=== PATIENT | female | born 1940 | race Caucasian/White ===

== ENCOUNTER 2017-06-09 17:10 | Inpatient (IN) | payer OTHER, MEDICAID ==
[~2017-06-09] VITALS: Ht 152.4 cm; Wt 46.0 kg
[~2017-06-09 17:10] MED LIST: SYN1 PO; VIT1CAPS PO
[2017-06-09 17:13] VITALS: Ht 152.4 cm; Wt 46.0 kg
[2017-06-09] MEDS ORDERED: SOD CHLORIDE 0.9% 1,000 ML IV STA ×4 (20:57→23:50)
[2017-06-09] MEDS ORDERED: ONDANSETRON 4 MG INJ IV STA (20:57)
[2017-06-09] MEDS ORDERED: morphine 2 MG INJ IV STA (20:57)
[2017-06-09 21:58] LABS: ADD SCAN DIFF NO
[2017-06-09 22:00] LABS: BASOPHILS % 0.1 % (0.0-2.0); HEMATOCRIT 50.7 % (37.0-47.0); HEMOGLOBIN 16.4 g/dl (12.0-16.0); LYMPHOCYTES # 1.1 10^3/ul (0.8-2.9); LYMPHOCYTES % 7.1 % (15.0-51.0); MEAN CORPUSCULAR HEMOGLOBIN 29.3 pg (29.0-33.0); MEAN CORPUSCULAR HGB CONC 32.3 g/dl (32.0-37.0); MEAN CORPUSCULAR VOLUME 90.5 fl (82.0-101.0); MEAN PLATELET VOLUME 11.2 fl (7.4-10.4); MONOCYTE # 1.2 10^3/ul (0.3-0.9); MONOCYTES % 7.7 % (0.0-11.0); NEUTROPHIL # 13.3 10^3/ul (1.6-7.5); NEUTROPHILS % 84.1 % (39.0-77.0); PLATELET COUNT 338 10^3/UL (140-415); RED CELL DISTRIBUTION WIDTH 15.4 % (11.5-14.5); WHITE BLOOD COUNT 15.8 10^3/ul (4.8-10.8)
[2017-06-09] MEDS ORDERED: MULTI PO (22:03)
[2017-06-09 22:20] LABS: INR 1.09; PARTIAL THROMBOPLASTIN TIME 27.5 Sec (25.0-35.0); PROTIME 14.1 Sec (12.2-14.2); PT RATIO 1.1
[2017-06-09 22:21] LABS: ALBUMIN 4.2 g/dl (3.3-4.9); ALBUMIN/GLOBULIN RATIO 1.31; BILIRUBIN,INDIRECT 1.1 mg/dl (0-1.1); BILIRUBIN,TOTAL 1.1 mg/dl (0.2-1.3); CALCIUM 9.7 mg/dl (8.4-10.2); CREATININE 1.67 mg/dl (0.44-1.00); POTASSIUM 4.2 mmol/L (3.5-5.1); TOTAL PROTEIN 7.4 g/dl (6.1-8.1)
--- NOTE | 2017-06-09 23:21 | RADRPT ---
PROCEDURE: CT abdomen and pelvis without contrast. CLINICAL INDICATION: Abdomen and back pain TECHNIQUE: CT scan of the abdomen and pelvis without contrast was performed. Sagittal and coronal reformatted images were obtained from the axial source images. CTDI = 10.12 mGy; DLP = 416.66 mGy-c m COMPARISON: None available FINDINGS: Visualized lower thorax: The right lung base is clear. The entire visible left lower hemithorax sh ows a huge pleural effusion with compressive atelectasis of the left lung and deviation of the media stinal structures to the right, the attenuation of the fluid approximately 16 HU. No right pleural effusion is present. Liver, gallbladder, pancreas and spleen: The liver is normal and size, contour and attenuation. Th ere is no evidence for a liver mass or ductal dilatation. The gallbladder is unremarkable. No comm on bile duct abnormality is demonstrated. The pancreas is unremarkable. The spleen is normal in si ze. Adrenal glands and genitourinary system: The adrenal glands are normal bilaterally. The kidneys are normal and size, contour and attenuation with no evidence for masses, calculi or hydronephrosis. T he ureters are unremarkable. No urinary bladder abnormality is demonstrated. Multiple calcified ut erine leiomyomata are present. Gastrointestinal system: The stomach is normal in caliber with no abnormality of significance. The small bowel is normal in caliber with no ileus, obstruction or wall thickening. The appendix and s urrounding fat are within the limits of normal. Diffuse diverticular disease of the distal colon is present. There is no evidence for colitis or diverticulitis. Peritoneum, retroperitoneum, lymph nodes and vessels: The abdominal aorta is normal in caliber. The re is moderate aortic and iliac atherosclerotic calcification. The inferior vena cava is unremarkab le. There is no evidence for adenopathy or mass. There is no ascites. No pneumoperitoneum is prese nt. Osseous structures and musculoskeletal findings: There is no fracture, lytic or blastic lesion. En d plate Schmorl's nodes and thoracic spondylosis is present with degenerative disk disease at L5-S1. No muscular abnormality or soft tissue pathology is present. RPTAT:HJJR IMPRESSION: 1. Large left pleural effusion with compressive atelectasis of the visualized mediastinal structures and inferior displacement of the left hemidiaphragm. Consider consultation for thoracentesis. 2. No evidence of bowel obstruction or acute intra-abdominal pathology. 3. Calcified uterine leiomyomata.. 4. Aortic atherosclerosis is present. Brady Monroy, Physician Date Time Electronically viewed and signed by Brady Monroy, Physician on 06/09/2017 23:20 JR/
--- NOTE | 2017-06-09 23:59 | ERA ---
ER Documentation Chief Complaint Date/Time DATE: 06/09/17 TIME: 23:51 Chief Complaint Complains of severe back pain HPI This is a 76-year-old female that presents to the emergency department complaining of left flank pain that has been persistent for the past 2 weeks after the patient experienced a ground-level trip and fall. The patient had gone to her chiropractor and had radiographic imaging of her lumbar spine and pelvis which indicated there is no fractures. She states however that the left flank pain has now radiated to the left thoracic region. There is no alleviating or exacerbating factors. She has had no fever shaking or chills. She denies any gross hematuria no frequency urgency or dysuria. She denies a headache. She indicates she has a remote history of breast carcinoma that was treated with oral chemotherapy agents but cannot remember the name of her oncologist or when she took this medication. She denies any neck pain and no numbness of her upper or lower extremities. ROS All systems reviewed and are negative except as per history of present illness. Medications Home Meds Reported Medications Multivitamins* (Theragran*) 1 Tab Tab, 1 TAB PO DAILY, TAB 06/09/17 Levothyroxine Sodium* (Synthroid*) 100 Mcg Tablet, 100 MCG PO DAILY 01/09/14 Discontinued Reported Medications Vit A/Vit C/Vit E/Zinc/Copper (ICAPS AREDS SOFTGEL) 1 Each Capsule, 2 EACH PO DAILY 01/09/14 Allergies Allergies: Coded Allergies: Penicillins (Verified Allergy, Unknown, 06/09/17) Sulfa (Sulfonamide Antibiotics) (Verified Allergy, Unknown, 06/09/17) PMhx/Soc History of Surgery: Yes (LEFT BREAST REMOVAL, LEFT LYMPH NODES,THYROIDECTOMY) Anesthesia Reaction: No Hx Neurological Disorder: No Hx Respiratory Disorders: No Hx Cardiac Disorders: No Hx Psychiatric Problems: No Hx Miscellaneous Medical Probl: No Hx Alcohol Use: No Hx Substance Use: No Hx Tobacco Use: No Smoking Status: Never smoker Physical Exam Vitals Vital Signs Date Time Temp Pulse Resp B/P Pulse Ox O2 Delivery O2 Flow Rate FiO2 06/09/17 20:10 97.6 104 20 122/90 96 Room Air 06/09/17 17:13 97.6 117 20 114/65 94 Physical Exam Constitutional:Well-developed. Cachectic HEENT:Normocephalic. Atraumatic.Pupils were equal round reactive to light. Dry mucous membranes.No tonsillar exudates. Neck: No nuchal rigidity. No lymphadenopathy. No posterior cervical spine tenderness or step-offs. Respiratory: Not using accessory muscles of respiration.Lungs were clear to auscultation bilaterally. No rhonchi. No rales. No wheezing. Cardiovascular: Regular rate regular rhythm.No murmurs. No rubs were appreciated.S1, S2 normal. Distal pulses are palpable 2+ bilaterally. GI: Abdomen was soft. Nontender. Non Distended. No pulsatile abdominal masses or bruits. No rebound. No guarding. Bowel sounds were present and normal. Left flank tenderness and tenderness over the left parathoracic region. Muscle skeletal: Full range of motion of both the upper and lower extremities bilaterally.Normal muscle tone.No assymetrical calf tenderness or swelling. 1+ pitting edema the bilateral lower extremities. Lower extremities are equal length and symmetrical with no internal/external rotation peer Skin: No petechia, no purpura. No lesions on the palms or the soles of the feet. No maculopapular rash. Erythematous plaque over the left chest wall which patient states is due to a Danielle infection several years prior to arrival NEURO: Patient was alert, awake, orientated x3.No facial droop. Gait observed and normal with no ataxia.Speech had regular rate and rhythm. No focal neurological deficits. Result Diagram: 06/09/17213206/09/172132 Results 24 hrs Laboratory Tests Test 06/09/17 21:33 White Blood Count 15.810^3/ul Red Blood Count 5.6010^6/ul Hemoglobin 16.4g/dl Hematocrit 50.7% Mean Corpuscular Volume 90.5fl Mean Corpuscular Hemoglobin 29.3pg Mean Corpuscular Hemoglobin Concent 32.3g/dl Red Cell Distribution Width 15.4% Platelet Count 24502^3/UL Mean Platelet Volume 11.2fl Neutrophils % 84.1% Lymphocytes % 7.1% Monocytes % 7.7% Eosinophils % 0.0% Basophils % 0.1% Nucleated Red Blood Cells % 0.0/100WBC Neutrophils # 13.310^3/ul Lymphocytes # 1.110^3/ul Monocytes # 1.210^3/ul Eosinophils # 0.010^3/ul Basophils # 0.010^3/ul Nucleated Red Blood Cells # 0.010^3/ul Prothrombin Time 14.1Sec Prothrombin Time Ratio 1.1 INR International Normalized Ratio 1.09 Activated Partial Thromboplast Time 27.5Sec Sodium Level 132mmol/L Potassium Level 4.2mmol/L Chloride Level 100mmol/L Carbon Dioxide Level 22mmol/L Anion Gap 14 Blood Urea Nitrogen 65mg/dl Creatinine 1.67mg/dl Glucose Level 111mg/dl Calcium Level 9.7mg/dl Total Bilirubin 1.1mg/dl Direct Bilirubin 0.00mg/dl Indirect Bilirubin 1.1mg/dl Aspartate Amino Transf (AST/SGOT) 52IU/L Alanine Aminotransferase (ALT/SGPT) 75IU/L Alkaline Phosphatase 118IU/L Total Protein 7.4g/dl Albumin 4.2g/dl Globulin 3.20g/dl Albumin/Globulin Ratio 1.31 Current Medications Medications (Trade) Dose Ordered Sig/Aparna Route PRN Reason Start Time Stop Time Status Last Admin Dose Admin Sodium Chloride (NS) 1,000 ml @ 1,000 mls/hr Q1H STAT IV 06/09/17 20:57 06/09/17 21:56 DC 06/09/17 21:36 Morphine Sulfate (morphine) 2 mg ONCE STAT IV 06/09/17 20:57 06/09/17 20:59 DC 06/09/17 21:35 Ondansetron HCl 4 mg 4 mg ONCE STAT IV 06/09/17 20:57 06/09/17 20:59 DC 06/09/17 21:35 Sodium Chloride 1,000 ml @ 1,000 mls/hr Q1H STAT IV 06/09/17 23:29 06/10/17 00:28 Sodium Chloride (NS) 1,000 ml @ 1,000 mls/hr Q1H STAT IV 06/09/17 23:46 06/10/17 00:45 UNV Procedures/MDM The patient presented to the emergency department with flank pain after a ground -level trip and fall. My differential diagnosis included but was not limited to spinal origins of the pain such as fracture, osteomyelitis, epidural abscess, neoplasm, spondylolishtesis, discogenic, cauda equina syndrome or musculoligamentous. Nonspinal causes such as AAA, upper UTI, renal colic, aortic dissection, abdominal neoplasm were also considered as an etiology into their pain. I obtained radiographic imaging a CT scan of the patient's abdomen without contrast due to the patient having acute renal failure that was likely prerenal secondary to dehydration and treated with IV fluids. The CT scan indicated that the patient had the followin. Large left pleural effusion with compressive atelectasis of the visualized mediastinal structures and inferior displacement of the left hemidiaphragm. Consider consultation for thoracentesis. 2. No evidence of bowel obstruction or acute intra-abdominal pathology. 3. Calcified uterine leiomyomata.. 4. Aortic atherosclerosis is present. The patient's primary care physician I have spoken with and stated that she is currently on vacation until June 30 and therefore requested that the patient be admitted to the panel physician which was Dr. Estes who kindly stated he would admit the patient to the medical surgical floor in serious condition for further evaluation into the patient's pleural effusion which could be a result of a malignant neoplasm and there did not appear to be any rib fractures or pneumothorax that was seen on the chest radiograph reviewed by myself the radiologist. Blood cultures and urine cultures were obtained and the patient was started on prophylactic antibiotics as I could not rule out an underlying pulmonary infectious process. Patient was afebrile but had leukocytosis Departure Diagnosis: Primary Impression: Injury of back Qualified Code: S39.92XA - Injury of back, initial encounter Additional Impressions: Pleural effusion Prerenal azotemia Condition: Serious CRYSTAL IZAGUIRRE Jun 09, 2017 23:59
[2017-06-10] VITALS (10 sets, daily range): BP systolic 70–152; BP diastolic 51–74; PULSE 86–105; RESP 18–26; TEMP 97.8
[2017-06-10] MEDS ORDERED: NACL 0.9% 3 ML SYG IV SCH
[2017-06-10] MEDS ORDERED: ACETAMINOPHEN 325 MG TAB PO PRN
--- NOTE | 2017-06-10 00:18 | RADRPT ---
PROCEDURE: XR Chest. CLINICAL INDICATION: Left side chest pain. TECHNIQUE: Single frontal view of the chest COMPARISON: 01/18/2014. FINDINGS: Complete opacification of the left hemithorax is new over interval cardiac and mediastinal shift to the right. Findings suggest a lung mass and effusion. Recommend CT examination of the chest for fu rther evaluation. The osseous structures and soft tissues are unremarkable. IMPRESSION: 1. New complete opacification left hemithorax with left to right midline shift of mediastinum and h eart. 2. Findings suggest lung mass and effusion. 3. Recommend CT examination the chest for further evaluation. RPTAT: [facility] Physician Vicky Date Time Electronically viewed and signed by Physician Vicky on 06/10/2017 00:18 RS/
[2017-06-10] MEDS: morphine 2 MG INJ IV PRN ×3 (01:16→13:36)
--- NOTE | 2017-06-10 03:00 | HP ---
Date/Time of Note Date/Time of Note DATE: 06/10/17 TIME: 02:55 Assessment/Plan VTE Prophylaxis VTE Prophylaxis Intervention: SCD's Assessment/Plan Chief Complaint/Hosp Course This is a 76-year-old female being admitted to the telemetry floor for: #1 Large left pleural effusion/mass: Patient has been experiencing left back pain for approximately [address] of the abdomen and pelvis did show pleural effusions of the left side and a chest x-ray showed almost complete whiteout of the left lung secondary to pleural effusion and/or mass. CT of the chest was recommended and I discussed this with the patient and she would prefer to have this in the morning so she can rest overnight. As the patient is currently stable, I will order a CT chest in the a.m. Will get a pulmonary consult. Likely will need IR guided thoracentesis/biopsy depending on the CT chest findings. She does have a past history of breast cancer which raises a concern for this being possible malignant effusion/possible underlying mass. #2 Leukocytosis: Patient at the current time does not have any fevers no cough. No signs of infection however there could be concern of possible pneumonia with the appearance of her lungs on the chest x-ray. This also could be reactive. At the current time we will continue to monitor the patient and I will hold off on any antibiotics at this time. If there are any fevers or any signs of infection or any further findings on the CT scan of the chest we will start antibiotics. #3 acute kidney injury: Patient does appear to be dehydrated at this time. Will provide IV fluid hydration. Continue to monitor kidney function. #4 history of breast cancer: Patient is status post right radical mastectomy. In light of #1 we will consider hematology consult depending on the findings of the CT of the chest and/or thoracentesis/biopsy if indeed that is what ends up being ordered. #5 back pain: She did have a fall 2 weeks ago at the current time there are no signs of any acute fractures on XR or CT of the abdomen and pelvis. Will get evaluation CT of the chest. Her pain may be multifactorial secondary to her pleural effusion and/or mass as opposed to from her fall. #6 DVT and GI prophylaxis: SCDs, protonix Further treatment strategy will be implemented as per the clinical course Problems: HPI/ROS Admit Date/Time Admit Date/Time Hx of Present Illness CC: left flank pain for 2 weeks This is a 76-year-old female that presents to the emergency department complaining of left flank pain that has been persistent for the past 2 weeks after the patient experienced a ground-level trip and fall. The patient had gone to her chiropractor and had radiographic imaging of her lumbar spine and pelvis which indicated there is no fractures. She states however that the left flank pain has now radiated to the left thoracic region. There is no alleviating or exacerbating factors. She has had no fever shaking or chills. She denies any gross hematuria no frequency urgency or dysuria. She denies a headache. She indicates she has a remote history of breast carcinoma that was treated with oral chemotherapy agents but cannot remember the name of her oncologist or when she took this medication. She denies any neck pain and no numbness of her upper or lower extremities. allergies: Penicillin, sulfa Medications: See NEREIDA RAMIREZ Const: As per HPI Eyes : No pain discharge or redness or change in visual acuity ENT: No pain, sore throat, congestion, congestion, dysphagia or discharge Respiratory: As per HPI Cardiovascular: No chest pain, palpitation, PND, or edema GI : no change in appetite, abdominal pain, nausea, vomiting, diarrhea, constipation, or change in the color his stool Genitourinary: No dysuria, hematuria, flank pain , discharge or CVA tenderness Musculoskeletal: As per HPI Skin: No rash, bruising or hives Neuro: No headache, dizziness, syncope, seizure, focal weakness Endocrine: No polyuria, polydipsia, temperature intolerance Psych: No hallucination, depression, anxiety or suicidal ideation PMH/Family/Social Past Medical History Breast cancer, hypothyroidism Past Surgical History Left breast mastectomy, thyroidectomy Family History Significant Family History: cancer Social History Alcohol Use: none Smoking Status: Never smoker Drug Use: none Exam/Review of Systems Vital Signs Vitals Vital Signs Date Time Temp Pulse Resp B/P Pulse Ox O2 Delivery O2 Flow Rate FiO2 06/10/17 01:01 97.6 95 20 101/86 94 Room Air Exam Exam General: Patient is a frail appearing female in mild distress from pain HEENT: Atraumatic, normocephalic. The pupils are equal, round and reactive. Extraocular motor are intact Neck: Supple with full range of motion. No rigidity or meningismus Chest: Nontender Lungs: Decreased breath sounds on the left side of the lung guo Heart: Normal S1-S2, Regular rhythm and rate. No overt murmur Abdomen: Soft , nontender, nondistended , bowel sounds are present. No guarding no rebound tenderness , No masses or organomegaly. No costovertebral temporal angle mass Extremities: Normal to inspection, no edema no cyanosis Neurologic: Normal mental status, speech normal, cranial nerves II through XII are intact, motor and sensory are intact, no focal weakness Additional Comments PROCEDURE: XR Chest. CLINICAL INDICATION: Left side chest pain. TECHNIQUE: Single frontal view of the chest COMPARISON: 01/18/2014. FINDINGS: Complete opacification of the left hemithorax is new over interval cardiac and mediastinal shift to the right. Findings suggest a lung mass and effusion. Recommend CT examination of the chest for further evaluation. The osseous structures and soft tissues are unremarkable. IMPRESSION: 1. New complete opacification left hemithorax with left to right midline shift of mediastinum and heart. 2. Findings suggest lung mass and effusion. 3. Recommend CT examination the chest for further evaluation. RPTAT: [facility] Physician Vicky Date Time Electronically viewed and signed by Physician Vicky on 06/10/2017 00:18 PROCEDURE: CT abdomen and pelvis without contrast. CLINICAL INDICATION: Abdomen and back pain TECHNIQUE: CT scan of the abdomen and pelvis without contrast was performed. Sagittal and coronal reformatted images were obtained from the axial source images. CTDI = 10.12 mGy; DLP = 416.66 mGy-cm COMPARISON: None available FINDINGS: Visualized lower thorax: The right lung base is clear. The entire visible left lower hemithorax shows a huge pleural effusion with compressive atelectasis of the left lung and deviation of the mediastinal structures to the right, the attenuation of the fluid approximately 16 HU. No right pleural effusion is present. Liver, gallbladder, pancreas and spleen: The liver is normal and size, contour and attenuation. There is no evidence for a liver mass or ductal dilatation. The gallbladder is unremarkable. No common bile duct abnormality is demonstrated. The pancreas is unremarkable. The spleen is normal in size. Adrenal glands and genitourinary system: The adrenal glands are normal bilaterally. The kidneys are normal and size, contour and attenuation with no evidence for masses, calculi or hydronephrosis. The ureters are unremarkable. No urinary bladder abnormality is demonstrated. Multiple calcified uterine leiomyomata are present. Gastrointestinal system: The stomach is normal in caliber with no abnormality of significance. The small bowel is normal in caliber with no ileus, obstruction or wall thickening. The appendix and surrounding fat are within the limits of normal. Diffuse diverticular disease of the distal colon is present. There is no evidence for colitis or diverticulitis. Peritoneum, retroperitoneum, lymph nodes and vessels: The abdominal aorta is normal in caliber. There is moderate aortic and iliac atherosclerotic calcification. The inferior vena cava is unremarkable. There is no evidence for adenopathy or mass. There is no ascites. No pneumoperitoneum is present. Osseous structures and musculoskeletal findings: There is no fracture, lytic or blastic lesion. End plate Schmorl's nodes and thoracic spondylosis is present with degenerative disk disease at L5-S1. No muscular abnormality or soft tissue pathology is present. RPTAT:HJJR IMPRESSION: 1. Large left pleural effusion with compressive atelectasis of the visualized mediastinal structures and inferior displacement of the left hemidiaphragm. Consider consultation for thoracentesis. 2. No evidence of bowel obstruction or acute intra-abdominal pathology. 3. Calcified uterine leiomyomata.. 4. Aortic atherosclerosis is present. Physician Yuriy Date Time Electronically viewed and signed by Physician Yuriy on 06/09/2017 23:20 Labs Result Diagram: 06/09/17213206/09/172132 Medications Medications Current Medications Ondansetron HCl (Zofran Inj) 4 mg Q6H PRN IV NAUSEA AND/OR VOMITING; Start at 00:00 Acetaminophen (Tylenol Tab) 650 mg Q6H PRN PO PAIN LEVEL 1-3 OR FEVER; Start at 00:00 Morphine Sulfate (morphine) 1 mg Q4H PRN IV PAIN LEVEL 7-10 Last administered on 06/10/17t 01:16; Admin Dose 1 MG; Start 06/10/17 at 00:00 Pantoprazole (Protonix Iv) 40 mg DAILY@06 IV ; Start 06/10/17 at 06:00 GAGANDEEP TOVAR Jun 10, 2017 03:00
[2017-06-10 03:38] LABS: CK-MB 4.45 ng/ml (0.0-2.4); TROPONIN-I 0.039 ng/ml (0.00-0.12)
[2017-06-10] MEDS: LEVOTHYROXINE 100 MCG TAB PO SCH (05:28)
[2017-06-10] MEDS: PANTOPRAZOLE 40 MG INJ IV SCH (05:32)
[2017-06-10 06:00] LABS: ADD SCAN DIFF NO
[2017-06-10 06:51] LABS: ALBUMIN 3.7 g/dl (3.3-4.9); ALBUMIN/GLOBULIN RATIO 1.19; BILIRUBIN,INDIRECT 0.8 mg/dl (0-1.1); BILIRUBIN,TOTAL 0.8 mg/dl (0.2-1.3); CALCIUM 8.9 mg/dl (8.4-10.2); CREATININE 1.4 mg/dl (0.44-1.00); MAGNESIUM 2.5 mg/dl (1.7-2.5); POTASSIUM 4.3 mmol/L (3.5-5.1); TOTAL PROTEIN 6.8 g/dl (6.1-8.1)
[2017-06-10 07:26] LABS: THYROID STIMULATING HORMONE 2.08 MIU/L (0.465-4.680)
[2017-06-10 08:57] LABS: BASOPHILS % 0.1 % (0.0-2.0); HEMATOCRIT 50.2 % (37.0-47.0); HEMOGLOBIN 15.8 g/dl (12.0-16.0); LYMPHOCYTES % 6.8 % (15.0-51.0); MEAN CORPUSCULAR HEMOGLOBIN 29.2 pg (29.0-33.0); MEAN CORPUSCULAR HGB CONC 31.5 g/dl (32.0-37.0); MEAN CORPUSCULAR VOLUME 92.6 fl (82.0-101.0); MEAN PLATELET VOLUME 11.4 fl (7.4-10.4); MONOCYTE # 1.3 10^3/ul (0.3-0.9); MONOCYTES % 8.6 % (0.0-11.0); NEUTROPHIL # 12.5 10^3/ul (1.6-7.5); NEUTROPHILS % 83.5 % (39.0-77.0); PLATELET COUNT 286 10^3/UL (140-415); RED BLOOD COUNT 5.42 10^6/ul (4.20-5.40); RED CELL DISTRIBUTION WIDTH 15.8 % (11.5-14.5); WHITE BLOOD COUNT 14.9 10^3/ul (4.8-10.8)
--- NOTE | 2017-06-10 10:13 | RADRPT ---
PROCEDURE: CT Chest without contrast. CLINICAL INDICATION: Left pleural effusion, mass TECHNIQUE: CT of the chest was performed on a multi-detector scanner without IV contrast. Coronal and sagittal images were reformatted from the axial data set. One or more of the following dose re duction techniques were used: automated exposure control, adjustment of the mA and/or kV according t o patient size, use of iterative reconstruction technique. CTDI = 6.89 mGy. DLP = 279.42 mGy-cm. COMPARISON: CT, 01/09/2014 FINDINGS: Large left pleural effusion is identified, filling and expanding of the left hemithorax, with comple te collapse of the left lung. There is significant shift of mediastinal structures to the right, arellano ggestive of tension hydrothorax. Small right pleural effusion is identified. Areas of chronic scar ring and bronchiectasis are seen in the right lung. The central tracheobronchial tree is clear. No gross evidence of pulmonary nodule or mass is identified. The heart size is normal without pericardial effusion. Coronary arterial and aortic atherosclerotic calcifications are present. There is no thoracic aortic aneurysm. No mediastinal, hilar, axillary or supraclavicular lymphadenopathy is identified. Visualized portions of the upper abdomen demonstrate no acute abnormality. The surrounding osseous structures are remarkable for scoliosis and degenerative enthesopathy of the spine. No osteolytic o r osteoblastic lesion is detected. IMPRESSION: 1. 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 Consider thoracentesis for further evaluation. 2. Coronary arterial and aortic atherosclerotic calcifications are present. 3. Small right pleural effusion is seen as well. 4. No gross evidence of mass or lymphadenopathy is identified. Above findings were communicated by telephone to JEET Turcios on 06/10/2017 10:08:41 AM. RPTAT: PP .Hermes Roberts MD, Date Time Electronically viewed and signed by .Hermes Roberts MD, MD on 06/10/2017 10:13 .R/
[2017-06-10] MEDS: MULTIVITAMINS THERAPEUTIC TAB PO SCH ×2 (11:28→11:34)
--- NOTE | 2017-06-10 15:13 | CONS ---
Date/Time of Note Date/Time of Note DATE: 06/10/17 TIME: 15:09 Assessment/Plan Assessment/Plan Chief Complaint/Hosp Course Assessment 1. Acute hypoxemic respiratory failure likely secondary to pleural effusion 2. Pleural effusion likely malignant given history of breast cancer 3. Weight loss and cachexia concerning for progressive metastatic disease Plan 1. Thoracentesis Pleural fluid studies including cytology Gram stain culture LDH and protein 2. May require chest tube or Pleurx catheter 3. Consider hematology oncology evaluation 4. Will require social work input patient is unlikely to be able to live by myself at present 5. DVT and GI prophylaxis Problems: Consultation Date/Type/Reason Admit Date/Time Date of Consultation: Jun 10, 2017 Type of Consultation: Pulmonary Reason for Consultation Shortness of breath Hx of Present Illness 76-year-old lady with a history of left breast cancer status post mastectomy. Here for evaluation of shortness of breath which she states has been progressive over the past few weeks. Associated with orthopnea and PND. On admission she was found to have significant extensive large left pleural effusion with mediastinal shift. She denies any fever chills chest pain or palpitations. She has had worsening appetite over the past few months with significant weight loss which she is unable to quantify. She is currently a non -smoker denies any significant alcohol intake. She lives by herself Past Medical History Breast cancer with left mastectomy radiation Past Surgical History Left mastectomy 1997 Social History Alcohol Use: none Smoking Status: Never smoker Drug Use: none Exam/Review of Systems Vital Signs Vitals Vital Signs Date Time Temp Pulse Resp B/P Pulse Ox O2 Delivery O2 Flow Rate FiO2 06/10/17 13:33 99 22 109/74 97 Nasal Cannula 2.0 06/10/17 07:30 97.8 Exam GENERAL: Thin cachectic elderly lady comfortable at rest talking full complete sentences VITAL SIGNS: per chart NECK: Supple. No JVD or lymphadenopathy. CARDIAC EXAM: S1, S2. No added sounds or murmurs. CHEST: diminished air entry left lung ABDOMEN: Soft, nontender. No guarding or rebound. EXTREMITIES: No cyanosis, clubbing or edema. NEUROLOGIC: Generalized weakness. No focal deficits. Results Chest x-ray Left lung opacification with mediastinal shift CT chest extensive left pleural effusion Result Diagram: 06/10/17 0530 06/10/17 0530 Results 24 hrs Laboratory Tests Test 06/09/17 21:33 06/10/17 02:50 06/10/17 05:30 White Blood Count 15.8 H 14.9 H Red Blood Count 5.60 H 5.42 H Hemoglobin 16.4 H 15.8 Hematocrit 50.7 H 50.2 H Mean Corpuscular Volume 90.5 92.6 Mean Corpuscular Hemoglobin 29.3 29.2 Mean Corpuscular Hemoglobin Concent 32.3 31.5 L Red Cell Distribution Width 15.4 H 15.8 H Platelet Count 338 286 Mean Platelet Volume 11.2 H 11.4 H Neutrophils % 84.1 H 83.5 H Lymphocytes % 7.1 L 6.8 L Monocytes % 7.7 8.6 Eosinophils % 0.0 0.0 Basophils % 0.1 0.1 Nucleated Red Blood Cells % 0.0 0.0 Neutrophils # 13.3 H 12.5 H Lymphocytes # 1.1 1.0 Monocytes # 1.2 H 1.3 H Eosinophils # 0.0 0.0 Basophils # 0.0 0.0 Nucleated Red Blood Cells # 0.0 0.0 Prothrombin Time 14.1 Prothrombin Time Ratio 1.1 INR International Normalized Ratio 1.09 Activated Partial Thromboplast Time 27.5 Sodium Level 132 L 131 L Potassium Level 4.2 4.3 Chloride Level 100 106 Carbon Dioxide Level 22 16 L Anion Gap 14 13 Blood Urea Nitrogen 65 H 60 H Creatinine 1.67 H 1.40 H Glucose Level 111 118 Calcium Level 9.7 8.9 Total Bilirubin 1.1 0.8 Direct Bilirubin 0.00 0.00 Indirect Bilirubin 1.1 0.8 Aspartate Amino Transf (AST/SGOT) 52 H 55 H Alanine Aminotransferase (ALT/SGPT) 75 H 75 H Alkaline Phosphatase 118 120 Total Protein 7.4 6.8 Albumin 4.2 3.7 Globulin 3.20 3.10 Albumin/Globulin Ratio 1.31 1.19 Creatine Kinase 97 Creatine Kinase Index 4.6 Creatinine Kinase MB (Mass) 4.45 H Troponin I 0.039 Hemoglobin A1c 5.3 Magnesium Level 2.5 Thyroid Stimulating Hormone (TSH) 2.080 Medications Medications Current Medications Ondansetron HCl (Zofran Inj) 4 mg Q6H PRN IV NAUSEA AND/OR VOMITING; Start at 00:00 Acetaminophen (Tylenol Tab) 650 mg Q6H PRN PO PAIN LEVEL 1-3 OR FEVER; Start at 00:00 Morphine Sulfate (morphine) 1 mg Q4H PRN IV PAIN LEVEL 7-10 Last administered on 06/10/17 13:36; Admin Dose 1 MG; Start 06/10/17 at 00:00 Pantoprazole (Protonix Iv) 40 mg DAILY@06 IV Last administered on 06/10/17 05: 32; Admin Dose 40 MG; Start 06/10/17 at 06:00 Levothyroxine Sodium (Synthroid) 100 mcg DAILY@06 PO Last administered on 05:28; Admin Dose 100 MCG; Start 06/10/17 at 06:00 Multivitamins Therapeutic (Theragran) 1 tab DAILY PO ; Start 06/10/17 at 09:00 LILLY MOODY MD, [facility] Jun 10, 2017 15:13
[2017-06-10] MEDS ORDERED: LIDOCAINE 1% (MPF) 5 ML VIAL ONE (15:36)
--- NOTE | 2017-06-10 15:49 | RADRPT ---
PROCEDURE: US guided left thoracentesis. CLINICAL INDICATION: Shortness of breath. Left pleural effusion. TECHNIQUE: Prior to the procedure, informed consent was obtained. The risks, benefits, and alternatives were e xplained to the patient or the patient's family, including but not limited to bleeding, infection, p ain, visceral or vascular damage, shock, pneumothorax, chest tube placement, air embolism, and . The patient or the patient's family understood the risks and the alternatives and wished to proce ed with the study. Informed written consent was obtained. A procedural pause was performed. The patient's name, date of , and procedure to be performed were verified. Ultrasound of the left hemithorax was performed in the axial and sagittal planes. A left pleural eff usion is noted. Utilizing ultrasound guidance, optimal location for entry to the pleural cavity was ascertained. The overlying skin was prepped and draped in the usual sterile fashion. Approximately 10 ml of 1% Xylocaine was injected locally for pain control. Using ultrasound guidance, a 5-Thai Yueh catheter was introduced into the left pleural space without difficulty. Fluid was aspirated. COMPARISON: None. FINDINGS: Initial ultrasound demonstrates fluid in the left pleural space. Approximately 2.0 liters of serous fluid was aspirated and sent to the laboratory. IMPRESSION: 1. Satisfactory ultrasound-guided left thoracentesis. RPTAT: QQ .Christiano Jimenes MD, Date Time Electronically viewed and signed by .Christiano Jimenes MD, on 06/10/2017 15:49 .R/
--- NOTE | 2017-06-10 15:56 | RADRPT ---
PROCEDURE: XR Chest. CLINICAL INDICATION: Shortness of breath. Post left thoracentesis. TECHNIQUE: Single frontal view. COMPARISON: 06/09/2017. FINDINGS: Previously noted left pleural effusion is now smaller and there is some improved aeration of the lef t upper lobe. The remainder of the left mid and lower lung zones are completely collapsed. Shift of the mediastinum to the right is no longer present. The right lung is clear and there is no right p leural effusion. The heart size is normal. There is no pneumothorax. IMPRESSION: 1. No pneumothorax following left thoracentesis. 2. There remains a large left pleural effusion and atelectasis throughout the left mid and lower sin ng zones. RPTAT: QQ .Christiano Jimenes MD, MD Date Time Electronically viewed and signed by .Christiano Jimenes MD, on 06/10/2017 15:55 .R/
[2017-06-10 17:46] LABS: FLUID LYMPHOCYTES 2 %; FLUID MONOCYTES 1 %
[2017-06-10 17:47] LABS: FLD TYPE THORACENTHESIS
[2017-06-10 17:48] LABS: FLD CLARITY HAZY; FLD COLOR YELLOW; FLD WBC 512 /cmm; FLUID NEUTROPHILS 0 %; FLUID RBC EST 1+
[2017-06-10 18:45] LABS: FLUID TOTAL PROTEIN 4.8 g/dl
[2017-06-10 18:46] LABS: FLUID GLUCOSE < 20 mg/dl
[2017-06-10 18:47] LABS: FLUID TYPE THORACENTESIS FLUID
[2017-06-10] MEDS ORDERED: SOD CHLORIDE 0.9% 500 ML IV ONE (20:00)
[2017-06-10] MEDS ORDERED: VANCOMYCIN IV PER PHARMACY XX SCH (23:00)
[2017-06-11] VITALS (18 sets, daily range): BP systolic 77–113; BP diastolic 43–90; PULSE 93–108; RESP 17–27
[2017-06-11] MEDS ORDERED: VANCOMYCIN 1 GM in NS 250 ML IVPB SCH (00:30)
[2017-06-11] MEDS ORDERED: SOD CHLORIDE 0.9% 500 ML IV ONE (04:30)
[2017-06-11] MEDS: PANTOPRAZOLE 40 MG INJ IV SCH (05:07)
[2017-06-11] MEDS: LEVOTHYROXINE 100 MCG TAB PO SCH (05:08)
[2017-06-11 08:17] LABS: ADD SCAN DIFF NO
[2017-06-11 08:22] LABS: ABNORMAL IP MESSAGE 1; HEMATOCRIT 52.2 % (37.0-47.0); HEMOGLOBIN 16.5 g/dl (12.0-16.0); MEAN CORPUSCULAR HEMOGLOBIN 29.4 pg (29.0-33.0); MEAN CORPUSCULAR HGB CONC 31.6 g/dl (32.0-37.0); MEAN PLATELET VOLUME 10.9 fl (7.4-10.4); PLATELET COUNT 236 10^3/UL (140-415); RED BLOOD COUNT 5.61 10^6/ul (4.20-5.40); RED CELL DISTRIBUTION WIDTH 15.8 % (11.5-14.5); WHITE BLOOD COUNT 22.8 10^3/ul (4.8-10.8)
[2017-06-11] MEDS: MULTIVITAMINS THERAPEUTIC TAB PO SCH (08:28)
[2017-06-11 08:43] LABS: ALBUMIN 3.2 g/dl (3.3-4.9); ALBUMIN/GLOBULIN RATIO 1.1; BILIRUBIN,INDIRECT 0.8 mg/dl (0-1.1); BILIRUBIN,TOTAL 0.8 mg/dl (0.2-1.3); CALCIUM 8.7 mg/dl (8.4-10.2); CREATININE 1.61 mg/dl (0.44-1.00); POTASSIUM 4.4 mmol/L (3.5-5.1); TOTAL PROTEIN 6.1 g/dl (6.1-8.1)
[2017-06-11 09:57] LABS: CHOL/HDL RATIO 5.2 RATIO; MAGNESIUM 2.6 mg/dl (1.7-2.5); PHOSPHORUS 4.7 mg/dl (2.5-4.9)
[2017-06-11 11:13] LABS: ANISOCYTOSIS 1+; BURR CELLS OCCASIONAL; LYMPHOCYTES # 0.9 10^3/ul (0.8-2.9); MONOCYTE # 1.4 10^3/ul (0.3-0.9); NEUTROPHIL # 20.3 10^3/ul (1.6-7.5)
[2017-06-11] MEDS ORDERED: SOD CHLORIDE 0.9% 250 ML IV ONE ×2 (12:00→17:30)
--- NOTE | 2017-06-11 12:17 | PN ---
Date/Time of Note Date/Time of Note DATE: 06/11/17 TIME: 12:15 Assessment/Plan VTE Prophylaxis VTE Prophylaxis Intervention: SCD's Lines/Catheters IV Catheter Type (from [facility], [place]): Saline Lock Urinary Cath still in place: No Assessment/Plan Chief Complaint/Hosp Course 1. Acute hypoxic respiratory failure. Most probably secondary to pleural effusion. Continue inhaled bronchodilators. Continue supplemental oxygen. Status post left-sided thoracentesis on 06/10/2017. 2. Left-sided pleural effusion. 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 Status post thoracentesis on 06/10/2017 with the drainage of 2 L of serous fluid. Fluid studies pending. 3. Sepsis. Most probably secondary to left sided pneumonia with the one positive blood culture. The patient has been started on antibiotics. Will escalate antibiotic therapy. Involve infectious diseases on the case. 4. Acute kidney injury. Nonoliguric. Unknown baseline creatinine. Will avoid nephrotoxic medications. 5. History of breast cancer. Status post left radical mastectomy. 6. Protein calorie malnutrition. Mild. Encourage dietary supplements. 7. Hypothyroidism. Continue Synthroid. 8. Fluids, electrolytes, and nutrition. Regular diet as tolerated. 9. DVT prophylaxis. Bilateral sequential compression devices. 10. Gastrointestinal prophylaxis. Proton pump inhibitors. 11. Plan. Continue supplemental oxygen. Continue inhaled bronchodilators. Await further recommendations from consultants. Case discussed with . Problems: Subjective 24 Hr Interval Summary Free Text/Dictation Denies any dyspnea. Exam/Review of Systems Vital Signs Vitals Vital Signs Date Time Temp Pulse Resp B/P Pulse Ox O2 Delivery O2 Flow Rate FiO2 06/11/17 11:54 97.9 105 17 79/50 92 06/11/17 08:30 Nasal Cannula 2.0 Intake and Output 06/10/17 06/10/17 06/11/17 15:00 23:00 07:00 Intake Total 500 ml 1230 ml Output Total 300 ml Balance 500 ml 930 ml Exam General: Thin, malnourished, frail looking 68 year-old male lying in bed in no apparent distress. HEENT: Normocephalic, atraumatic. Eyes: Anicteric sclerae, conjunctivae clear. ENT: Nasal septum midline, oral mucosa moist. Neck supple, no JVD noticed. Respiratory: Bilaterally diminished breath sounds. Use of accessory muscles of respiration. Cardiovascular: S1, S2 heard. No murmurs or gallops. Abdomen: Soft, nontender, and nondistended. Bowel sounds positive in all 4 quadrants. Genitourinary: Deferred. Extremities: No cyanosis, no clubbing. Bilateral lower extremity 2+ pitting edema. Pedal pulses diminished Neurologic: Cranial nerves II through XII grossly intact. The patient is awake an alert. Oriented 3. Psychology: Hostile affect. Results Result Diagram: 06/11/17 0757 06/11/17 0757 Results 24 hrs Laboratory Tests Test 06/10/17 15:00 06/11/17 07:57 06/11/17 08:00 Body Fluid Type THORACENTESIS FLUID Body Fluid Volume 1100.0 Body Fluid Color YELLOW Body Fluid Appearance HAZY Body Fluid WBC 512 Body Fluid RBC 1+ Body Fluid Neutrophils % 0 Body Fluid Lymphocytes (%) 2 Body Fluid Monocytes % 1 Body Fluid Other Cells (%) 97 Body Fluid Glucose < 20 Body Fluid Total Protein 4.8 Body Fluid Lactate Dehydrogenase White Blood Count 22.8 #H Red Blood Count 5.61 H Hemoglobin 16.5 H Hematocrit 52.2 H Mean Corpuscular Volume 93.0 Mean Corpuscular Hemoglobin 29.4 Mean Corpuscular Hemoglobin Concent 31.6 L Red Cell Distribution Width 15.8 H Platelet Count 236 Mean Platelet Volume 10.9 H Neutrophils % 89.0 H Band Neutrophils % 1.0 Lymphocytes % 4.0 L Monocytes % 6.0 Neutrophils # 20.3 H Lymphocytes # 0.9 Monocytes # 1.4 H Anisocytosis 1+ Sodium Level 140 Potassium Level 4.4 Chloride Level 106 Carbon Dioxide Level 18 L Anion Gap 20 #H Blood Urea Nitrogen 68 H Creatinine 1.61 H Glucose Level 101 Calcium Level 8.7 Total Bilirubin 0.8 Direct Bilirubin 0.00 Indirect Bilirubin 0.8 Aspartate Amino Transf (AST/SGOT) 52 H Alanine Aminotransferase (ALT/SGPT) 62 Alkaline Phosphatase 100 Total Protein 6.1 Albumin 3.2 L Globulin 2.90 Albumin/Globulin Ratio 1.10 Phosphorus Level 4.7 Magnesium Level 2.6 H Triglycerides Level 149 Cholesterol Level 184 LDL Cholesterol, Calculated 119 HDL Cholesterol 35 Cholesterol/HDL Ratio 5.2 Medications Medications Current Medications Ondansetron HCl (Zofran Inj) 4 mg Q6H PRN IV NAUSEA AND/OR VOMITING; Start at 00:00 Acetaminophen (Tylenol Tab) 650 mg Q6H PRN PO PAIN LEVEL 1-3 OR FEVER; Start at 00:00 Morphine Sulfate (morphine) 1 mg Q4H PRN IV PAIN LEVEL 7-10 Last administered on 06/10/17 13:36; Admin Dose 1 MG; Start 06/10/17 at 00:00 Pantoprazole (Protonix Iv) 40 mg DAILY@06 IV Last administered on 06/11/17 05: 07; Admin Dose 40 MG; Start 06/10/17 at 06:00 Levothyroxine Sodium (Synthroid) 100 mcg DAILY@06 PO Last administered on 05:08; Admin Dose 100 MCG; Start 06/10/17 at 06:00 Multivitamins Therapeutic 1 tab 1 tab DAILY PO Last administered on 06/11/17 08:28; Admin Dose 1 TAB; Start 06/10/17 at 09:00 Vancomycin HCl/ Sodium Chloride (Vancocin/NS) 150 ml @ 75 mls/hr Q36H IVPB ; Start 06/12/17 at 13:00 Dimethicone 1 applic 1 applic Q2H PRN TOP dry lips.; Start 06/11/17 at 09:00 Sodium Chloride (NS) 250 ml @ 250 mls/hr Q1H ONCE IV ; Start 06/11/17 at 12:00 ; Stop 06/11/17 at 12:59 TRAVIS SORIANO NP Jun 11, 2017 12:17
--- NOTE | 2017-06-11 12:37 | CONS ---
Date/Time of Note Date/Time of Note DATE: 06/11/17 TIME: 12:35 Consult Date/Type/Reason Admit Date/Time Jun 10, 2017 at 00:01 Initial Consult Date 06/10/17 Type of Consultation: Pulmonary Subjective Awake and alert this morning somewhat agitated and combative. Objective Vital Signs Date Time Temp Pulse Resp B/P Pulse Ox O2 Delivery O2 Flow Rate FiO2 06/11/17 11:54 97.9 105 17 79/50 92 06/11/17 08:30 Nasal Cannula 2.0 Intake and Output 06/10/17 06/10/17 06/11/17 15:00 23:00 07:00 Intake Total 500 ml 1230 ml Output Total 300 ml Balance 500 ml 930 ml Exam GENERAL: Thin elderly cachectic lady awake alert comfortable mild confusion. VITAL SIGNS: per chart NECK: Supple. No JVD or lymphadenopathy. CARDIAC EXAM: S1, S2. No added sounds or murmurs. CHEST: Diminished air entry left base ABDOMEN: Soft, nontender. No guarding or rebound. EXTREMITIES: No cyanosis, clubbing or edema. NEUROLOGIC: Generalized weakness. No focal deficits. Results/Medications Result Diagram: 06/11/17 0757 06/11/17 0757 Results 24 hrs Laboratory Tests Test 06/10/17 15:00 06/11/17 07:57 06/11/17 08:00 Body Fluid Type THORACENTESIS FLUID Body Fluid Volume 1100.0 Body Fluid Color YELLOW Body Fluid Appearance HAZY Body Fluid WBC 512 Body Fluid RBC 1+ Body Fluid Neutrophils % 0 Body Fluid Lymphocytes (%) 2 Body Fluid Monocytes % 1 Body Fluid Other Cells (%) 97 Body Fluid Glucose < 20 Body Fluid Total Protein 4.8 Body Fluid Lactate Dehydrogenase White Blood Count 22.8 #H Red Blood Count 5.61 H Hemoglobin 16.5 H Hematocrit 52.2 H Mean Corpuscular Volume 93.0 Mean Corpuscular Hemoglobin 29.4 Mean Corpuscular Hemoglobin Concent 31.6 L Red Cell Distribution Width 15.8 H Platelet Count 236 Mean Platelet Volume 10.9 H Neutrophils % 89.0 H Band Neutrophils % 1.0 Lymphocytes % 4.0 L Monocytes % 6.0 Neutrophils # 20.3 H Lymphocytes # 0.9 Monocytes # 1.4 H Anisocytosis 1+ Sodium Level 140 Potassium Level 4.4 Chloride Level 106 Carbon Dioxide Level 18 L Anion Gap 20 #H Blood Urea Nitrogen 68 H Creatinine 1.61 H Glucose Level 101 Calcium Level 8.7 Total Bilirubin 0.8 Direct Bilirubin 0.00 Indirect Bilirubin 0.8 Aspartate Amino Transf (AST/SGOT) 52 H Alanine Aminotransferase (ALT/SGPT) 62 Alkaline Phosphatase 100 Total Protein 6.1 Albumin 3.2 L Globulin 2.90 Albumin/Globulin Ratio 1.10 Phosphorus Level 4.7 Magnesium Level 2.6 H Triglycerides Level 149 Cholesterol Level 184 LDL Cholesterol, Calculated 119 HDL Cholesterol 35 Cholesterol/HDL Ratio 5.2 Medications Current Medications Ondansetron HCl (Zofran Inj) 4 mg Q6H PRN IV NAUSEA AND/OR VOMITING; Start at 00:00 Acetaminophen (Tylenol Tab) 650 mg Q6H PRN PO PAIN LEVEL 1-3 OR FEVER; Start at 00:00 Morphine Sulfate (morphine) 1 mg Q4H PRN IV PAIN LEVEL 7-10 Last administered on 06/10/17 13:36; Admin Dose 1 MG; Start 06/10/17 at 00:00 Pantoprazole (Protonix Iv) 40 mg DAILY@06 IV Last administered on 06/11/17 05: 07; Admin Dose 40 MG; Start 06/10/17 at 06:00 Levothyroxine Sodium (Synthroid) 100 mcg DAILY@06 PO Last administered on 05:08; Admin Dose 100 MCG; Start 06/10/17 at 06:00 Multivitamins Therapeutic 1 tab 1 tab DAILY PO Last administered on 06/11/17 08:28; Admin Dose 1 TAB; Start 06/10/17 at 09:00 Vancomycin HCl/ Sodium Chloride (Vancocin/NS) 150 ml @ 75 mls/hr Q36H IVPB ; Start 06/12/17 at 13:00 Dimethicone 1 applic 1 applic Q2H PRN TOP dry lips.; Start 06/11/17 at 09:00 Sodium Chloride 250 ml @ 250 mls/hr Q1H ONCE IV Last administered on 12:03; Admin Dose 250 MLS/HR; Start 06/11/17 at 12:00; Stop 06/11/17 at 12: 59 Cefepime HCl (Maxipime 1gm/50 ml (Pmx)) 50 ml @ 100 mls/hr Q24H IVPB ; Start at 14:00 Assessment/Plan Chief Complaint/Hosp Course Assessment 1. Acute hypoxemic respiratory failure likely secondary to pleural effusion 2. Pleural effusion likely malignant given history of breast cancer, status post thoracentesis 2 L still with significant fluid in the pleural space. 3. Weight loss and cachexia concerning for progressive metastatic disease 4. Hypotension possibly underlying sepsis and/or adrenal insufficiency. Plan 1. Elevated pleural fluid protein concerning for malignancy. 2. May require chest tube or Pleurx catheter 3. Consider hematology oncology evaluation 4. Agree with transfer to intensive care unit for further monitoring. 5. DVT and GI prophylaxis Problems: LILLY MOODY MD, [facility] Jun 11, 2017 12:37
[2017-06-11] MEDS: CEFEPIME 1GM/50 ML (PMX) 50 ML IVPB SCH (13:58)
--- NOTE | 2017-06-11 14:45 | CONS ---
Date/Time of Note Date/Time of Note DATE: 06/11/17 TIME: 14:44 Consultation Date/Type/Reason Admit Date/Time Jun 10, 2017 at 00:01 Type of Consultation: ID Social History Alcohol Use: none Smoking Status: Never smoker Drug Use: none Exam/Review of Systems Vital Signs Vitals Vital Signs Date Time Temp Pulse Resp B/P Pulse Ox O2 Delivery O2 Flow Rate FiO2 06/11/17 14:07 100 96/65 06/11/17 11:54 97.9 17 92 06/11/17 08:30 Nasal Cannula 2.0 Intake and Output 06/10/17 06/10/17 06/11/17 15:00 23:00 07:00 Intake Total 500 ml 1230 ml Output Total 300 ml Balance 500 ml 930 ml Results Result Diagram: 06/11/17 0757 06/11/17 0757 Results 24 hrs Laboratory Tests Test 06/10/17 15:00 06/11/17 07:57 06/11/17 08:00 Body Fluid Type THORACENTESIS FLUID Body Fluid Volume 1100.0 Body Fluid Color YELLOW Body Fluid Appearance HAZY Body Fluid WBC 512 Body Fluid RBC 1+ Body Fluid Neutrophils % 0 Body Fluid Lymphocytes (%) 2 Body Fluid Monocytes % 1 Body Fluid Other Cells (%) 97 Body Fluid Glucose < 20 Body Fluid Total Protein 4.8 Body Fluid Lactate Dehydrogenase White Blood Count 22.8 #H Red Blood Count 5.61 H Hemoglobin 16.5 H Hematocrit 52.2 H Mean Corpuscular Volume 93.0 Mean Corpuscular Hemoglobin 29.4 Mean Corpuscular Hemoglobin Concent 31.6 L Red Cell Distribution Width 15.8 H Platelet Count 236 Mean Platelet Volume 10.9 H Neutrophils % 89.0 H Band Neutrophils % 1.0 Lymphocytes % 4.0 L Monocytes % 6.0 Neutrophils # 20.3 H Lymphocytes # 0.9 Monocytes # 1.4 H Anisocytosis 1+ Sodium Level 140 Potassium Level 4.4 Chloride Level 106 Carbon Dioxide Level 18 L Anion Gap 20 #H Blood Urea Nitrogen 68 H Creatinine 1.61 H Glucose Level 101 Calcium Level 8.7 Total Bilirubin 0.8 Direct Bilirubin 0.00 Indirect Bilirubin 0.8 Aspartate Amino Transf (AST/SGOT) 52 H Alanine Aminotransferase (ALT/SGPT) 62 Alkaline Phosphatase 100 Total Protein 6.1 Albumin 3.2 L Globulin 2.90 Albumin/Globulin Ratio 1.10 Phosphorus Level 4.7 Magnesium Level 2.6 H Triglycerides Level 149 Cholesterol Level 184 LDL Cholesterol, Calculated 119 HDL Cholesterol 35 Cholesterol/HDL Ratio 5.2 Medications Medications Current Medications Ondansetron HCl (Zofran Inj) 4 mg Q6H PRN IV NAUSEA AND/OR VOMITING; Start at 00:00 Acetaminophen (Tylenol Tab) 650 mg Q6H PRN PO PAIN LEVEL 1-3 OR FEVER; Start at 00:00 Morphine Sulfate (morphine) 1 mg Q4H PRN IV PAIN LEVEL 7-10 Last administered on 06/10/17 13:36; Admin Dose 1 MG; Start 06/10/17 at 00:00 Pantoprazole (Protonix Iv) 40 mg DAILY@06 IV Last administered on 06/11/17 05: 07; Admin Dose 40 MG; Start 06/10/17 at 06:00 Levothyroxine Sodium (Synthroid) 100 mcg DAILY@06 PO Last administered on 05:08; Admin Dose 100 MCG; Start 06/10/17 at 06:00 Multivitamins Therapeutic 1 tab 1 tab DAILY PO Last administered on 06/11/17 08:28; Admin Dose 1 TAB; Start 06/10/17 at 09:00 Vancomycin HCl/ Sodium Chloride (Vancocin/NS) 150 ml @ 75 mls/hr Q36H IVPB ; Start 06/12/17 at 13:00 Dimethicone 1 applic 1 applic Q2H PRN TOP dry lips.; Start 06/11/17 at 09:00 Cefepime HCl (Maxipime 1gm/50 ml (Pmx)) 50 ml @ 100 mls/hr Q24H IVPB Last administered on 06/11/17 13:58; Admin Dose 100 MLS/HR; Start 06/11/17 at 14:00 BRANDEE SHARMA MD Jun 11, 2017 14:45
[2017-06-11] MEDS: DIMETHICONE STICK TOP PRN (17:43)
[2017-06-11] MEDS ORDERED: ALBUTEROL 0.083% (NEB) 2.5 MG/3 ML AMP HHN PRN (18:00)
[2017-06-11] MEDS ORDERED: NORepinephrine 8MG/250 ML (PMX 250 ML IV SCH (18:00)
[2017-06-11] MEDS: ALBUTEROL 0.083% (NEB) 2.5 MG/3 ML AMP HHN SCH (19:11)
[2017-06-11 19:43] LABS: ADD UMIC NO; UR ASCORBIC ACID NEGATIVE (NEGATIVE); UR BILIRUBIN (Dip) NEGATIVE (NEGATIVE); UR BLOOD (Dip) NEGATIVE (NEGATIVE); UR CLARITY SLIGHTLY CLOUDY (CLEAR); UR COLOR YELLOW (YELLOW); UR GLUCOSE (Dip) NEGATIVE (NEGATIVE); UR KETONES (Dip) NEGATIVE (NEGATIVE); UR LEUKOCYTE ESTERASE (Dip) NEGATIVE Leu/ul (NEGATIVE); UR MUCUS FEW /HPF (NONE SEEN); UR NITRITE (Dip) NEGATIVE (NEGATIVE); UR RBC 0 /HPF (0-5); UR SPECIFIC GRAVITY (Dip) 1.019 (1.003-1.030); UR TOTAL PROTEIN (Dip) NEGATIVE (NEGATIVE); UR UROBILINOGEN (Dip) NEGATIVE (NEGATIVE)
--- NOTE | 2017-06-11 20:42 | RADRPT ---
PROCEDURE: XR Chest. CLINICAL INDICATION: Shortness of breath. TECHNIQUE: Single frontal view. COMPARISON: 06/10/2017. FINDINGS: There is mild right basilar atelectasis or pneumonia. There is extensive left mid and lower lung zo ne atelectasis or pneumonia and a large left pleural effusion, worse than seen previously. There is thoracic scoliosis convex right. The heart size is normal. There is no pneumothorax. IMPRESSION: 1. Worse appearance of the lungs and larger left pleural effusion. RPTAT: QQ .Christiano Jimenes MD, MD Date Time Electronically viewed and signed by .Christiano Jimenes MD, MD on 06/11/2017 20:41 .R/
[2017-06-12] VITALS (32 sets, daily range): BP systolic 81–123; BP diastolic 40–103; PULSE 96–117; RESP 11–34
[2017-06-12] MEDS: PANTOPRAZOLE 40 MG INJ IV SCH (05:30)
[2017-06-12 05:57] LABS: ADD SCAN DIFF NO
[2017-06-12 06:03] LABS: BASOPHILS % 0.1 % (0.0-2.0); HEMATOCRIT 49.7 % (37.0-47.0); HEMOGLOBIN 16.1 g/dl (12.0-16.0); LYMPHOCYTES # 0.7 10^3/ul (0.8-2.9); LYMPHOCYTES % 3.6 % (15.0-51.0); MEAN CORPUSCULAR HEMOGLOBIN 29.2 pg (29.0-33.0); MEAN CORPUSCULAR HGB CONC 32.4 g/dl (32.0-37.0); MEAN PLATELET VOLUME 10.9 fl (7.4-10.4); MONOCYTE # 1.1 10^3/ul (0.3-0.9); MONOCYTES % 5.7 % (0.0-11.0); NEUTROPHIL # 16.7 10^3/ul (1.6-7.5); NEUTROPHILS % 89.8 % (39.0-77.0); PLATELET COUNT 186 10^3/UL (140-415); RED BLOOD COUNT 5.52 10^6/ul (4.20-5.40); RED CELL DISTRIBUTION WIDTH 15.9 % (11.5-14.5); WHITE BLOOD COUNT 18.7 10^3/ul (4.8-10.8)
[2017-06-12] MEDS: LEVOTHYROXINE 100 MCG TAB PO SCH (06:05)
[2017-06-12 06:18] LABS: ALBUMIN 3.5 g/dl (3.3-4.9); ALBUMIN/GLOBULIN RATIO 1.2; BILIRUBIN,INDIRECT 0.8 mg/dl (0-1.1); BILIRUBIN,TOTAL 0.8 mg/dl (0.2-1.3); CREATININE 1.75 mg/dl (0.44-1.00); POTASSIUM 4.7 mmol/L (3.5-5.1); TOTAL PROTEIN 6.4 g/dl (6.1-8.1)
[2017-06-12 06:19] LABS: MAGNESIUM 2.5 mg/dl (1.7-2.5); PHOSPHORUS 4.1 mg/dl (2.5-4.9)
[2017-06-12] MEDS: ALBUTEROL 0.083% (NEB) 2.5 MG/3 ML AMP HHN SCH ×3 (07:46→20:00)
--- NOTE | 2017-06-12 08:39 | PN ---
Date/Time of Note Date/Time of Note DATE: 06/12/17 TIME: 08:33 Assessment/Plan VTE Prophylaxis VTE Prophylaxis Intervention: SCD's Lines/Catheters IV Catheter Type (from [facility]): Peripheral IV Urinary Cath still in place: No Assessment/Plan Chief Complaint/Hosp Course 1. Acute hypoxic respiratory failure. Most probably secondary to pleural effusion. Continue inhaled bronchodilators. Continue supplemental oxygen. Status post left-sided thoracentesis on 06/10/2017. 2. Left-sided pleural effusion. 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 Status post thoracentesis on 06/10/2017 with the drainage of 2 L of serous fluid. Fluid pathology pending. 3. Sepsis. Most probably secondary to left sided pneumonia with one positive blood culture. The patient has been started on antibiotics. Infectious diseases on the case. 4. Hypotension. Etiology unclear. Probably from underlying sepsis. S/P IV boluses. The patient was moved to ICU on 06/11/2017 for possible IV pressors. 5. Acute kidney injury. Nonoliguric. Unknown baseline creatinine. Will avoid nephrotoxic medications. Will involve nephrology on the case. 6. History of breast cancer. Status post left radical mastectomy. 7. Protein calorie malnutrition. Mild. Encourage dietary supplements. 8. Hypothyroidism. Continue Synthroid. 9. Fluids, electrolytes, and nutrition. Regular diet as tolerated. 10. DVT prophylaxis. Bilateral sequential compression devices. 11. Gastrointestinal prophylaxis. Proton pump inhibitors. 12. Plan. Continue supplemental oxygen. Continue inhaled bronchodilators. Await further recommendations from consultants. Case discussed with . Critical care time: 35 minutes. Problems: Subjective 24 Hr Interval Summary Free Text/Dictation Complains of back pain. Refusing breathing treatments. Exam/Review of Systems Vital Signs Vitals Vital Signs Date Time Temp Pulse Resp B/P Pulse Ox O2 Delivery O2 Flow Rate FiO2 06/12/17 06:00 24 119/92 94 Nasal Cannula 06/12/17 05:00 109 06/12/17 04:00 97.7 06/12/17 01:29 5.0 06/11/17 20:23 30 Intake and Output 06/11/17 06/11/17 06/12/17 15:00 23:00 07:00 Intake Total 500 ml 150 ml Output Total 0 ml 120 ml Balance 500 ml 30 ml Exam General: Thin, malnourished, frail looking 68 year-old male lying in bed in no apparent distress. HEENT: Normocephalic, atraumatic. Eyes: Anicteric sclerae, conjunctivae clear. ENT: Nasal septum midline, oral mucosa moist. Neck supple, no JVD noticed. Respiratory: Bilaterally diminished breath sounds. Use of accessory muscles of respiration. Cardiovascular: S1, S2 heard. No murmurs or gallops. Abdomen: Soft, nontender, and nondistended. Bowel sounds positive in all 4 quadrants. Genitourinary: Deferred. Extremities: No cyanosis, no clubbing. Bilateral lower extremity 2+ pitting edema. Pedal pulses diminished Neurologic: Cranial nerves II through XII grossly intact. The patient is awake an alert. Oriented 3. Psychology: Hostile affect. Results Result Diagram: 06/12/17 0500 06/12/17 0508 Results 24 hrs Laboratory Tests Test 06/11/17 17:30 06/12/17 05:00 06/12/17 05:08 Urine Color YELLOW Urine Clarity SLIGHTLY CLOUDY A Urine pH 5.0 Urine Specific [place] 1.019 Urine Ketones NEGATIVE Urine Nitrite NEGATIVE Urine Bilirubin NEGATIVE Urine Urobilinogen NEGATIVE Urine Leukocyte Esterase NEGATIVE Urine Microscopic RBC 0 Urine Microscopic WBC 7 H Urine Hyaline Casts FEW A Urine Mucus FEW A Urine Hemoglobin NEGATIVE Urine Glucose NEGATIVE Urine Total Protein NEGATIVE White Blood Count 18.7 H Red Blood Count 5.52 H Hemoglobin 16.1 H Hematocrit 49.7 H Mean Corpuscular Volume 90.0 Mean Corpuscular Hemoglobin 29.2 Mean Corpuscular Hemoglobin Concent 32.4 Red Cell Distribution Width 15.9 H Platelet Count 186 # Mean Platelet Volume 10.9 H Neutrophils % 89.8 H Lymphocytes % 3.6 L Monocytes % 5.7 Eosinophils % 0.0 Basophils % 0.1 Nucleated Red Blood Cells % 0.0 Neutrophils # 16.7 H Lymphocytes # 0.7 L Monocytes # 1.1 H Eosinophils # 0.0 Basophils # 0.0 Nucleated Red Blood Cells # 0.0 Sodium Level 143 Potassium Level 4.7 Chloride Level 106 Carbon Dioxide Level 20 L Anion Gap 22 H Blood Urea Nitrogen 67 H Creatinine 1.75 H Glucose Level 97 Calcium Level 9.0 Phosphorus Level 4.1 Magnesium Level 2.5 Total Bilirubin 0.8 Direct Bilirubin 0.00 Indirect Bilirubin 0.8 Aspartate Amino Transf (AST/SGOT) 49 H Alanine Aminotransferase (ALT/SGPT) 68 Alkaline Phosphatase 109 Total Protein 6.4 Albumin 3.5 Globulin 2.90 Albumin/Globulin Ratio 1.20 Medications Medications Current Medications Ondansetron HCl (Zofran Inj) 4 mg Q6H PRN IV NAUSEA AND/OR VOMITING; Start at 00:00 Acetaminophen (Tylenol Tab) 650 mg Q6H PRN PO PAIN LEVEL 1-3 OR FEVER; Start at 00:00 Morphine Sulfate (morphine) 1 mg Q4H PRN IV PAIN LEVEL 7-10 Last administered on 06/10/17 13:36; Admin Dose 1 MG; Start 06/10/17 at 00:00 Pantoprazole (Protonix Iv) 40 mg DAILY@06 IV Last administered on 06/12/17 05: 30; Admin Dose 40 MG; Start 06/10/17 at 06:00 Levothyroxine Sodium (Synthroid) 100 mcg DAILY@06 PO Last administered on 06:05; Admin Dose 100 MCG; Start 06/10/17 at 06:00 Multivitamins Therapeutic 1 tab 1 tab DAILY PO Last administered on 06/11/17 08:28; Admin Dose 1 TAB; Start 06/10/17 at 09:00 Vancomycin HCl/ Sodium Chloride (Vancocin/NS) 150 ml @ 75 mls/hr Q36H IVPB ; Start 06/12/17 at 13:00 Dimethicone 1 applic 1 applic Q2H PRN TOP dry lips. Last administered on 17:43; Admin Dose 1 APPLIC; Start 06/11/17 at 09:00 Cefepime HCl 50 ml @ 100 mls/hr Q24H IVPB Last administered on 06/11/17 13:58 ; Admin Dose 100 MLS/HR; Start 06/11/17 at 14:00 Norepinephrine/ Dextrose (Levophed/D5W) 500 ml @ 1.87 mls/hr TITRATE IV ; Start 06/11/17 at 20:00 TRAVIS SORIANO NP Jun 12, 2017 08:39
[2017-06-12] MEDS: morphine 2 MG INJ IV PRN ×2 (08:48→21:21)
[2017-06-12] MEDS: MULTIVITAMINS THERAPEUTIC TAB PO SCH (08:50)
--- NOTE | 2017-06-12 10:58 | CONS ---
Date/Time of Note Date/Time of Note DATE: 06/12/17 TIME: 10:53 Consult Date/Type/Reason Admit Date/Time Jun 10, 2017 at 00:01 Initial Consult Date 06/10/17 Type of Consultation: Pulmonary ICU Subjective Patient transferred to intensive care yesterday for low blood pressure. She remains awake alert and oriented this morning. Currently not requiring vasopressor support. She has significant agitation and anxiety when we make any attempts to discuss her medical condition. She is reluctant to discuss plan of care. Objective Vital Signs Date Time Temp Pulse Resp B/P Pulse Ox O2 Delivery O2 Flow Rate FiO2 06/12/17 10:00 110 22 86/69 96 Nasal Cannula 06/12/17 08:00 5.0 06/12/17 08:00 98.5 06/11/17 20:23 30 Intake and Output 06/11/17 06/11/17 06/12/17 15:00 23:00 07:00 Intake Total 500 ml 150 ml Output Total 0 ml 120 ml Balance 500 ml 30 ml Exam GENERAL: Thin elderly cachectic lady awake alert comfortable mild confusion. VITAL SIGNS: per chart NECK: Supple. No JVD or lymphadenopathy. CARDIAC EXAM: S1, S2. No added sounds or murmurs. CHEST: Diminished air entry left base ABDOMEN: Soft, nontender. No guarding or rebound. EXTREMITIES: No cyanosis, clubbing or edema. NEUROLOGIC: Generalized weakness. No focal deficits. Results/Medications Result Diagram: 06/12/17 0500 06/12/17 0508 Results 24 hrs Laboratory Tests Test 06/11/17 17:30 06/12/17 05:00 06/12/17 05:08 Urine Color YELLOW Urine Clarity SLIGHTLY CLOUDY A Urine pH 5.0 Urine Specific [place] 1.019 Urine Ketones NEGATIVE Urine Nitrite NEGATIVE Urine Bilirubin NEGATIVE Urine Urobilinogen NEGATIVE Urine Leukocyte Esterase NEGATIVE Urine Microscopic RBC 0 Urine Microscopic WBC 7 H Urine Hyaline Casts FEW A Urine Mucus FEW A Urine Hemoglobin NEGATIVE Urine Glucose NEGATIVE Urine Total Protein NEGATIVE White Blood Count 18.7 H Red Blood Count 5.52 H Hemoglobin 16.1 H Hematocrit 49.7 H Mean Corpuscular Volume 90.0 Mean Corpuscular Hemoglobin 29.2 Mean Corpuscular Hemoglobin Concent 32.4 Red Cell Distribution Width 15.9 H Platelet Count 186 # Mean Platelet Volume 10.9 H Neutrophils % 89.8 H Lymphocytes % 3.6 L Monocytes % 5.7 Eosinophils % 0.0 Basophils % 0.1 Nucleated Red Blood Cells % 0.0 Neutrophils # 16.7 H Lymphocytes # 0.7 L Monocytes # 1.1 H Eosinophils # 0.0 Basophils # 0.0 Nucleated Red Blood Cells # 0.0 Sodium Level 143 Potassium Level 4.7 Chloride Level 106 Carbon Dioxide Level 20 L Anion Gap 22 H Blood Urea Nitrogen 67 H Creatinine 1.75 H Glucose Level 97 Calcium Level 9.0 Phosphorus Level 4.1 Magnesium Level 2.5 Total Bilirubin 0.8 Direct Bilirubin 0.00 Indirect Bilirubin 0.8 Aspartate Amino Transf (AST/SGOT) 49 H Alanine Aminotransferase (ALT/SGPT) 68 Alkaline Phosphatase 109 Total Protein 6.4 Albumin 3.5 Globulin 2.90 Albumin/Globulin Ratio 1.20 Medications Current Medications Ondansetron HCl (Zofran Inj) 4 mg Q6H PRN IV NAUSEA AND/OR VOMITING; Start at 00:00 Acetaminophen (Tylenol Tab) 650 mg Q6H PRN PO PAIN LEVEL 1-3 OR FEVER; Start at 00:00 Morphine Sulfate (morphine) 1 mg Q4H PRN IV PAIN LEVEL 7-10 Last administered on 06/12/17 08:48; Admin Dose 1 MG; Start 06/10/17 at 00:00 Pantoprazole (Protonix Iv) 40 mg DAILY@06 IV Last administered on 06/12/17 05: 30; Admin Dose 40 MG; Start 06/10/17 at 06:00 Levothyroxine Sodium (Synthroid) 100 mcg DAILY@06 PO Last administered on 06:05; Admin Dose 100 MCG; Start 06/10/17 at 06:00 Multivitamins Therapeutic 1 tab 1 tab DAILY PO Last administered on 06/12/17 08:50; Admin Dose 1 TAB; Start 06/10/17 at 09:00 Vancomycin HCl/ Sodium Chloride (Vancocin/NS) 150 ml @ 75 mls/hr Q36H IVPB ; Start 06/12/17 at 13:00 Dimethicone 1 applic 1 applic Q2H PRN TOP dry lips. Last administered on 17:43; Admin Dose 1 APPLIC; Start 06/11/17 at 09:00 Cefepime HCl 50 ml @ 100 mls/hr Q24H IVPB Last administered on 06/11/17t 13:58 ; Admin Dose 100 MLS/HR; Start 06/11/17 at 14:00 Norepinephrine/ Dextrose (Levophed/D5W) 500 ml @ 1.87 mls/hr TITRATE IV ; Start 06/11/17 at 20:00 Assessment/Plan Chief Complaint/Hosp Course Assessment 1. Acute hypoxemic respiratory failure likely secondary to pleural effusion 2. Pleural effusion likely malignant given history of breast cancer, status post thoracentesis 2 L still with significant fluid in the pleural space. 3. Weight loss and cachexia concerning for progressive metastatic disease 4. Hypotension possibly underlying sepsis and/or adrenal insufficiency. Plan 1. Elevated pleural fluid protein concerning for malignancy. 2. May require chest tube or Pleurx catheter will attempt repeat thoracentesis. 3. Consider hematology oncology evaluation, hospice eval, psychiatry eval to address competency. 4. Transfer to telemetry when stable. 5. DVT and GI prophylaxis cc40 mins Problems: LILLY MOODY MD, [facility] Jun 12, 2017 10:57
--- NOTE | 2017-06-12 12:10 | CONS ---
Date/Time of Note Date/Time of Note DATE: 06/12/17 TIME: 12:00 Assessment/Plan Assessment/Plan Chief Complaint/Hosp Course 1. Acute kidney injury. possibly some baseline ckd. acute component may be vasomotor vs atn from sepsis. hasn't corrected yet. start by checking urine studies. ct abdomen done already and unrevealing. will try to obtain old records. avoid nephrotoxins. all meds dosed ok. treat underlying. 2. Left-sided pleural effusion. 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 Status post thoracentesis on 06/10/2017 with the drainage of 2 L of serous fluid. Fluid pathology pending. 3. Sepsis. Most probably secondary to left sided pneumonia with one positive blood culture. The patient has been started on antibiotics. Infectious diseases on the case. 4. Hypotension. Etiology unclear. Probably from underlying sepsis. S/P IV boluses. The patient was moved to ICU on 06/11/2017 for possible IV pressors. 5. Acute hypoxic respiratory failure. Most probably secondary to pleural effusion. Continue inhaled bronchodilators. Continue supplemental oxygen. Status post left-sided thoracentesis on 06/10/2017. 6. History of breast cancer. Status post left radical mastectomy. 7. Protein calorie malnutrition. Mild. Encourage dietary supplements. 8. Hypothyroidism. Continue Synthroid. 9. Fluids, electrolytes, and nutrition. Regular diet as tolerated. 10. DVT prophylaxis. Bilateral sequential compression devices. 11. Gastrointestinal prophylaxis. Proton pump inhibitors. 12. Plan. Continue supplemental oxygen. Continue inhaled bronchodilators. Await further recommendations from consultants. Problems: Consultation Date/Type/Reason Admit Date/Time Jun 10, 2017 at 00:01 Type of Consultation: nephrology Hx of Present Illness 76-year-old lady with a history of left breast cancer status post mastectomy. Here for evaluation of shortness of breath which she states has been progressive over the past few weeks. Associated with orthopnea and PND. On admission she was found to have significant extensive large left pleural effusion with mediastinal shift. She denies any gross hematuria no frequency urgency or dysuria. She denies a headache. She indicates she has a remote history of breast carcinoma that was treated with oral chemotherapy agents but cannot remember the name of her oncologist or when she took this medication. She denies any fever chills chest pain or palpitations. She has had worsening appetite over the past few months with significant weight loss which she is unable to quantify. She is currently a non-smoker denies any significant alcohol intake. Admitted with Cr. of 1.7. denies history of kidney disease, frequent uti, or kidney stones. Previous labs from 2013 were normal. denies problems with urination. Initial Consultation Hx Past Medical History Breast cancer with left mastectomy radiation Past Surgical History Left mastectomy 1997 Social History Alcohol Use: none Smoking Status: Never smoker Drug Use: none Exam GENERAL: Thin cachectic elderly lady comfortable at rest talking full complete sentencest NECK: Supple. No JVD or lymphadenopathy. CARDIAC EXAM: S1, S2. No added sounds or murmurs. CHEST: diminished air entry left lung ABDOMEN: Soft, nontender. No guarding or rebound. EXTREMITIES: No cyanosis, clubbing or edema. NEUROLOGIC: Generalized weakness. No focal deficits. Eyes : No pain discharge or redness or change in visual acuity ENT: No pain, sore throat, congestion, congestion, dysphagia or discharge Respiratory: As per HPI Cardiovascular: No chest pain, palpitation, PND, or edema GI : no change in appetite, abdominal pain, nausea, vomiting, diarrhea, constipation, or change in the color his stool Genitourinary: No dysuria, hematuria, flank pain , discharge or CVA tenderness Musculoskeletal: As per HPI Skin: No rash, bruising or hives Neuro: No headache, dizziness, syncope, seizure, focal weakness Endocrine: No polyuria, polydipsia, temperature intolerance Psych: No hallucination, depression, anxiety or suicidal ideation Social History Alcohol Use: none Smoking Status: Never smoker Drug Use: none Exam/Review of Systems Vital Signs Vitals Vital Signs Date Time Temp Pulse Resp B/P Pulse Ox O2 Delivery O2 Flow Rate FiO2 06/12/17 10:00 110 22 86/69 96 Nasal Cannula 06/12/17 08:00 5.0 06/12/17 08:00 98.5 06/11/17 20:23 30 Intake and Output 06/11/17 06/11/17 06/12/17 15:00 23:00 07:00 Intake Total 500 ml 150 ml Output Total 0 ml 120 ml Balance 500 ml 30 ml Results Result Diagram: 06/12/17 0500 06/12/17 0508 Results 24 hrs Laboratory Tests Test 06/11/17 17:30 06/12/17 05:00 06/12/17 05:08 Urine Color YELLOW Urine Clarity SLIGHTLY CLOUDY A Urine pH 5.0 Urine Specific [place] 1.019 Urine Ketones NEGATIVE Urine Nitrite NEGATIVE Urine Bilirubin NEGATIVE Urine Urobilinogen NEGATIVE Urine Leukocyte Esterase NEGATIVE Urine Microscopic RBC 0 Urine Microscopic WBC 7 H Urine Hyaline Casts FEW A Urine Mucus FEW A Urine Hemoglobin NEGATIVE Urine Glucose NEGATIVE Urine Total Protein NEGATIVE White Blood Count 18.7 H Red Blood Count 5.52 H Hemoglobin 16.1 H Hematocrit 49.7 H Mean Corpuscular Volume 90.0 Mean Corpuscular Hemoglobin 29.2 Mean Corpuscular Hemoglobin Concent 32.4 Red Cell Distribution Width 15.9 H Platelet Count 186 # Mean Platelet Volume 10.9 H Neutrophils % 89.8 H Lymphocytes % 3.6 L Monocytes % 5.7 Eosinophils % 0.0 Basophils % 0.1 Nucleated Red Blood Cells % 0.0 Neutrophils # 16.7 H Lymphocytes # 0.7 L Monocytes # 1.1 H Eosinophils # 0.0 Basophils # 0.0 Nucleated Red Blood Cells # 0.0 Sodium Level 143 Potassium Level 4.7 Chloride Level 106 Carbon Dioxide Level 20 L Anion Gap 22 H Blood Urea Nitrogen 67 H Creatinine 1.75 H Glucose Level 97 Calcium Level 9.0 Phosphorus Level 4.1 Magnesium Level 2.5 Total Bilirubin 0.8 Direct Bilirubin 0.00 Indirect Bilirubin 0.8 Aspartate Amino Transf (AST/SGOT) 49 H Alanine Aminotransferase (ALT/SGPT) 68 Alkaline Phosphatase 109 Total Protein 6.4 Albumin 3.5 Globulin 2.90 Albumin/Globulin Ratio 1.20 Medications Medications Current Medications Ondansetron HCl (Zofran Inj) 4 mg Q6H PRN IV NAUSEA AND/OR VOMITING; Start at 00:00 Acetaminophen (Tylenol Tab) 650 mg Q6H PRN PO PAIN LEVEL 1-3 OR FEVER; Start at 00:00 Morphine Sulfate (morphine) 1 mg Q4H PRN IV PAIN LEVEL 7-10 Last administered on 06/12/17 08:48; Admin Dose 1 MG; Start 06/10/17 at 00:00 Pantoprazole (Protonix Iv) 40 mg DAILY@06 IV Last administered on 06/12/17 05: 30; Admin Dose 40 MG; Start 06/10/17 at 06:00 Levothyroxine Sodium (Synthroid) 100 mcg DAILY@06 PO Last administered on 06:05; Admin Dose 100 MCG; Start 06/10/17 at 06:00 Multivitamins Therapeutic 1 tab 1 tab DAILY PO Last administered on 06/12/17 08:50; Admin Dose 1 TAB; Start 06/10/17 at 09:00 Vancomycin HCl/ Sodium Chloride (Vancocin/NS) 150 ml @ 75 mls/hr Q36H IVPB ; Start 06/12/17 at 13:00 Dimethicone 1 applic 1 applic Q2H PRN TOP dry lips. Last administered on 17:43; Admin Dose 1 APPLIC; Start 06/11/17 at 09:00 Cefepime HCl 50 ml @ 100 mls/hr Q24H IVPB Last administered on 06/11/17 13:58 ; Admin Dose 100 MLS/HR; Start 06/11/17 at 14:00 Norepinephrine/ Dextrose (Levophed/D5W) 500 ml @ 1.87 mls/hr TITRATE IV ; Start 06/11/17 at 20:00 TOMMY SÁNCHEZ MD Jun 12, 2017 12:10
[2017-06-12] MEDS: CEFEPIME 1GM/50 ML (PMX) 50 ML IVPB SCH (13:20)
--- NOTE | 2017-06-12 16:22 | CONS ---
Date/Time of Note Date/Time of Note DATE: 06/12/17 TIME: 15:50 Assessment/Plan Assessment/Plan Chief Complaint/Hosp Course ID PROGRESS NOTE TOTAL ABX DAY #2 => Vanco IV + Cefepime * Frail confused 76 yo F w/intermittent anxiety/agitation => Patient transferred to the ICU yesterday for hypotension * s/p THORA 06/10 * 06/11/17 CXR IMPRESSION: RLL ATX vs PNA - Worse appearance of the lungs and larger left pleural effusion. * MICRO: (+)Blood Cx 2/2 bottles from ED BLOOD CULTURE Preliminary BCULT GRAM BOTTLE 1 seen on gram stain of the broth BCULT GRAM BOTTLE 2 Gram positive cocci in pairs and clusters . seen on gram stain of the broth Organism 1 STAPHYLOCOCCUS AUREUS Organism 2 GRAM POSITIVE COCCI IN CHAIN S AUREUS M.I.C. RX --------- --- CEFAZOLIN S CIPROFLOXACIN <=0.5 S CLINDAMYCIN <=0.25 S DOXYCYCLINE S ERYTHROMYCIN 0.5 S LEVOFLOXACIN <=0.12 S OXACILLIN 0.5 S PENICILLIN-G >=0.5 R RIFAMPIN <=0.5 S VANCOMYCIN <=0.5 S TRIMETHOPRIM/SULFAMETHOXAZOLE <=10 S Exam GENERAL: Thin elderly cachectic lady awake alert comfortable mild confusion. VITAL SIGNS: per chart NECK: Supple. No JVD or lymphadenopathy. CARDIAC EXAM: S1, S2. No added sounds or murmurs. CHEST: Diminished air entry left base ABDOMEN: Soft, nontender. No guarding or rebound. EXTREMITIES: No cyanosis, clubbing or edema. NEUROLOGIC: Generalized weakness. No focal deficits. ID ASSESSMENT 76 yo F admit with: 1. Acute hypoxic respiratory failure and large left pleural effusion * Status post left-sided thoracentesis on 06/10/2017. 2. Left-sided pleural effusion. 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 Status post thoracentesis on 06/10/2017 with the drainage of 2 L of serous fluid. Fluid pathology pending. 3. Sepsis w/SHOCK =>(+)encephalopathy, hypotension, leukocytosis, elevated S.Creatinine, tachycardia, acute tachypnea on admission => Suspect superimposed PNA * Blood Cx on admission (+) 2/2 bottles * Organism 1 STAPHYLOCOCCUS AUREUS * Organism 2 GRAM POSITIVE COCCI IN CHAIN 4. PNA per CXR 06/11/17 IMPRESSION: RLL ATX vs PNA - Worse appearance of the lungs and larger left pleural effusion. 5. Acute kidney injury. Nonoliguric. Unknown baseline creatinine. 6. History of breast cancer. Status post left radical mastectomy. 7. Protein calorie malnutrition 8. Hypothyroidism - on Synthroid. 9. Encephalopathy = patient is confused w/anxiety/agitative features intermittently - likely toxic metabolic on possible underlying organic brain syndrome ? MRSA Nares->Pending INVASIVES: PIV ABX ALLERGIES: PCN, SULFA CURRENT ABX: Vanco IV #3+ Cefepime #3 + Levaquin 250 IV #1 ID RECOMMENDATIONS 1. Repeat BCx, if positive consider 2D ECHO 2. Continue current ABX + low dose Levaquin IV while septic => renal dose and avoid nephrotoxic medications 3. Follow pathology report from [facility] = pending . Problems: Consultation Date/Type/Reason Admit Date/Time Jun 10, 2017 at 00:01 Initial Consult Date 06/10/17 Type of Consultation: ID Exam/Review of Systems Vital Signs Vitals Vital Signs Date Time Temp Pulse Resp B/P Pulse Ox O2 Delivery O2 Flow Rate FiO2 06/12/17 12:00 98.1 97 20 117/54 94 Nasal Cannula 06/12/17 08:00 5.0 06/11/17 20:23 30 Intake and Output 06/11/17 06/11/17 06/12/17 15:00 23:00 07:00 Intake Total 500 ml 150 ml Output Total 0 ml 120 ml Balance 500 ml 30 ml Results Result Diagram: 06/12/17 0500 06/12/17 0508 Results 24 hrs Laboratory Tests Test 06/11/17 17:30 06/12/17 05:00 06/12/17 05:08 Urine Color YELLOW Urine Clarity SLIGHTLY CLOUDY A Urine pH 5.0 Urine Specific [place] 1.019 Urine Ketones NEGATIVE Urine Nitrite NEGATIVE Urine Bilirubin NEGATIVE Urine Urobilinogen NEGATIVE Urine Leukocyte Esterase NEGATIVE Urine Microscopic RBC 0 Urine Microscopic WBC 7 H Urine Hyaline Casts FEW A Urine Mucus FEW A Urine Hemoglobin NEGATIVE Urine Glucose NEGATIVE Urine Total Protein NEGATIVE White Blood Count 18.7 H Red Blood Count 5.52 H Hemoglobin 16.1 H Hematocrit 49.7 H Mean Corpuscular Volume 90.0 Mean Corpuscular Hemoglobin 29.2 Mean Corpuscular Hemoglobin Concent 32.4 Red Cell Distribution Width 15.9 H Platelet Count 186 # Mean Platelet Volume 10.9 H Neutrophils % 89.8 H Lymphocytes % 3.6 L Monocytes % 5.7 Eosinophils % 0.0 Basophils % 0.1 Nucleated Red Blood Cells % 0.0 Neutrophils # 16.7 H Lymphocytes # 0.7 L Monocytes # 1.1 H Eosinophils # 0.0 Basophils # 0.0 Nucleated Red Blood Cells # 0.0 Sodium Level 143 Potassium Level 4.7 Chloride Level 106 Carbon Dioxide Level 20 L Anion Gap 22 H Blood Urea Nitrogen 67 H Creatinine 1.75 H Glucose Level 97 Calcium Level 9.0 Phosphorus Level 4.1 Magnesium Level 2.5 Total Bilirubin 0.8 Direct Bilirubin 0.00 Indirect Bilirubin 0.8 Aspartate Amino Transf (AST/SGOT) 49 H Alanine Aminotransferase (ALT/SGPT) 68 Alkaline Phosphatase 109 Total Protein 6.4 Albumin 3.5 Globulin 2.90 Albumin/Globulin Ratio 1.20 Medications Medications Current Medications Ondansetron HCl (Zofran Inj) 4 mg Q6H PRN IV NAUSEA AND/OR VOMITING; Start at 00:00 Acetaminophen (Tylenol Tab) 650 mg Q6H PRN PO PAIN LEVEL 1-3 OR FEVER; Start at 00:00 Morphine Sulfate (morphine) 1 mg Q4H PRN IV PAIN LEVEL 7-10 Last administered on 06/12/17 08:48; Admin Dose 1 MG; Start 06/10/17 at 00:00 Pantoprazole (Protonix Iv) 40 mg DAILY@06 IV Last administered on 06/12/17 05: 30; Admin Dose 40 MG; Start 06/10/17 at 06:00 Levothyroxine Sodium (Synthroid) 100 mcg DAILY@06 PO Last administered on 06:05; Admin Dose 100 MCG; Start 06/10/17 at 06:00 Multivitamins Therapeutic 1 tab 1 tab DAILY PO Last administered on 06/12/17 08:50; Admin Dose 1 TAB; Start 06/10/17 at 09:00 Vancomycin HCl/ Sodium Chloride (Vancocin/NS) 150 ml @ 75 mls/hr Q36H IVPB ; Start 06/12/17 at 13:00 Dimethicone 1 applic 1 applic Q2H PRN TOP dry lips. Last administered on 17:43; Admin Dose 1 APPLIC; Start 06/11/17 at 09:00 Cefepime HCl 50 ml @ 100 mls/hr Q24H IVPB Last administered on 06/12/17 13:20 ; Admin Dose 100 MLS/HR; Start 06/11/17 at 14:00 Norepinephrine/ Dextrose (Levophed/D5W) 500 ml @ 1.87 mls/hr TITRATE IV ; Start 06/11/17 at 20:00 ANTHONY GALVEZ NP Jun 12, 2017 16:00
[2017-06-12] MEDS: VANCOMYCIN 750 MG in SOD CHLORIDE 0.9% 150 ML IVPB SCH (16:34)
[2017-06-12] MEDS: LEVOFLOXACIN 250MG/D5W (PMX) 50 ML IVPB SCH (17:00)
[2017-06-13] VITALS (20 sets, daily range): BP systolic 80–125; BP diastolic 57–106; PULSE 95–115; RESP 13–27
[2017-06-13] MEDS: morphine 2 MG INJ IV PRN (04:34)
[2017-06-13] MEDS: PANTOPRAZOLE 40 MG INJ IV SCH (05:56)
[2017-06-13] MEDS: LEVOTHYROXINE 100 MCG TAB PO SCH (05:56)
--- NOTE | 2017-06-13 08:13 | PN ---
Date/Time of Note Date/Time of Note DATE: 06/13/17 TIME: 08:10 Assessment/Plan VTE Prophylaxis VTE Prophylaxis Intervention: other Lines/Catheters IV C[facility]ter Type (from [facility]): Peripheral IV Urinary Cath still in place: No Assessment/Plan Chief Complaint/Hosp Course 1. Nonoliguric acute kidney injury with unknown baseline creatinine, possible CKD -Etiology is likely hemodynamics, Kylee less than 1% consistent with prerenal etiology -Patient status post IV fluids -Renal function has been fluctuating. -Urinalysis no active sediment -Continue current treatment plan supportive care renally dose meds avoid nephrotoxins, consider IV fluids 2. Anemia -Monitor H&H levels 3. Mineral bone disorder monitor calcium phosphorus levels - 4. . Left-sided pleural effusion. 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 Status post thoracentesis on 06/10/2017 with the drainage of 2 L of serous fluid. Fluid pathology pending. 5. Sepsis. Most probably secondary to left sided pneumonia with one positive blood culture. The patient has been started on antibiotics. Infectious diseases on the case. 5. Acute hypoxic respiratory failure. Most probably secondary to pleural effusion. Continue inhaled bronchodilators. Continue supplemental oxygen. Status post left-sided thoracentesis on 06/10/2017. 6. History of breast cancer. Status post left radical mastectomy. 7. Protein calorie malnutrition. Mild. Encourage dietary supplements. 8. Hypothyroidism. Continue Synthroid. Problems: Subjective 24 Hr Interval Summary Free Text/Dictation Patient seen and examined No acute events overnight patient's pending thoracentesis Exam/Review of Systems Vital Signs Vitals Vital Signs Date Time Temp Pulse Resp B/P Pulse Ox O2 Delivery O2 Flow Rate FiO2 06/13/17 06:00 115 18 95 Nasal Cannula 5.0 06/13/17 04:00 97.7 06/11/17 20:23 30 Intake and Output 06/12/17 06/12/17 06/13/17 15:00 23:00 07:00 Intake Total 600 ml 540 ml 20 ml Output Total 100 ml 500 ml 100 ml Balance 500 ml 40 ml -80 ml Exam GENERAL: Thin cachectic elderly lady comfortable at rest talking full complete sentencest NECK: Supple. No JVD or lymphadenopathy. CARDIAC EXAM: S1, S2. No added sounds or murmurs. CHEST: diminished air entry left lung ABDOMEN: Soft, nontender. No guarding or rebound. EXTREMITIES: No cyanosis, clubbing or edema. NEUROLOGIC: Generalized weakness. No focal deficits. Eyes : No pain discharge or redness or change in visual acuity ENT: No pain, sore throat, congestion, congestion, dysphagia or discharge Respiratory: As per HPI Cardiovascular: No chest pain, palpitation, PND, or edema GI : no change in appetite, abdominal pain, nausea, vomiting, diarrhea, constipation, or change in the color his stool Genitourinary: No dysuria, hematuria, flank pain , discharge or CVA tenderness Musculoskeletal: As per HPI Skin: No rash, bruising or hives Neuro: No headache, dizziness, syncope, seizure, focal weakness Endocrine: No polyuria, polydipsia, temperature intolerance Psych: No hallucination, depression, anxiety or suicidal ideation Results Result Diagram: 06/12/17 0500 06/12/17 0508 Results 24 hrs Laboratory Tests Test 06/12/17 20:00 Urine Eosinophils % 0.0 Urine Random Creatinine 116.17 Urine Random Sodium < 13 L Urine Total Protein 16.0 H Medications Medications Current Medications Ondansetron HCl (Zofran Inj) 4 mg Q6H PRN IV NAUSEA AND/OR VOMITING; Start at 00:00 Acetaminophen (Tylenol Tab) 650 mg Q6H PRN PO PAIN LEVEL 1-3 OR FEVER; Start at 00:00 Morphine Sulfate (morphine) 1 mg Q4H PRN IV PAIN LEVEL 7-10 Last administered on 06/13/17 04:34; Admin Dose 1 MG; Start 06/10/17 at 00:00 Pantoprazole (Protonix Iv) 40 mg DAILY@06 IV Last administered on 06/13/17 05: 56; Admin Dose 40 MG; Start 06/10/17 at 06:00 Levothyroxine Sodium (Synthroid) 100 mcg DAILY@06 PO Last administered on 05:56; Admin Dose 100 MCG; Start 06/10/17 at 06:00 Multivitamins Therapeutic 1 tab 1 tab DAILY PO Last administered on 06/12/17 08:50; Admin Dose 1 TAB; Start 06/10/17 at 09:00 Vancomycin HCl/ Sodium Chloride (Vancocin/NS) 150 ml @ 75 mls/hr Q36H IVPB Last administered on 06/12/17 16:34; Admin Dose 75 MLS/HR; Start 06/12/17 at 13 :00 Dimethicone 1 applic 1 applic Q2H PRN TOP dry lips. Last administered on 17:43; Admin Dose 1 APPLIC; Start 06/11/17 at 09:00 Cefepime HCl 50 ml @ 100 mls/hr Q24H IVPB Last administered on 06/12/17 13:20 ; Admin Dose 100 MLS/HR; Start 06/11/17 at 14:00 Norepinephrine 16 mg/Dextrose 500 ml @ 1.87 mls/hr TITRATE IV ; Start 06/11/17 at 20:00 Levofloxacin/ Dextrose (Levaquin 250 Mg/ D5W 50 ml (Pmx)) 50 ml @ 50 mls/hr Q48H IVPB Last administered on 06/12/17 17:00; Admin Dose 50 MLS/HR; Start at 17:00 MARCELLO COLLINS DO Jun 13, 2017 08:13
[2017-06-13] MEDS: ALBUTEROL 0.083% (NEB) 2.5 MG/3 ML AMP HHN SCH ×3 (09:14→20:13)
--- NOTE | 2017-06-13 09:47 | CONS ---
Date/Time of Note Date/Time of Note DATE: 06/13/17 TIME: 09:38 Assessment/Plan Assessment/Plan Additional Assessment/Plan I have had an extensive conversation with Mrs. Soler today who has made very clear she does not want to live on life support, including having cardiopulmonary resuscitation and artificial ventilation she is absolutely against that level of treatment. She has expressed to us that she has an advanced directive that is to be brought to the hospital. She has designated a friend as her agent, and states to us that her son is not cognitively able to make decisions on her behalf. From a palliative care standpoint issues that have been addressed are she is the only person who makes decisions on her own behalf at this time we have reviewed her background medical issue she is clear understanding of her underlying medical prop we have discussed her quality of life which be improvement without artificial aggressive care spheres concerns have been addressed she is a very strong individual with a strong and aggressive personality there are no cultural issues to be addressed, once again she is cognitively intact goals of care have been addressed and she wants to change her CODE STATUS to DO NOT RESUSCITATE at this time is no indication to discuss her long-term prognosis. There are no pain or symptom management issues at this time but we have assured her that we will address those in the event that she has a sudden change in her overall physical condition once again code has been changed to DO NOT RESUSCITATE in the event that she has a favorable outcome during his hospitalization we will addressed a POLST form. Consultation Date/Type/Reason Admit Date/Time Jun 10, 2017 at 00:01 Date of Consultation: Jun 13, 2017 Reason for Consultation 76-year-old female very pleasant who is in the intensive care unit [facility] was admitted here on 714 2 on 06/10/2017 who presents complaining of flank left flank discomfort this is a palliative care consultation not not a pain management consultation for this lady who is currently ill but stable in the ICU she can make all decisions on her own behalf , she is cognitively intact she has an extensive workup while here however was transferred to the intensive care unit with increasing shortness of breath was found to have large left pleural effusion which apparently in the past has been recurrent etiology still being worked up some suggestion of a lung mass on work she has been aggressively treated with IV antibiotic coverage has been seen by nephrology, ID, pulmonary medicine thoracentesis has been repeated and cytology is pending. 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, nl mental status, nl speech, nl strength Results Result Diagram: 06/12/17 0500 06/12/17 0508 Results 24 hrs Laboratory Tests Test 06/12/17 20:00 Urine Eosinophils % 0.0 Urine Random Creatinine 116.17 Urine Random Sodium < 13 L Urine Total Protein 16.0 H Medications Medications Current Medications Ondansetron HCl (Zofran Inj) 4 mg Q6H PRN IV NAUSEA AND/OR VOMITING; Start at 00:00 Acetaminophen (Tylenol Tab) 650 mg Q6H PRN PO PAIN LEVEL 1-3 OR FEVER; Start at 00:00 Morphine Sulfate (morphine) 1 mg Q4H PRN IV PAIN LEVEL 7-10 Last administered on 06/13/17 04:34; Admin Dose 1 MG; Start 06/10/17 at 00:00 Pantoprazole (Protonix Iv) 40 mg DAILY@06 IV Last administered on 06/13/17 05: 56; Admin Dose 40 MG; Start 06/10/17 at 06:00 Levothyroxine Sodium (Synthroid) 100 mcg DAILY@06 PO Last administered on 05:56; Admin Dose 100 MCG; Start 06/10/17 at 06:00 Multivitamins Therapeutic 1 tab 1 tab DAILY PO Last administered on 06/12/17 08:50; Admin Dose 1 TAB; Start 06/10/17 at 09:00 Vancomycin HCl/ Sodium Chloride (Vancocin/NS) 150 ml @ 75 mls/hr Q36H IVPB Last administered on 06/12/17 16:34; Admin Dose 75 MLS/HR; Start 06/12/17 at 13 :00 Dimethicone 1 applic 1 applic Q2H PRN TOP dry lips. Last administered on 17:43; Admin Dose 1 APPLIC; Start 06/11/17 at 09:00 Cefepime HCl 50 ml @ 100 mls/hr Q24H IVPB Last administered on 06/12/17 13:20 ; Admin Dose 100 MLS/HR; Start 06/11/17 at 14:00 Norepinephrine 16 mg/Dextrose 500 ml @ 1.87 mls/hr TITRATE IV ; Start 06/11/17 at 20:00 Levofloxacin/ Dextrose (Levaquin 250 Mg/ D5W 50 ml (Pmx)) 50 ml @ 50 mls/hr Q48H IVPB Last administered on 06/12/17 17:00; Admin Dose 50 MLS/HR; Start at 17:00 NATHALY HIGHTOWER Jun 13, 2017 09:47
[2017-06-13] MEDS ORDERED: LIDOCAINE 1% (MPF) 5 ML VIAL ONE (10:40)
[2017-06-13] MEDS: MULTIVITAMINS THERAPEUTIC TAB PO SCH (11:33)
--- NOTE | 2017-06-13 12:07 | CONS ---
Date/Time of Note Date/Time of Note DATE: 06/13/17 TIME: 12:06 Assessment/Plan Assessment/Plan Chief Complaint/Hosp Course No acute changes overnight. Patient is alert, looks comfortable. Denies pain. Temperature 97.7 pulse 97 respirations 14 blood pressure 89/64 saturation 95 on 5 L. Microbiology: Blood cultures on admission grew staph aureus and alpha hemolytic strep species Antibiotics: Vancomycin and Levaquin Allergies: Penicillins, sulfa Physical examination: This is a cachectic chronically ill-appearing elderly woman who is awake in no distress. Head atraumatic normocephalic nonicteric mucosa dry. Neck is supple. Chest rise symmetrical, breath sounds diminished basis. Heart S1-S2 abdomen soft bowel tones but equal bilateral edema skin multiple ecchymotic areas, patient has a left chest birthmark Assessment: 1. Sepsis with shock, patient is off Levophed drip 2. Acute polymicrobial bacteremia 3. Acute hypoxemic respiratory failure 4. Large left pleural effusion likely malignant, status post thoracentesis on June 10, 2017 5. History of breast cancer status post left mastectomy 6. Cachexia 7. DNR status Plan: Stable off pressors, on appropriate antibiotics, followed by multiple consultants, will repeat blood cultures, continue antibiotics. Discussed with patient and RN Problems: Consultation Date/Type/Reason Admit Date/Time Jun 10, 2017 at 00:01 Initial Consult Date 06/13/17 Type of Consultation: ID Exam/Review of Systems Vital Signs Vitals Vital Signs Date Time Temp Pulse Resp B/P Pulse Ox O2 Delivery O2 Flow Rate FiO2 06/13/17 11:00 109 24 110/80 95 Nasal Cannula 5.0 06/13/17 08:00 97.7 06/11/17 20:23 30 Intake and Output 06/12/17 06/12/17 06/13/17 15:00 23:00 07:00 Intake Total 600 ml 540 ml 20 ml Output Total 100 ml 500 ml 100 ml Balance 500 ml 40 ml -80 ml Results Result Diagram: 06/12/17 0500 06/12/17 0508 Results 24 hrs Laboratory Tests Test 06/12/17 20:00 Urine Eosinophils % 0.0 Urine Random Creatinine 116.17 Urine Random Sodium < 13 L Urine Total Protein 16.0 H Medications Medications Current Medications Ondansetron HCl (Zofran Inj) 4 mg Q6H PRN IV NAUSEA AND/OR VOMITING; Start at 00:00 Acetaminophen (Tylenol Tab) 650 mg Q6H PRN PO PAIN LEVEL 1-3 OR FEVER; Start at 00:00 Morphine Sulfate (morphine) 1 mg Q4H PRN IV PAIN LEVEL 7-10 Last administered on 06/13/17 04:34; Admin Dose 1 MG; Start 06/10/17 at 00:00 Pantoprazole (Protonix Iv) 40 mg DAILY@06 IV Last administered on 06/13/17 05: 56; Admin Dose 40 MG; Start 06/10/17 at 06:00 Levothyroxine Sodium (Synthroid) 100 mcg DAILY@06 PO Last administered on 05:56; Admin Dose 100 MCG; Start 06/10/17 at 06:00 Multivitamins Therapeutic 1 tab 1 tab DAILY PO Last administered on 06/13/17 11:33; Admin Dose 1 TAB; Start 06/10/17 at 09:00 Vancomycin HCl/ Sodium Chloride (Vancocin/NS) 150 ml @ 75 mls/hr Q36H IVPB Last administered on 06/12/17 16:34; Admin Dose 75 MLS/HR; Start 06/12/17 at 13 :00 Dimethicone 1 applic 1 applic Q2H PRN TOP dry lips. Last administered on 17:43; Admin Dose 1 APPLIC; Start 06/11/17 at 09:00 Cefepime HCl 50 ml @ 100 mls/hr Q24H IVPB Last administered on 06/12/17 13:20 ; Admin Dose 100 MLS/HR; Start 06/11/17 at 14:00 Norepinephrine 16 mg/Dextrose 500 ml @ 1.87 mls/hr TITRATE IV ; Start 06/11/17 at 20:00 Levofloxacin/ Dextrose (Levaquin 250 Mg/ D5W 50 ml (Pmx)) 50 ml @ 50 mls/hr Q48H IVPB Last administered on 06/12/17 17:00; Admin Dose 50 MLS/HR; Start at 17:00 SWAPNA CRYSTAL NP Jun 13, 2017 12:07
[2017-06-13 12:37] LABS: FLD CLARITY HAZY
[2017-06-13 12:38] LABS: FLD COLOR YELLOW; FLD WBC 319 /cmm; FLUID RBC EST 1+
[2017-06-13 12:43] LABS: ADD SCAN DIFF NO
[2017-06-13 12:46] LABS: ABNORMAL IP MESSAGE 1; BASOPHILS % 0.1 % (0.0-2.0); HEMATOCRIT 49.2 % (37.0-47.0); HEMOGLOBIN 16.5 g/dl (12.0-16.0); LYMPHOCYTES # 0.4 10^3/ul (0.8-2.9); LYMPHOCYTES % 2.7 % (15.0-51.0); MEAN CORPUSCULAR HEMOGLOBIN 30.3 pg (29.0-33.0); MEAN CORPUSCULAR HGB CONC 33.5 g/dl (32.0-37.0); MEAN CORPUSCULAR VOLUME 90.3 fl (82.0-101.0); MEAN PLATELET VOLUME 10.7 fl (7.4-10.4); MONOCYTE # 0.9 10^3/ul (0.3-0.9); MONOCYTES % 6.3 % (0.0-11.0); NEUTROPHIL # 13.5 10^3/ul (1.6-7.5); NEUTROPHILS % 90.1 % (39.0-77.0); RED BLOOD COUNT 5.45 10^6/ul (4.20-5.40); RED CELL DISTRIBUTION WIDTH 16.1 % (11.5-14.5)
--- NOTE | 2017-06-13 12:59 | CONS ---
Date/Time of Note Date/Time of Note DATE: 06/13/17 TIME: 12:58 Consult Date/Type/Reason Admit Date/Time Jun 10, 2017 at 00:01 Initial Consult Date 06/10/17 Type of Consultation: Pulmonary ICU Subjective Remains agitated. Shortness of breath on minimal exertion. Objective Vital Signs Date Time Temp Pulse Resp B/P Pulse Ox O2 Delivery O2 Flow Rate FiO2 06/13/17 11:00 109 24 110/80 95 Nasal Cannula 5.0 06/13/17 08:00 97.7 06/11/17 20:23 30 Intake and Output 06/12/17 06/12/17 06/13/17 15:00 23:00 07:00 Intake Total 600 ml 540 ml 20 ml Output Total 100 ml 500 ml 100 ml Balance 500 ml 40 ml -80 ml Exam GENERAL: Thin elderly cachectic lady awake alert comfortable mild confusion. VITAL SIGNS: per chart NECK: Supple. No JVD or lymphadenopathy. CARDIAC EXAM: S1, S2. No added sounds or murmurs. CHEST: Diminished air entry left base ABDOMEN: Soft, nontender. No guarding or rebound. EXTREMITIES: No cyanosis, clubbing or edema. NEUROLOGIC: Generalized weakness. No focal deficits. Results/Medications Result Diagram: 06/13/17 1200 06/12/17 0508 Results 24 hrs Laboratory Tests Test 06/12/17 20:00 06/13/17 10:00 06/13/17 12:00 Urine Eosinophils % 0.0 Urine Random Creatinine 116.17 Urine Random Sodium < 13 L Urine Total Protein 16.0 H Body Fluid Type THORACENTHESIS Body Fluid Volume 800.0 Body Fluid Color YELLOW Body Fluid Appearance HAZY Body Fluid WBC 319 Body Fluid RBC 1+ Body Fluid Neutrophils % Pending Body Fluid Lymphocytes (%) Pending White Blood Count 15.0 H Red Blood Count 5.45 H Hemoglobin 16.5 H Hematocrit 49.2 H Mean Corpuscular Volume 90.3 Mean Corpuscular Hemoglobin 30.3 Mean Corpuscular Hemoglobin Concent 33.5 Red Cell Distribution Width 16.1 H Platelet Count Pending Mean Platelet Volume 10.7 H Neutrophils % 90.1 H Lymphocytes % 2.7 L Monocytes % 6.3 Eosinophils % 0.0 Basophils % 0.1 Nucleated Red Blood Cells % 0.0 Neutrophils # 13.5 H Lymphocytes # 0.4 L Monocytes # 0.9 Eosinophils # 0.0 Basophils # 0.0 Nucleated Red Blood Cells # 0.0 Medications Current Medications Ondansetron HCl (Zofran Inj) 4 mg Q6H PRN IV NAUSEA AND/OR VOMITING; Start at 00:00 Acetaminophen (Tylenol Tab) 650 mg Q6H PRN PO PAIN LEVEL 1-3 OR FEVER; Start at 00:00 Morphine Sulfate (morphine) 1 mg Q4H PRN IV PAIN LEVEL 7-10 Last administered on 06/13/17 04:34; Admin Dose 1 MG; Start 06/10/17 at 00:00 Pantoprazole (Protonix Iv) 40 mg DAILY@06 IV Last administered on 06/13/17 05: 56; Admin Dose 40 MG; Start 06/10/17 at 06:00 Levothyroxine Sodium (Synthroid) 100 mcg DAILY@06 PO Last administered on 05:56; Admin Dose 100 MCG; Start 06/10/17 at 06:00 Multivitamins Therapeutic 1 tab 1 tab DAILY PO Last administered on 06/13/17 11:33; Admin Dose 1 TAB; Start 06/10/17 at 09:00 Vancomycin HCl/ Sodium Chloride (Vancocin/NS) 150 ml @ 75 mls/hr Q36H IVPB Last administered on 06/12/17 16:34; Admin Dose 75 MLS/HR; Start 06/12/17 at 13 :00 Dimethicone 1 applic 1 applic Q2H PRN TOP dry lips. Last administered on 17:43; Admin Dose 1 APPLIC; Start 06/11/17 at 09:00 Cefepime HCl 50 ml @ 100 mls/hr Q24H IVPB Last administered on 06/12/17 13:20 ; Admin Dose 100 MLS/HR; Start 06/11/17 at 14:00 Norepinephrine 16 mg/Dextrose 500 ml @ 1.87 mls/hr TITRATE IV ; Start 06/11/17 at 20:00 Levofloxacin/ Dextrose (Levaquin 250 Mg/ D5W 50 ml (Pmx)) 50 ml @ 50 mls/hr Q48H IVPB Last administered on 06/12/17 17:00; Admin Dose 50 MLS/HR; Start at 17:00 Assessment/Plan Chief Complaint/Hosp Course Assessment 1. Acute hypoxemic respiratory failure likely secondary to pleural effusion repeat thoracentesis this morning 2. Pleural effusion likely malignant given history of breast cancer, pending cytology results 3. Weight loss and cachexia concerning for progressive metastatic disease 4. Hypotension possibly underlying sepsis and/or adrenal insufficiency. Plan 1. Elevated pleural fluid protein concerning for malignancy. 2. May require chest tube or Pleurx catheter will attempt repeat thoracentesis. Will hold off from Pleurx catheter if patient being admitted to hospice. 3. Consider hematology oncology evaluation, hospice eval, 4. Transfer to telemetry this afternoon blood pressure stable 5. DVT and GI prophylaxis Patient and her son to discuss options with hospice this afternoon. cc40 mins Problems: LILLY MOODY MD, [facility] Jun 13, 2017 12:59
[2017-06-13 13:04] LABS: MAGNESIUM 2.5 mg/dl (1.7-2.5); PHOSPHORUS 3.2 mg/dl (2.5-4.9)
[2017-06-13 13:05] LABS: ALBUMIN 2.9 g/dl (3.3-4.9); ALBUMIN/GLOBULIN RATIO 0.87; BILIRUBIN,INDIRECT 1.2 mg/dl (0-1.1); BILIRUBIN,TOTAL 1.2 mg/dl (0.2-1.3); CALCIUM 9.3 mg/dl (8.4-10.2); CREATININE 1.31 mg/dl (0.44-1.00); POTASSIUM 4.3 mmol/L (3.5-5.1); TOTAL PROTEIN 6.2 g/dl (6.1-8.1)
[2017-06-13 13:36] LABS: PLATELET COUNT 137 10^3/UL (140-415); PLATELET ESTIMATE PLT APPEAR DECREASED
[2017-06-13 14:03] LABS: FLUID NEUTROPHILS 7 %
--- NOTE | 2017-06-13 14:05 | PN ---
Date/Time of Note Date/Time of Note DATE: 06/13/17 TIME: 14:02 Assessment/Plan VTE Prophylaxis VTE Prophylaxis Intervention: SCD's Lines/Catheters IV [facility] [place]ine Lock Urinary Cath still in place: No Assessment/Plan Chief Complaint/Hosp Course Assessment and plan 1. Acute hypoxic respiratory failure secondary to pleural effusion. Patient status post left-sided thoracentesis on June 10, 2017 as well as June 13, 2017. Pit Inspector following. Continue the recommendations. May need Pleurx catheter. Will follow 2. Left-sided pleural effusion recurrent. Patient again status post thoracentesis today. We will follow-up on fluid pathology. #2 decide for goals of care for hospice versus possible need for Pleurx catheter 3. Sepsis secondary to suspected left-sided pneumonia. Continue antibiotics. 4. Hypotension suspect secondary to #3. Status post IV fluids. Stable at present. Will monitor for now. 5. AK I. Monitor renal panel. Medications to be renally dosed. 6. History of breast cancer. Patient status post left-sided radical mastectomy. Patient for outpatient follow 7. Protein calorie malnutrition. Continue dietary supplements 8. Hypothyroidism. Continue on Synthroid DVT prophylaxis: SCDs Disposition and plan: Patient DNR. Follow-up with family for goals of care ( hospice versus possible need for Pleurx catheter) Discussed plan of care with Dr. Rayo. Critical CARE time: 30 minutes Problems: Subjective 24 Hr Interval Summary Free Text/Dictation Sitting in bed. Comfortable at present. Exam/Review of Systems Vital Signs Vitals Vital Signs Date Time Temp Pulse Resp B/P Pulse Ox O2 Delivery O2 Flow Rate FiO2 06/13/17 12:00 95 06/13/17 12:00 97.5 15 102/76 96 Nasal Cannula 4.0 06/11/17 20:23 30 Intake and Output 06/12/17 06/12/17 06/13/17 15:00 23:00 07:00 Intake Total 600 ml 540 ml 20 ml Output Total 100 ml 500 ml 100 ml Balance 500 ml 40 ml -80 ml Exam Constitutional: alert, frail, oriented Head: normocephalic Neck: supple Respiratory: other Cardiovascular: other (Regular rate) Musculoskeletal: nl extremities to inspection, No nl gait and stance Results Result Diagram: 06/13/17 1200 06/13/17 1200 Results 24 hrs Laboratory Tests Test 06/12/17 20:00 06/13/17 10:00 06/13/17 12:00 Urine Eosinophils % 0.0 Urine Random Creatinine 116.17 Urine Random Sodium < 13 L Urine Total Protein 16.0 H Body Fluid Type THORACENTHESIS Body Fluid Volume 800.0 Body Fluid Color YELLOW Body Fluid Appearance HAZY Body Fluid WBC 319 Body Fluid RBC 1+ Body Fluid Neutrophils % Pending Body Fluid Lymphocytes (%) Pending White Blood Count 15.0 H Red Blood Count 5.45 H Hemoglobin 16.5 H Hematocrit 49.2 H Mean Corpuscular Volume 90.3 Mean Corpuscular Hemoglobin 30.3 Mean Corpuscular Hemoglobin Concent 33.5 Red Cell Distribution Width 16.1 H Platelet Count 137 #L Mean Platelet Volume 10.7 H Neutrophils % 90.1 H Lymphocytes % 2.7 L Monocytes % 6.3 Eosinophils % 0.0 Basophils % 0.1 Nucleated Red Blood Cells % 0.0 Neutrophils # 13.5 H Lymphocytes # 0.4 L Monocytes # 0.9 Eosinophils # 0.0 Basophils # 0.0 Nucleated Red Blood Cells # 0.0 Differential Comment AUTO w/SCAN Platelet Estimate PLT APPEAR DECREASED Sodium Level 142 Potassium Level 4.3 Chloride Level 108 Carbon Dioxide Level 19 L Anion Gap 19 H Blood Urea Nitrogen 60 H Creatinine 1.31 H Glucose Level 97 Calcium Level 9.3 Phosphorus Level 3.2 Magnesium Level 2.5 Total Bilirubin 1.2 Direct Bilirubin 0.00 Indirect Bilirubin 1.2 H Aspartate Amino Transf (AST/SGOT) 39 Alanine Aminotransferase (ALT/SGPT) 59 Alkaline Phosphatase 97 Total Protein 6.2 Albumin 2.9 L Globulin 3.30 H Albumin/Globulin Ratio 0.87 Medications Medications Current Medications Ondansetron HCl (Zofran Inj) 4 mg Q6H PRN IV NAUSEA AND/OR VOMITING; Start at 00:00 Acetaminophen (Tylenol Tab) 650 mg Q6H PRN PO PAIN LEVEL 1-3 OR FEVER; Start at 00:00 Morphine Sulfate (morphine) 1 mg Q4H PRN IV PAIN LEVEL 7-10 Last administered on 06/13/17 04:34; Admin Dose 1 MG; Start 06/10/17 at 00:00 Pantoprazole (Protonix Iv) 40 mg DAILY@06 IV Last administered on 06/13/17 05: 56; Admin Dose 40 MG; Start 06/10/17 at 06:00 Levothyroxine Sodium (Synthroid) 100 mcg DAILY@06 PO Last administered on 05:56; Admin Dose 100 MCG; Start 06/10/17 at 06:00 Multivitamins Therapeutic 1 tab 1 tab DAILY PO Last administered on 06/13/17 11:33; Admin Dose 1 TAB; Start 06/10/17 at 09:00 Vancomycin HCl/ Sodium Chloride (Vancocin/NS) 150 ml @ 75 mls/hr Q36H IVPB Last administered on 06/12/17 16:34; Admin Dose 75 MLS/HR; Start 06/12/17 at 13 :00 Dimethicone 1 applic 1 applic Q2H PRN TOP dry lips. Last administered on 17:43; Admin Dose 1 APPLIC; Start 06/11/17 at 09:00 Cefepime HCl 50 ml @ 100 mls/hr Q24H IVPB Last administered on 06/12/17 13:20 ; Admin Dose 100 MLS/HR; Start 06/11/17 at 14:00 Norepinephrine 16 mg/Dextrose 500 ml @ 1.87 mls/hr TITRATE IV ; Start 06/11/17 at 20:00 Levofloxacin/ Dextrose (Levaquin 250 Mg/ D5W 50 ml (Pmx)) 50 ml @ 50 mls/hr Q48H IVPB Last administered on 06/12/17 17:00; Admin Dose 50 MLS/HR; Start at 17:00 DARBY BALTAZAR Jun 13, 2017 14:05
[2017-06-13 14:58] LABS: FLUID GLUCOSE 20 mg/dl
[2017-06-13 14:59] LABS: FLUID TYPE THORACENTESIS FLUID
[2017-06-13] MEDS: CEFEPIME 1GM/50 ML (PMX) 50 ML IVPB SCH (15:29)
--- NOTE | 2017-06-13 15:38 | RADRPT ---
PROCEDURE: US guided left thoracentesis. CLINICAL INDICATION: Shortness of breath. Left pleural effusion. TECHNIQUE: Prior to the procedure, informed consent was obtained. The risks, benefits, and alternatives were e xplained to the patient or the patient's family, including but not limited to bleeding, infection, p ain, visceral or vascular damage, shock, pneumothorax, chest tube placement, air embolism, and . The patient or the patient's family understood the risks and the alternatives and wished to proce ed with the study. Informed written consent was obtained. A procedural pause was performed. The patient's name, date of , and procedure to be performed were verified. Ultrasound of the left hemithorax was performed in the axial and sagittal planes. A left pleural eff usion is noted. Utilizing ultrasound guidance, optimal location for entry to the pleural cavity was ascertained. The overlying skin was prepped and draped in the usual sterile fashion. Approximately 10 ml of 1% Xylocaine was injected locally for pain control. Using ultrasound guidance, a 5-Tajik Yueh catheter was introduced into the left pleural space without difficulty. Fluid was aspirated. COMPARISON: 06/10/2017. FINDINGS: Initial ultrasound demonstrates fluid in the left pleural space. Approximately 0.800 liters of sero us fluid was aspirated and sent to the laboratory. IMPRESSION: 1. Satisfactory ultrasound-guided left thoracentesis. RPTAT: QQ .Christiano Jimenes MD, Date Time Electronically viewed and signed by .Christiano Jimenes MD, on 06/13/2017 15:38 .R/
--- NOTE | 2017-06-13 15:40 | RADRPT ---
PROCEDURE: XR Chest. CLINICAL INDICATION: Shortness of breath. TECHNIQUE: Single frontal view. COMPARISON: 06/11/2017. FINDINGS: There is mild right basilar atelectasis or pneumonia, unchanged. There is extensive left mid and low er lung zone atelectasis or pneumonia and a large left pleural effusion, improved. There is thoracic scoliosis convex right. The heart size is normal. There is no pneumothorax. IMPRESSION: 1. No pneumothorax following left thoracentesis. 2. Improved appearance of the left lung and smaller left pleural effusion. RPTAT: QQ .Christiano Jimenes MD, MD Date Time Electronically viewed and signed by .Christiano Jimenes MD, MD on 06/13/2017 15:39 .R/
[2017-06-14] VITALS (14 sets, daily range): BP systolic 88–122; BP diastolic 55–79; PULSE 97–112; RESP 16–22
[2017-06-14] MEDS: VANCOMYCIN 750 MG in SOD CHLORIDE 0.9% 150 ML IVPB SCH (03:19)
[2017-06-14] MEDS: PANTOPRAZOLE 40 MG INJ IV SCH (06:51)
[2017-06-14] MEDS: LEVOTHYROXINE 100 MCG TAB PO SCH (06:51)
[2017-06-14 07:59] LABS: ADD SCAN DIFF NO
[2017-06-14] MEDS: ALBUTEROL 0.083% (NEB) 2.5 MG/3 ML AMP HHN SCH ×4 (08:00→20:00)
[2017-06-14 08:08] LABS: BASOPHILS % 0.1 % (0.0-2.0); EOSINOPHILS % 0.1 % (0.0-7.0); HEMATOCRIT 48.2 % (37.0-47.0); HEMOGLOBIN 15.5 g/dl (12.0-16.0); LYMPHOCYTES # 0.8 10^3/ul (0.8-2.9); LYMPHOCYTES % 4.8 % (15.0-51.0); MEAN CORPUSCULAR HEMOGLOBIN 29.2 pg (29.0-33.0); MEAN CORPUSCULAR HGB CONC 32.2 g/dl (32.0-37.0); MEAN CORPUSCULAR VOLUME 90.8 fl (82.0-101.0); MEAN PLATELET VOLUME 11.2 fl (7.4-10.4); MONOCYTE # 1.5 10^3/ul (0.3-0.9); MONOCYTES % 9.2 % (0.0-11.0); NEUTROPHIL # 13.4 10^3/ul (1.6-7.5); PLATELET COUNT 120 10^3/UL (140-415); RED BLOOD COUNT 5.31 10^6/ul (4.20-5.40); WHITE BLOOD COUNT 15.8 10^3/ul (4.8-10.8)
[2017-06-14 08:28] LABS: ALBUMIN 2.6 g/dl (3.3-4.9); ALBUMIN/GLOBULIN RATIO 0.78; CREATININE 1.17 mg/dl (0.44-1.00); POTASSIUM 4.6 mmol/L (3.5-5.1); TOTAL PROTEIN 5.9 g/dl (6.1-8.1)
[2017-06-14] MEDS: MULTIVITAMINS THERAPEUTIC TAB PO SCH (09:02)
--- NOTE | 2017-06-14 14:17 | PN ---
Date/Time of Note Date/Time of Note DATE: 06/14/17 TIME: 14:14 Assessment/Plan VTE Prophylaxis VTE Prophylaxis Intervention: SCD's Lines/Catheters IV [facility]ter [facility]from [facility]): [facility] Lock Urinary Cath still in place: No Assessment/Plan Chief Complaint/Hosp Course Assessment and plan 1. Acute hypoxic respiratory failure secondary to pleural effusion. Patient status post left-sided thoracentesis on June 10, 2017 as well as June 13, 2017. Operating Room Surgical Technologist following. Continue the recommendations. Defer Pleurx catheter per shipboard intelligence analyst 2. Left-sided pleural effusion recurrent. Patient again status post thoracentesis today. We will follow-up on fluid pathology. #2 decide for goals of care for hospice versus possible need for Pleurx catheter 3. Sepsis secondary to suspected left-sided pneumonia. Continue antibiotics. 4. Hypotension suspect secondary to #3. Status post IV fluids. Stable at present. Will monitor for now. 5. AK I. Monitor renal panel. Medications to be renally dosed. 6. History of breast cancer. Patient status post left-sided radical mastectomy. Patient for outpatient follow 7. Protein calorie malnutrition. Continue dietary supplements 8. Hypothyroidism. Continue on Synthroid DVT prophylaxis: SCDs Disposition and plan: Patient DNR. Check follow-up chest radiograph for possible fluid reaccumulation on lungs. Possible need for Pleurx catheter should be accumulation occur. Follow-up with family for final goals of care and possibility of hospice. Discussed plan of care with Dr. Rayo. Problems: Subjective 24 Hr Interval Summary Free Text/Dictation No respiratory distress seen. Sitting on bed. Comfortable at present Exam/Review of Systems Vital Signs Vitals Vital Signs Date Time Temp Pulse Resp B/P Pulse Ox O2 Delivery O2 Flow Rate FiO2 06/14/17 13:02 4.0 06/14/17 12:27 100 06/14/17 11:23 97.9 22 107/55 94 06/14/17 09:21 Nasal Cannula 06/11/17 20:23 30 Intake and Output 06/13/17 06/13/17 06/14/17 15:00 23:00 07:00 Intake Total 670 ml Output Total 300 ml Balance 370 ml Exam Constitutional: alert, frail, oriented Psych: No anxiety Head: normocephalic Respiratory: diminished breath sounds (On left lung field) Cardiovascular: other Gastrointestinal: non-tender (Regular rate), soft Extremities: edema (Bilateral lower extremities) Neurological: nl mental status, nl speech Results Result Diagram: 06/14/17 0704 06/14/17 0704 Results 24 hrs Laboratory Tests Test 06/14/17 07:04 White Blood Count 15.8 H Red Blood Count 5.31 Hemoglobin 15.5 Hematocrit 48.2 H Mean Corpuscular Volume 90.8 Mean Corpuscular Hemoglobin 29.2 Mean Corpuscular Hemoglobin Concent 32.2 Red Cell Distribution Width 17.0 H Platelet Count 120 L Mean Platelet Volume 11.2 H Neutrophils % 85.0 H Lymphocytes % 4.8 L Monocytes % 9.2 Eosinophils % 0.1 Basophils % 0.1 Nucleated Red Blood Cells % 0.0 Neutrophils # 13.4 H Lymphocytes # 0.8 Monocytes # 1.5 H Eosinophils # 0.0 Basophils # 0.0 Nucleated Red Blood Cells # 0.0 Sodium Level 145 H Potassium Level 4.6 Chloride Level 115 H Carbon Dioxide Level 17 L Anion Gap 18 H Blood Urea Nitrogen 53 H Creatinine 1.17 H Glucose Level 85 Calcium Level 9.0 Total Bilirubin 1.0 Direct Bilirubin 0.00 Indirect Bilirubin 1.0 Aspartate Amino Transf (AST/SGOT) 61 H Alanine Aminotransferase (ALT/SGPT) 57 Alkaline Phosphatase 102 Total Protein 5.9 L Albumin 2.6 L Globulin 3.30 H Albumin/Globulin Ratio 0.78 Medications Medications Current Medications Ondansetron HCl (Zofran Inj) 4 mg Q6H PRN IV NAUSEA AND/OR VOMITING; Start at 00:00 Acetaminophen (Tylenol Tab) 650 mg Q6H PRN PO PAIN LEVEL 1-3 OR FEVER; Start at 00:00 Morphine Sulfate (morphine) 1 mg Q4H PRN IV PAIN LEVEL 7-10 Last administered on 06/13/17 04:34; Admin Dose 1 MG; Start 06/10/17 at 00:00 Pantoprazole (Protonix Iv) 40 mg DAILY@06 IV Last administered on 06/14/17 06: 51; Admin Dose 40 MG; Start 06/10/17 at 06:00 Levothyroxine Sodium (Synthroid) 100 mcg DAILY@06 PO Last administered on 06:51; Admin Dose 100 MCG; Start 06/10/17 at 06:00 Multivitamins Therapeutic 1 tab 1 tab DAILY PO Last administered on 06/14/17 09:02; Admin Dose 1 TAB; Start 06/10/17 at 09:00 Vancomycin HCl/ Sodium Chloride (Vancocin/NS) 150 ml @ 75 mls/hr Q36H IVPB Last administered on 06/14/17 03:19; Admin Dose 75 MLS/HR; Start 06/12/17 at 13 :00 Dimethicone 1 applic 1 applic Q2H PRN TOP dry lips. Last administered on 17:43; Admin Dose 1 APPLIC; Start 06/11/17 at 09:00 Cefepime HCl 50 ml @ 100 mls/hr Q24H IVPB Last administered on 06/13/17 15:29 ; Admin Dose 100 MLS/HR; Start 06/11/17 at 14:00 Levofloxacin/ Dextrose (Levaquin 250 Mg/ D5W 50 ml (Pmx)) 50 ml @ 50 mls/hr Q48H IVPB Last administered on 06/12/17 17:00; Admin Dose 50 MLS/HR; Start at 17:00 DARBY BALTAZAR Jun 14, 2017 14:16
[2017-06-14] MEDS: CEFEPIME 1GM/50 ML (PMX) 50 ML IVPB SCH (14:41)
--- NOTE | 2017-06-14 15:35 | CONS ---
Date/Time of Note Date/Time of Note DATE: 06/14/17 TIME: 15:33 Consult Date/Type/Reason Admit Date/Time Jun 10, 2017 at 00:01 Initial Consult Date 06/10/17 Type of Consultation: Pulmonary ICU Subjective Patient relatively comfortable this afternoon. Markedly cachectic lethargy but awake and arousable. Objective Vital Signs Date Time Temp Pulse Resp B/P Pulse Ox O2 Delivery O2 Flow Rate FiO2 06/14/17 15:30 98.0 104 22 111/79 94 06/14/17 13:02 4.0 06/14/17 09:21 Nasal Cannula 06/11/17 20:23 30 Intake and Output 06/13/17 06/13/17 06/14/17 15:00 23:00 07:00 Intake Total 670 ml Output Total 300 ml Balance 370 ml Exam GENERAL: Thin elderly cachectic lady awake alert comfortable mild confusion. VITAL SIGNS: per chart NECK: Supple. No JVD or lymphadenopathy. CARDIAC EXAM: S1, S2. No added sounds or murmurs. CHEST: Diminished air entry left base ABDOMEN: Soft, nontender. No guarding or rebound. EXTREMITIES: No cyanosis, clubbing or edema. NEUROLOGIC: Generalized weakness. No focal deficits. Results/Medications Result Diagram: 06/14/17 0704 06/14/17 0704 Results 24 hrs Laboratory Tests Test 06/14/17 07:04 White Blood Count 15.8 H Red Blood Count 5.31 Hemoglobin 15.5 Hematocrit 48.2 H Mean Corpuscular Volume 90.8 Mean Corpuscular Hemoglobin 29.2 Mean Corpuscular Hemoglobin Concent 32.2 Red Cell Distribution Width 17.0 H Platelet Count 120 L Mean Platelet Volume 11.2 H Neutrophils % 85.0 H Lymphocytes % 4.8 L Monocytes % 9.2 Eosinophils % 0.1 Basophils % 0.1 Nucleated Red Blood Cells % 0.0 Neutrophils # 13.4 H Lymphocytes # 0.8 Monocytes # 1.5 H Eosinophils # 0.0 Basophils # 0.0 Nucleated Red Blood Cells # 0.0 Sodium Level 145 H Potassium Level 4.6 Chloride Level 115 H Carbon Dioxide Level 17 L Anion Gap 18 H Blood Urea Nitrogen 53 H Creatinine 1.17 H Glucose Level 85 Calcium Level 9.0 Total Bilirubin 1.0 Direct Bilirubin 0.00 Indirect Bilirubin 1.0 Aspartate Amino Transf (AST/SGOT) 61 H Alanine Aminotransferase (ALT/SGPT) 57 Alkaline Phosphatase 102 Total Protein 5.9 L Albumin 2.6 L Globulin 3.30 H Albumin/Globulin Ratio 0.78 Medications Current Medications Ondansetron HCl (Zofran Inj) 4 mg Q6H PRN IV NAUSEA AND/OR VOMITING; Start at 00:00 Acetaminophen (Tylenol Tab) 650 mg Q6H PRN PO PAIN LEVEL 1-3 OR FEVER; Start at 00:00 Morphine Sulfate (morphine) 1 mg Q4H PRN IV PAIN LEVEL 7-10 Last administered on 06/13/17 04:34; Admin Dose 1 MG; Start 06/10/17 at 00:00 Pantoprazole (Protonix Iv) 40 mg DAILY@06 IV Last administered on 06/14/17 06: 51; Admin Dose 40 MG; Start 06/10/17 at 06:00 Levothyroxine Sodium (Synthroid) 100 mcg DAILY@06 PO Last administered on 06:51; Admin Dose 100 MCG; Start 06/10/17 at 06:00 Multivitamins Therapeutic (Theragran) 1 tab DAILY PO Last administered on 09:02; Admin Dose 1 TAB; Start 06/10/17 at 09:00 Dimethicone 1 applic 1 applic Q2H PRN TOP dry lips. Last administered on 17:43; Admin Dose 1 APPLIC; Start 06/11/17 at 09:00 Cefepime HCl 50 ml @ 100 mls/hr Q24H IVPB Last administered on 06/14/17 14:41 ; Admin Dose 100 MLS/HR; Start 06/11/17 at 14:00 Levofloxacin/ Dextrose 50 ml @ 50 mls/hr Q48H IVPB Last administered on 17:00; Admin Dose 50 MLS/HR; Start 06/12/17 at 17:00 Vancomycin HCl/ Sodium Chloride (Vancocin/NS) 150 ml @ 75 mls/hr Q36H IVPB ; Start 06/15/17 at 15:00 Miscellaneous Information (*Rx Drug Level Order Reminder*) 1 ONCE ONCE XX ; Start 06/15/17 at 14:00; Stop 06/15/17 at 14:01 Assessment/Plan Chief Complaint/Hosp Course Assessment 1. Acute hypoxemic respiratory failure likely secondary to pleural effusion repeat thoracentesis 2. Pleural effusion likely malignant given history of breast cancer, pending cytology results 3. Weight loss and cachexia concerning for progressive metastatic disease 4. Hypotension possibly underlying sepsis and/or adrenal insufficiency. Plan 1. Elevated pleural fluid protein concerning for malignancy. 2. May require chest tube or Pleurx catheter will attempt repeat thoracentesis. Will hold off from Pleurx catheter if patient being admitted to hospice. Patient currently reluctant to proceed with Pleurx cath 3. Consider hematology oncology evaluation, hospice eval, 4. Transfer to telemetry this afternoon blood pressure stable 5. DVT and GI prophylaxis Consider transfer to halfway under hospice. Prognosis very poor. Problems: LILLY MOODY MD, [facility] [place] 14, [place] 15:34
[2017-06-14 17:41] LABS: FLD TYPE THORACENTHESIS
[2017-06-14] MEDS: LEVOFLOXACIN 250MG/D5W (PMX) 50 ML IVPB SCH (17:50)
--- NOTE | 2017-06-14 17:50 | CONS ---
Date/Time of Note Date/Time of Note DATE: 06/14/17 TIME: 17:48 Assessment/Plan Assessment/Plan Chief Complaint/Hosp Course No acute changes overnight. Patient is alert, looks comfortable. No fevers Microbiology: Blood cultures on admission grew staph aureus and alpha hemolytic strep species Antibiotics: Vancomycin and Levaquin Allergies: Penicillins, sulfa Physical examination: This is a cachectic chronically ill-appearing elderly woman who is awake in no distress. Head atraumatic normocephalic nonicteric mucosa dry. Neck is supple. Chest rise symmetrical, breath sounds diminished basis. Heart S1-S2 abdomen soft bowel tones but equal bilateral edema skin multiple ecchymotic areas, patient has a left chest birthmark Assessment: 1. S status post sepsis with shock 2. Acute polymicrobial bacteremia 3. Acute hypoxemic respiratory failure 4. Large left pleural effusion likely malignant, status post thoracentesis on June 10, 2017 5. History of breast cancer status post left mastectomy 6. Cachexia 7. DNR status Plan: Remains stable, continue antibiotics, follow repeat blood cultures Discussed with Problems: Consultation Date/Type/Reason Admit Date/Time Jun 10, 2017 at 00:01 Initial Consult Date 06/13/17 Type of Consultation: ID Exam/Review of Systems Vital Signs Vitals Vital Signs Date Time Temp Pulse Resp B/P Pulse Ox O2 Delivery O2 Flow Rate FiO2 06/14/17 16:43 111 06/14/17 15:30 98.0 22 111/79 94 06/14/17 13:02 4.0 06/14/17 09:21 Nasal Cannula 06/11/17 20:23 30 Intake and Output 06/13/17 06/13/17 06/14/17 15:00 23:00 07:00 Intake Total 670 ml Output Total 300 ml Balance 370 ml Results Result Diagram: 06/14/17 0704 06/14/17 0704 Results 24 hrs Laboratory Tests Test 06/14/17 07:04 White Blood Count 15.8 H Red Blood Count 5.31 Hemoglobin 15.5 Hematocrit 48.2 H Mean Corpuscular Volume 90.8 Mean Corpuscular Hemoglobin 29.2 Mean Corpuscular Hemoglobin Concent 32.2 Red Cell Distribution Width 17.0 H Platelet Count 120 L Mean Platelet Volume 11.2 H Neutrophils % 85.0 H Lymphocytes % 4.8 L Monocytes % 9.2 Eosinophils % 0.1 Basophils % 0.1 Nucleated Red Blood Cells % 0.0 Neutrophils # 13.4 H Lymphocytes # 0.8 Monocytes # 1.5 H Eosinophils # 0.0 Basophils # 0.0 Nucleated Red Blood Cells # 0.0 Sodium Level 145 H Potassium Level 4.6 Chloride Level 115 H Carbon Dioxide Level 17 L Anion Gap 18 H Blood Urea Nitrogen 53 H Creatinine 1.17 H Glucose Level 85 Calcium Level 9.0 Total Bilirubin 1.0 Direct Bilirubin 0.00 Indirect Bilirubin 1.0 Aspartate Amino Transf (AST/SGOT) 61 H Alanine Aminotransferase (ALT/SGPT) 57 Alkaline Phosphatase 102 Total Protein 5.9 L Albumin 2.6 L Globulin 3.30 H Albumin/Globulin Ratio 0.78 Medications Medications Current Medications Ondansetron HCl (Zofran Inj) 4 mg Q6H PRN IV NAUSEA AND/OR VOMITING; Start at 00:00 Acetaminophen (Tylenol Tab) 650 mg Q6H PRN PO PAIN LEVEL 1-3 OR FEVER; Start at 00:00 Morphine Sulfate (morphine) 1 mg Q4H PRN IV PAIN LEVEL 7-10 Last administered on 06/13/17 04:34; Admin Dose 1 MG; Start 06/10/17 at 00:00 Pantoprazole (Protonix Iv) 40 mg DAILY@06 IV Last administered on 06/14/17 06: 51; Admin Dose 40 MG; Start 06/10/17 at 06:00 Levothyroxine Sodium (Synthroid) 100 mcg DAILY@06 PO Last administered on 06:51; Admin Dose 100 MCG; Start 06/10/17 at 06:00 Multivitamins Therapeutic (Theragran) 1 tab DAILY PO Last administered on 09:02; Admin Dose 1 TAB; Start 06/10/17 at 09:00 Dimethicone 1 applic 1 applic Q2H PRN TOP dry lips. Last administered on 17:43; Admin Dose 1 APPLIC; Start 06/11/17 at 09:00 Cefepime HCl 50 ml @ 100 mls/hr Q24H IVPB Last administered on 06/14/17 14:41 ; Admin Dose 100 MLS/HR; Start 06/11/17 at 14:00 Levofloxacin/ Dextrose 50 ml @ 50 mls/hr Q48H IVPB Last administered on t 17:00; Admin Dose 50 MLS/HR; Start 06/12/17 at 17:00 Vancomycin HCl/ Sodium Chloride (Vancocin/NS) 150 ml @ 75 mls/hr Q36H IVPB ; Start 06/15/17 at 15:00 Miscellaneous Information (*Rx Drug Level Order Reminder*) 1 ONCE ONCE XX ; Start 06/15/17 at 14:00; Stop 06/15/17 at 14:01 SWAPNA CRYSTAL NP Jun 14, 2017 17:50
[2017-06-15] VITALS (10 sets, daily range): BP systolic 96–115; BP diastolic 53–72; PULSE 82–102; RESP 16–20
[2017-06-15] MEDS: LEVOTHYROXINE 100 MCG TAB PO SCH (05:52)
[2017-06-15] MEDS: PANTOPRAZOLE 40 MG INJ IV SCH (05:52)
[2017-06-15] MEDS: ALBUTEROL 0.083% (NEB) 2.5 MG/3 ML AMP HHN SCH ×3 (08:00→20:00)
[2017-06-15] MEDS: MULTIVITAMINS THERAPEUTIC TAB PO SCH (09:13)
[2017-06-15] MEDS: DIMETHICONE STICK TOP PRN (11:48)
--- NOTE | 2017-06-15 13:17 | CONS ---
Date/Time of Note Date/Time of Note DATE: 06/15/17 TIME: 13:16 Assessment/Plan Assessment/Plan Chief Complaint/Hosp Course No acute changes overnight. Patient is alert, looks comfortable. No fevers Microbiology: Blood cultures on admission grew staph aureus and alpha hemolytic strep species Antibiotics: Vancomycin and Levaquin Allergies: Penicillins, sulfa Physical examination: This is a cachectic chronically ill-appearing elderly woman who is awake in no distress. Head atraumatic normocephalic nonicteric mucosa dry. Neck is supple. Chest rise symmetrical, breath sounds diminished basis. Heart S1-S2 abdomen soft bowel tones but equal bilateral edema skin multiple ecchymotic areas, patient has a left chest birthmark Assessment: 1. Status post sepsis with shock 2. Acute polymicrobial bacteremia 3. Acute hypoxemic respiratory failure 4. Large left pleural effusion likely malignant, status post thoracentesis on June 10, 2017 5. History of breast cancer status post left mastectomy 6. Cachexia 7. DNR status Plan: Remains stable, repeat blood cultures negative, continue antibiotics, will keep on IV vancomycin until June 26 to complete treatment for bacteremia Discussed with Problems: Consultation Date/Type/Reason Admit Date/Time Jun 10, 2017 at 00:01 Initial Consult Date 06/13/17 Type of Consultation: ID Exam/Review of Systems Vital Signs Vitals Vital Signs Date Time Temp Pulse Resp B/P Pulse Ox O2 Delivery O2 Flow Rate FiO2 06/15/17 13:08 102 96/54 96 Nasal Cannula 4.0 06/15/17 07:50 98.3 20 06/11/17 20:23 30 Intake and Output 06/14/17 06/14/17 06/15/17 15:00 23:00 07:00 Intake Total 100 ml 1430 ml 240 ml Output Total 450 ml 400 ml Balance -350 ml 1430 ml -160 ml Results Result Diagram: 06/14/17 0704 06/14/17 0704 Results 24 hrs Laboratory Tests Test 06/15/17 12:06 Lab Scanned Report REFERENCE LAB Medications Medications Current Medications Ondansetron HCl (Zofran Inj) 4 mg Q6H PRN IV NAUSEA AND/OR VOMITING; Start at 00:00 Acetaminophen (Tylenol Tab) 650 mg Q6H PRN PO PAIN LEVEL 1-3 OR FEVER Last administered on 06/15/17t 11:48; Admin Dose 650 MG; Start 06/10/17 at 00:00 Morphine Sulfate (morphine) 1 mg Q4H PRN IV PAIN LEVEL 7-10 Last administered on 06/13/17 04:34; Admin Dose 1 MG; Start 06/10/17 at 00:00 Pantoprazole (Protonix Iv) 40 mg DAILY@06 IV Last administered on 06/15/17 05: 52; Admin Dose 40 MG; Start 06/10/17 at 06:00 Levothyroxine Sodium (Synthroid) 100 mcg DAILY@06 PO Last administered on 05:52; Admin Dose 100 MCG; Start 06/10/17 at 06:00 Multivitamins Therapeutic (Theragran) 1 tab DAILY PO Last administered on 09:13; Admin Dose 1 TAB; Start 06/10/17 at 09:00 Dimethicone 1 applic 1 applic Q2H PRN TOP dry lips. Last administered on 11:48; Admin Dose 1 APPLIC; Start 06/11/17 at 09:00 Cefepime HCl 50 ml @ 100 mls/hr Q24H IVPB Last administered on 06/14/17 14:41 ; Admin Dose 100 MLS/HR; Start 06/11/17 at 14:00 Levofloxacin/ Dextrose 50 ml @ 50 mls/hr Q48H IVPB Last administered on 17:50; Admin Dose 50 MLS/HR; Start 06/12/17 at 17:00 Vancomycin HCl/ Sodium Chloride (Vancocin/NS) 150 ml @ 75 mls/hr Q36H IVPB ; Start 06/15/17 at 15:00 Miscellaneous Information (*Rx Drug Level Order Reminder*) 1 ONCE ONCE XX ; Start 06/15/17 at 14:00; Stop 06/15/17 at 14:01 SWAPNA CRYSTAL NP Jun 15, 2017 13:17
[2017-06-15 14:06] LABS: ADD SCAN DIFF NO
[2017-06-15 14:10] LABS: BASOPHILS % 0.1 % (0.0-2.0); EOSINOPHILS # 0.1 10^3/ul (0.0-0.5); EOSINOPHILS % 0.4 % (0.0-7.0); HEMATOCRIT 45.6 % (37.0-47.0); HEMOGLOBIN 15.1 g/dl (12.0-16.0); LYMPHOCYTES # 0.7 10^3/ul (0.8-2.9); LYMPHOCYTES % 5.1 % (15.0-51.0); MEAN CORPUSCULAR HEMOGLOBIN 29.7 pg (29.0-33.0); MEAN CORPUSCULAR HGB CONC 33.1 g/dl (32.0-37.0); MEAN CORPUSCULAR VOLUME 89.8 fl (82.0-101.0); MEAN PLATELET VOLUME 10.2 fl (7.4-10.4); MONOCYTE # 1.2 10^3/ul (0.3-0.9); MONOCYTES % 8.5 % (0.0-11.0); NEUTROPHIL # 11.8 10^3/ul (1.6-7.5); NEUTROPHILS % 85.2 % (39.0-77.0); PLATELET COUNT 100 10^3/UL (140-415); RED BLOOD COUNT 5.08 10^6/ul (4.20-5.40); RED CELL DISTRIBUTION WIDTH 16.3 % (11.5-14.5); WHITE BLOOD COUNT 13.8 10^3/ul (4.8-10.8)
[2017-06-15 14:25] LABS: ALBUMIN 2.6 g/dl (3.3-4.9); ALBUMIN/GLOBULIN RATIO 0.81; BILIRUBIN,INDIRECT 1.2 mg/dl (0-1.1); BILIRUBIN,TOTAL 1.2 mg/dl (0.2-1.3); CREATININE 0.97 mg/dl (0.44-1.00); POTASSIUM 4.1 mmol/L (3.5-5.1); TOTAL PROTEIN 5.8 g/dl (6.1-8.1)
[2017-06-15] MEDS: CEFEPIME 1GM/50 ML (PMX) 50 ML IVPB SCH (14:35)
--- NOTE | 2017-06-15 14:36 | CONS ---
Date/Time of Note Date/Time of Note DATE: 06/15/17 TIME: 14:35 Consult Date/Type/Reason Admit Date/Time Jun 10, 2017 at 00:01 Initial Consult Date 06/10/17 Type of Consultation: Pulmonary Subjective Patient appears comfortable this morning no new events Objective Vital Signs Date Time Temp Pulse Resp B/P Pulse Ox O2 Delivery O2 Flow Rate FiO2 06/15/17 13:08 102 96/54 96 Nasal Cannula 4.0 06/15/17 07:50 98.3 20 06/11/17 20:23 30 Intake and Output 06/14/17 06/14/17 06/15/17 15:00 23:00 07:00 Intake Total 100 ml 1430 ml 240 ml Output Total 450 ml 400 ml Balance -350 ml 1430 ml -160 ml Exam GENERAL: Thin elderly cachectic lady awake alert comfortable mild confusion. VITAL SIGNS: per chart NECK: Supple. No JVD or lymphadenopathy. CARDIAC EXAM: S1, S2. No added sounds or murmurs. CHEST: Diminished air entry left base ABDOMEN: Soft, nontender. No guarding or rebound. EXTREMITIES: No cyanosis, clubbing or edema. NEUROLOGIC: Generalized weakness. No focal deficits. Results/Medications Result Diagram: 06/15/17 1350 06/15/17 1350 Results 24 hrs Laboratory Tests Test 06/15/17 12:06 06/15/17 13:50 Lab Scanned Report REFERENCE LAB White Blood Count 13.8 H Red Blood Count 5.08 Hemoglobin 15.1 Hematocrit 45.6 Mean Corpuscular Volume 89.8 Mean Corpuscular Hemoglobin 29.7 Mean Corpuscular Hemoglobin Concent 33.1 Red Cell Distribution Width 16.3 H Platelet Count 100 L Mean Platelet Volume 10.2 Neutrophils % 85.2 H Lymphocytes % 5.1 L Monocytes % 8.5 Eosinophils % 0.4 Basophils % 0.1 Nucleated Red Blood Cells % 0.0 Neutrophils # 11.8 H Lymphocytes # 0.7 L Monocytes # 1.2 H Eosinophils # 0.1 Basophils # 0.0 Nucleated Red Blood Cells # 0.0 Sodium Level 142 Potassium Level 4.1 Chloride Level 108 Carbon Dioxide Level 21 Anion Gap 17 H Blood Urea Nitrogen 46 H Creatinine 0.97 Glucose Level 112 Calcium Level 9.0 Total Bilirubin 1.2 Direct Bilirubin 0.00 Indirect Bilirubin 1.2 H Aspartate Amino Transf (AST/SGOT) 32 Alanine Aminotransferase (ALT/SGPT) 57 Alkaline Phosphatase 90 Total Protein 5.8 L Albumin 2.6 L Globulin 3.20 Albumin/Globulin Ratio 0.81 Vancomycin Level Trough 13.9 Medications Current Medications Ondansetron HCl (Zofran Inj) 4 mg Q6H PRN IV NAUSEA AND/OR VOMITING; Start at 00:00 Acetaminophen (Tylenol Tab) 650 mg Q6H PRN PO PAIN LEVEL 1-3 OR FEVER Last administered on 06/15/17 11:48; Admin Dose 650 MG; Start 06/10/17 at 00:00 Morphine Sulfate (morphine) 1 mg Q4H PRN IV PAIN LEVEL 7-10 Last administered on 06/13/17 04:34; Admin Dose 1 MG; Start 06/10/17 at 00:00 Pantoprazole (Protonix Iv) 40 mg DAILY@06 IV Last administered on 06/15/17 05: 52; Admin Dose 40 MG; Start 06/10/17 at 06:00 Levothyroxine Sodium (Synthroid) 100 mcg DAILY@06 PO Last administered on 05:52; Admin Dose 100 MCG; Start 06/10/17 at 06:00 Multivitamins Therapeutic (Theragran) 1 tab DAILY PO Last administered on 09:13; Admin Dose 1 TAB; Start 06/10/17 at 09:00 Dimethicone 1 applic 1 applic Q2H PRN TOP dry lips. Last administered on 11:48; Admin Dose 1 APPLIC; Start 06/11/17 at 09:00 Cefepime HCl 50 ml @ 100 mls/hr Q24H IVPB Last administered on 06/14/17 14:41 ; Admin Dose 100 MLS/HR; Start 06/11/17 at 14:00 Levofloxacin/ Dextrose 50 ml @ 50 mls/hr Q48H IVPB Last administered on 17:50; Admin Dose 50 MLS/HR; Start 06/12/17 at 17:00 Vancomycin HCl/ Sodium Chloride (Vancocin/NS) 150 ml @ 75 mls/hr Q36H IVPB ; Start 06/15/17 at 15:00 Assessment/Plan Chief Complaint/Hosp Course Assessment 1. Acute hypoxemic respiratory failure likely secondary to pleural effusion repeat thoracentesis 2. Pleural effusion likely malignant given history of breast cancer, pending cytology results 3. Weight loss and cachexia concerning for progressive metastatic disease 4. Hypotension possibly underlying sepsis and/or adrenal insufficiency. Plan 1. Elevated pleural fluid protein concerning for malignancy. 2. Discussed with patient she is reluctant to proceed with Pleurx catheter would rather manage conservatively 3. Consider hematology oncology evaluation, hospice eval, 4. Discussed with palliative care 5. DVT and GI prophylaxis Agree with inpatient hospice Problems: LILLY MOODY MD, [facility] Jun 15, 2017 14:36
[2017-06-15] MEDS: VANCOMYCIN 750 MG in SOD CHLORIDE 0.9% 150 ML IVPB SCH (15:26)
--- NOTE | 2017-06-15 15:50 | PN ---
Date/Time of Note Date/Time of Note DATE: 06/15/17 TIME: 15:45 Assessment/Plan VTE Prophylaxis VTE Prophylaxis Intervention: SCD's Lines/Catheters IV [facility]from [facility] Peripheral IV Urinary Cath still in place: No Assessment/Plan Chief Complaint/Hosp Course Assessment and plan 1. Acute hypoxic respiratory failure secondary to pleural effusion. Patient status post left-sided thoracentesis on June 10, 2017 as well as June 13, 2017. Automatic Gl[employer] following. Continue the recommendations. Defer Pleurx catheter per cosmetic dentist 2. Left-sided pleural effusion recurrent. continue with cosmetic dentist recs 3. Sepsis secondary to suspected left-sided pneumonia. Continue antibiotics. 4. Hypotension suspect secondary to #3. Status post IV fluids. Stable at present. Will monitor for now. 5. GATO. Monitor renal panel. Medications to be renally dosed. 6. History of breast cancer. Patient status post left-sided radical mastectomy. Patient for outpatient follow 7. Protein calorie malnutrition. Continue dietary supplements 8. Hypothyroidism. Continue on Synthroid DVT prophylaxis: SCDs Disposition and plan: Possible plan for hospice. Will follow up. Pending repeat eval Discussed plan of care with Dr. Rayo. Problems: Subjective 24 Hr Interval Summary Free Text/Dictation no s/s of respiratory distress. comfortable at this time Exam/Review of Systems Vital Signs Vitals Vital Signs Date Time Temp Pulse Resp B/P Pulse Ox O2 Delivery O2 Flow Rate FiO2 06/15/17 13:08 102 96/54 96 Nasal Cannula 4.0 06/15/17 07:50 98.3 20 06/11/17 20:23 30 Intake and Output 06/14/17 06/14/17 06/15/17 15:00 23:00 07:00 Intake Total 100 ml 1430 ml 240 ml Output Total 450 ml 400 ml Balance -350 ml 1430 ml -160 ml Exam Constitutional: alert, oriented Head: normocephalic Neck: supple Respiratory: clear to auscultation Cardiovascular: regular rate and rhythm Gastrointestinal: non-tender, soft Neurological: COGNOS BI ADMINISTRATOR II-XII intact, nl mental status, nl speech Results Result Diagram: 06/15/17 1350 06/15/17 1350 Results 24 hrs Laboratory Tests Test 06/15/17 12:06 06/15/17 13:50 Lab Scanned Report REFERENCE LAB White Blood Count 13.8 H Red Blood Count 5.08 Hemoglobin 15.1 Hematocrit 45.6 Mean Corpuscular Volume 89.8 Mean Corpuscular Hemoglobin 29.7 Mean Corpuscular Hemoglobin Concent 33.1 Red Cell Distribution Width 16.3 H Platelet Count 100 L Mean Platelet Volume 10.2 Neutrophils % 85.2 H Lymphocytes % 5.1 L Monocytes % 8.5 Eosinophils % 0.4 Basophils % 0.1 Nucleated Red Blood Cells % 0.0 Neutrophils # 11.8 H Lymphocytes # 0.7 L Monocytes # 1.2 H Eosinophils # 0.1 Basophils # 0.0 Nucleated Red Blood Cells # 0.0 Sodium Level 142 Potassium Level 4.1 Chloride Level 108 Carbon Dioxide Level 21 Anion Gap 17 H Blood Urea Nitrogen 46 H Creatinine 0.97 Glucose Level 112 Calcium Level 9.0 Total Bilirubin 1.2 Direct Bilirubin 0.00 Indirect Bilirubin 1.2 H Aspartate Amino Transf (AST/SGOT) 32 Alanine Aminotransferase (ALT/SGPT) 57 Alkaline Phosphatase 90 Total Protein 5.8 L Albumin 2.6 L Globulin 3.20 Albumin/Globulin Ratio 0.81 Vancomycin Level Trough 13.9 Medications Medications Current Medications Ondansetron HCl (Zofran Inj) 4 mg Q6H PRN IV NAUSEA AND/OR VOMITING; Start at 00:00 Acetaminophen (Tylenol Tab) 650 mg Q6H PRN PO PAIN LEVEL 1-3 OR FEVER Last administered on 06/15/17 11:48; Admin Dose 650 MG; Start 06/10/17 at 00:00 Morphine Sulfate (morphine) 1 mg Q4H PRN IV PAIN LEVEL 7-10 Last administered on 06/13/17 04:34; Admin Dose 1 MG; Start 06/10/17 at 00:00 Pantoprazole (Protonix Iv) 40 mg DAILY@06 IV Last administered on 06/15/17 05: 52; Admin Dose 40 MG; Start 06/10/17 at 06:00 Levothyroxine Sodium (Synthroid) 100 mcg DAILY@06 PO Last administered on 05:52; Admin Dose 100 MCG; Start 06/10/17 at 06:00 Multivitamins Therapeutic (Theragran) 1 tab DAILY PO Last administered on 09:13; Admin Dose 1 TAB; Start 06/10/17 at 09:00 Dimethicone 1 applic 1 applic Q2H PRN TOP dry lips. Last administered on 11:48; Admin Dose 1 APPLIC; Start 06/11/17 at 09:00 Cefepime HCl 50 ml @ 100 mls/hr Q24H IVPB Last administered on 06/15/17 14:35 ; Admin Dose 100 MLS/HR; Start 06/11/17 at 14:00 Levofloxacin/ Dextrose 50 ml @ 50 mls/hr Q48H IVPB Last administered on 17:50; Admin Dose 50 MLS/HR; Start 06/12/17 at 17:00 Vancomycin HCl/ Sodium Chloride (Vancocin/NS) 150 ml @ 75 mls/hr Q36H IVPB Last administered on 06/15/17 15:26; Admin Dose 75 MLS/HR; Start 06/15/17 at 15 :00 DARBY BALTAZAR Jun 15, 2017 15:50
[2017-06-16 02:03] VITALS: BP 98/63; RESP 16
[2017-06-16] MEDS: PANTOPRAZOLE 40 MG INJ IV SCH (05:54)
[2017-06-16] MEDS: LEVOTHYROXINE 100 MCG TAB PO SCH (05:55)
[2017-06-16 07:06] LABS: CREATININE 0.92 mg/dl (0.44-1.00); MAGNESIUM 2.4 mg/dl (1.7-2.5); PHOSPHORUS 2.4 mg/dl (2.5-4.9); POTASSIUM 4.5 mmol/L (3.5-5.1)
[2017-06-16] MEDS: ALBUTEROL 0.083% (NEB) 2.5 MG/3 ML AMP HHN SCH ×3 (08:00→20:01)
[2017-06-16 08:16] VITALS: BP 94/61; RESP 18
[2017-06-16] MEDS: MULTIVITAMINS THERAPEUTIC TAB PO SCH (09:21)
--- NOTE | 2017-06-16 09:22 | CONS ---
Date/Time of Note Date/Time of Note DATE: 06/16/17 TIME: 08:22 Assessment/Plan Assessment/Plan Additional Assessment/Plan Suggest hospice care I will have a conversation with patient June 16. Consultation Date/Type/Reason Admit Date/Time Jun 10, 2017 at 00:01 Initial Consult Date 06/13/17 Type of Consultation: Palliative care 24 HR Interval Summary Free Text/Dictation I will speak to patient once again concerning ongoing level of care, she does qualify for hospice care Exam/Review of Systems Vital Signs Vitals Vital Signs Date Time Temp Pulse Resp B/P Pulse Ox O2 Delivery O2 Flow Rate FiO2 06/16/17 08:16 97.6 102 18 94/61 99 06/15/17 20:00 Nasal Cannula 4.0 Intake and Output 06/15/17 06/15/17 06/16/17 15:00 23:00 07:00 Intake Total 600 ml 950 ml Balance 600 ml 950 ml Results Result Diagram: 06/15/17 1350 06/16/17 0545 Results 24 hrs Laboratory Tests Test 06/15/17 12:06 06/15/17 13:50 06/16/17 05:45 Lab Scanned Report REFERENCE LAB White Blood Count 13.8 H Red Blood Count 5.08 Hemoglobin 15.1 Hematocrit 45.6 Mean Corpuscular Volume 89.8 Mean Corpuscular Hemoglobin 29.7 Mean Corpuscular Hemoglobin Concent 33.1 Red Cell Distribution Width 16.3 H Platelet Count 100 L Mean Platelet Volume 10.2 Neutrophils % 85.2 H Lymphocytes % 5.1 L Monocytes % 8.5 Eosinophils % 0.4 Basophils % 0.1 Nucleated Red Blood Cells % 0.0 Neutrophils # 11.8 H Lymphocytes # 0.7 L Monocytes # 1.2 H Eosinophils # 0.1 Basophils # 0.0 Nucleated Red Blood Cells # 0.0 Sodium Level 142 143 Potassium Level 4.1 4.5 Chloride Level 108 108 Carbon Dioxide Level 21 24 Anion Gap 17 H 16 Blood Urea Nitrogen 46 H 42 H Creatinine 0.97 0.92 Glucose Level 112 88 Calcium Level 9.0 9.0 Total Bilirubin 1.2 Direct Bilirubin 0.00 Indirect Bilirubin 1.2 H Aspartate Amino Transf (AST/SGOT) 32 Alanine Aminotransferase (ALT/SGPT) 57 Alkaline Phosphatase 90 Total Protein 5.8 L Albumin 2.6 L Globulin 3.20 Albumin/Globulin Ratio 0.81 Vancomycin Level Trough 13.9 Phosphorus Level 2.4 L Magnesium Level 2.4 Medications Medications Current Medications Ondansetron HCl (Zofran Inj) 4 mg Q6H PRN IV NAUSEA AND/OR VOMITING; Start at 00:00 Acetaminophen (Tylenol Tab) 650 mg Q6H PRN PO PAIN LEVEL 1-3 OR FEVER Last administered on 06/15/17 11:48; Admin Dose 650 MG; Start 06/10/17 at 00:00 Morphine Sulfate (morphine) 1 mg Q4H PRN IV PAIN LEVEL 7-10 Last administered on 06/13/17 04:34; Admin Dose 1 MG; Start 06/10/17 at 00:00 Pantoprazole (Protonix Iv) 40 mg DAILY@06 IV Last administered on 06/16/17 05: 54; Admin Dose 40 MG; Start 06/10/17 at 06:00 Levothyroxine Sodium (Synthroid) 100 mcg DAILY@06 PO Last administered on 05:55; Admin Dose 100 MCG; Start 06/10/17 at 06:00 Multivitamins Therapeutic (Theragran) 1 tab DAILY PO Last administered on 09:13; Admin Dose 1 TAB; Start 06/10/17 at 09:00 Dimethicone 1 applic 1 applic Q2H PRN TOP dry lips. Last administered on 11:48; Admin Dose 1 APPLIC; Start 06/11/17 at 09:00 Cefepime HCl 50 ml @ 100 mls/hr Q24H IVPB Last administered on 06/15/17 14:35 ; Admin Dose 100 MLS/HR; Start 06/11/17 at 14:00 Levofloxacin/ Dextrose 50 ml @ 50 mls/hr Q48H IVPB Last administered on 17:50; Admin Dose 50 MLS/HR; Start 06/12/17 at 17:00 Vancomycin HCl/ Sodium Chloride (Vancocin/NS) 150 ml @ 75 mls/hr Q36H IVPB Last administered on 06/15/17 15:26; Admin Dose 75 MLS/HR; Start 06/15/17 at 15 :00 NATHALY HIGHTOWER Jun 16, 2017 09:21
--- NOTE | 2017-06-16 11:33 | CONS ---
Date/Time of Note Date/Time of Note DATE: 06/16/17 TIME: 11:32 Consult Date/Type/Reason Admit Date/Time Jun 10, 2017 at 00:01 Initial Consult Date 06/10/17 Type of Consultation: Pulmonary ICU Subjective Still significant gross weakness. Denies shortness of breath this morning. Objective Vital Signs Date Time Temp Pulse Resp B/P Pulse Ox O2 Delivery O2 Flow Rate FiO2 06/16/17 08:16 97.6 102 18 94/61 99 06/16/17 08:05 Nasal Cannula 06/15/17 20:00 4.0 Intake and Output 06/15/17 06/15/17 06/16/17 15:00 23:00 07:00 Intake Total 600 ml 950 ml Balance 600 ml 950 ml Results/Medications Result Diagram: 06/15/17 1350 06/16/17 0545 Results 24 hrs Laboratory Tests Test 06/15/17 12:06 06/15/17 13:50 06/16/17 05:45 06/16/17 10:23 Lab Scanned Report REFERENCE LAB REFERENCE LAB White Blood Count 13.8 H Red Blood Count 5.08 Hemoglobin 15.1 Hematocrit 45.6 Mean Corpuscular Volume 89.8 Mean Corpuscular Hemoglobin 29.7 Mean Corpuscular Hemoglobin Concent 33.1 Red Cell Distribution Width 16.3 H Platelet Count 100 L Mean Platelet Volume 10.2 Neutrophils % 85.2 H Lymphocytes % 5.1 L Monocytes % 8.5 Eosinophils % 0.4 Basophils % 0.1 Nucleated Red Blood Cells % 0.0 Neutrophils # 11.8 H Lymphocytes # 0.7 L Monocytes # 1.2 H Eosinophils # 0.1 Basophils # 0.0 Nucleated Red Blood Cells # 0.0 Sodium Level 142 143 Potassium Level 4.1 4.5 Chloride Level 108 108 Carbon Dioxide Level 21 24 Anion Gap 17 H 16 Blood Urea Nitrogen 46 H 42 H Creatinine 0.97 0.92 Glucose Level 112 88 Calcium Level 9.0 9.0 Total Bilirubin 1.2 Direct Bilirubin 0.00 Indirect Bilirubin 1.2 H Aspartate Amino Transf (AST/SGOT) 32 Alanine Aminotransferase (ALT/SGPT) 57 Alkaline Phosphatase 90 Total Protein 5.8 L Albumin 2.6 L Globulin 3.20 Albumin/Globulin Ratio 0.81 Vancomycin Level Trough 13.9 Phosphorus Level 2.4 L Magnesium Level 2.4 Medications Current Medications Ondansetron HCl (Zofran Inj) 4 mg Q6H PRN IV NAUSEA AND/OR VOMITING; Start at 00:00 Acetaminophen (Tylenol Tab) 650 mg Q6H PRN PO PAIN LEVEL 1-3 OR FEVER Last administered on 06/15/17 11:48; Admin Dose 650 MG; Start 06/10/17 at 00:00 Morphine Sulfate (morphine) 1 mg Q4H PRN IV PAIN LEVEL 7-10 Last administered on 06/13/17 04:34; Admin Dose 1 MG; Start 06/10/17 at 00:00 Pantoprazole (Protonix Iv) 40 mg DAILY@06 IV Last administered on 06/16/17 05: 54; Admin Dose 40 MG; Start 06/10/17 at 06:00 Levothyroxine Sodium (Synthroid) 100 mcg DAILY@06 PO Last administered on 05:55; Admin Dose 100 MCG; Start 06/10/17 at 06:00 Multivitamins Therapeutic (Theragran) 1 tab DAILY PO Last administered on 09:21; Admin Dose 1 TAB; Start 06/10/17 at 09:00 Dimethicone 1 applic 1 applic Q2H PRN TOP dry lips. Last administered on 11:48; Admin Dose 1 APPLIC; Start 06/11/17 at 09:00 Cefepime HCl 50 ml @ 100 mls/hr Q24H IVPB Last administered on 06/15/17 14:35 ; Admin Dose 100 MLS/HR; Start 06/11/17 at 14:00 Levofloxacin/ Dextrose 50 ml @ 50 mls/hr Q48H IVPB Last administered on 17:50; Admin Dose 50 MLS/HR; Start 06/12/17 at 17:00 Vancomycin HCl/ Sodium Chloride (Vancocin/NS) 150 ml @ 75 mls/hr Q36H IVPB Last administered on 06/15/17 15:26; Admin Dose 75 MLS/HR; Start 06/15/17 at 15 :00 Assessment/Plan Chief Complaint/Hosp Course Assessment 1. Acute hypoxemic respiratory failure likely secondary to pleural effusion repeat thoracentesis 2. Pleural effusion likely malignant given history of breast cancer, pending cytology results 3. Weight loss and cachexia concerning for progressive metastatic disease 4. Hypotension possibly underlying sepsis and/or adrenal insufficiency. Plan 1. Elevated pleural fluid protein concerning for malignancy. 2. Discussed with patient she is reluctant to proceed with Pleurx catheter would rather manage conservatively 3. Consider hematology oncology evaluation, hospice eval, 4. Discussed with palliative care 5. DVT and GI prophylaxis Agree with inpatient hospice Problems: LILLY MOODY MD, [facility] Jun 16, 2017 11:33
[2017-06-16 14:00] VITALS: BP 97/72; RESP 20
[2017-06-16] MEDS ORDERED: Dimethicone TOP (14:42)
[2017-06-16] MEDS ORDERED: Vancomycin Iv Per Pharmacy XX (14:42)
[2017-06-16] MEDS ORDERED: ONDA4VIA2 IV (14:42)
[2017-06-16] MEDS ORDERED: ALBU2.5V3 HHN ×2 (14:42)
[2017-06-16] MEDS ORDERED: ACET325T40 PO (14:42)
[2017-06-16] MEDS ORDERED: MOR2I IV (14:42)
[2017-06-16] MEDS ORDERED: PANT40VI7 IV (14:42)
--- NOTE | 2017-06-16 14:46 | PDOCDIS ---
Discharge Instructions DIAGNOSIS Discharge Diagnosis 1. Acute hypoxic respiratory failure secondary to malignant pleural effusion 2. Left-sided malignant pleural effusion 3. Sepsis secondary to suspected left-sided pneumonia 4. Hypotension secondary to #3. 5. Acute kidney injury on likely chronic kidney disease 6. History of breast cancer 7. Protein calorie malnutrition 8. Hypothyroid CONDITION Patient Condition: Stable HOME CARE INSTRUCTIONS: Special Diet: REGULAR DIET OTHER ORDERS: Other Orders: Further care and management per intermediate facility DARBY BALTAZAR Jun 16, 2017 14:46
--- NOTE | 2017-06-16 15:33 | CONS ---
Date/Time of Note Date/Time of Note DATE: 06/16/17 TIME: 15:32 Assessment/Plan Assessment/Plan Chief Complaint/Hosp Course No acute changes overnight. Patient is alert, looks comfortable. No fevers Microbiology: Blood cultures on admission grew staph aureus and alpha hemolytic strep species Antibiotics: Vancomycin and Levaquin Allergies: Penicillins, sulfa Physical examination: This is a cachectic chronically ill-appearing elderly woman who is awake in no distress. Head atraumatic normocephalic nonicteric mucosa dry. Neck is supple. Chest rise symmetrical, breath sounds diminished basis. Heart S1-S2 abdomen soft bowel tones but equal bilateral edema skin multiple ecchymotic areas, patient has a left chest birthmark Assessment: 1. Status post sepsis with shock 2. Acute polymicrobial bacteremia 3. Acute hypoxemic respiratory failure 4. Large malignant left pleural effusion, status post thoracentesis on May 5. History of breast cancer status post left mastectomy 6. Cachexia 7. DNR status Plan: Remains unchanged, repeat blood cultures negative, continue IV vancomycin until June 26 to complete treatment for bacteremia discontinue Levaquin Discussed with Problems: Consultation Date/Type/Reason Admit Date/Time Jun 10, 2017 at 00:01 Initial Consult Date 06/13/17 Type of Consultation: ID Exam/Review of Systems Vital Signs Vitals Vital Signs Date Time Temp Pulse Resp B/P Pulse Ox O2 Delivery O2 Flow Rate FiO2 06/16/17 14:00 97.6 107 20 97/72 96 06/16/17 08:05 Nasal Cannula 06/15/17 20:00 4.0 Intake and Output 06/15/17 06/15/17 06/16/17 15:00 23:00 07:00 Intake Total 600 ml 950 ml Balance 600 ml 950 ml Results Result Diagram: 06/15/17 1350 06/16/17 0545 Results 24 hrs Laboratory Tests Test 06/16/17 05:45 06/16/17 10:23 Sodium Level 143 Potassium Level 4.5 Chloride Level 108 Carbon Dioxide Level 24 Anion Gap 16 Blood Urea Nitrogen 42 H Creatinine 0.92 Glucose Level 88 Calcium Level 9.0 Phosphorus Level 2.4 L Magnesium Level 2.4 Lab Scanned Report REFERENCE LAB Medications Medications Current Medications Ondansetron HCl (Zofran Inj) 4 mg Q6H PRN IV NAUSEA AND/OR VOMITING; Start at 00:00 Acetaminophen (Tylenol Tab) 650 mg Q6H PRN PO PAIN LEVEL 1-3 OR FEVER Last administered on 06/15/17 11:48; Admin Dose 650 MG; Start 06/10/17 at 00:00 Morphine Sulfate (morphine) 1 mg Q4H PRN IV PAIN LEVEL 7-10 Last administered on 06/13/17 04:34; Admin Dose 1 MG; Start 06/10/17 at 00:00 Pantoprazole (Protonix Iv) 40 mg DAILY@06 IV Last administered on 06/16/17 05: 54; Admin Dose 40 MG; Start 06/10/17 at 06:00 Levothyroxine Sodium (Synthroid) 100 mcg DAILY@06 PO Last administered on 05:55; Admin Dose 100 MCG; Start 06/10/17 at 06:00 Multivitamins Therapeutic (Theragran) 1 tab DAILY PO Last administered on 09:21; Admin Dose 1 TAB; Start 06/10/17 at 09:00 Dimethicone 1 applic 1 applic Q2H PRN TOP dry lips. Last administered on 11:48; Admin Dose 1 APPLIC; Start 06/11/17 at 09:00 Levofloxacin/ Dextrose 50 ml @ 50 mls/hr Q48H IVPB Last administered on 17:50; Admin Dose 50 MLS/HR; Start 06/12/17 at 17:00 Vancomycin HCl/ Sodium Chloride (Vancocin/NS) 150 ml @ 75 mls/hr Q36H IVPB Last administered on 06/15/17 15:26; Admin Dose 75 MLS/HR; Start 06/15/17 at 15 :00 SWAPNA CRYSTAL NP Jun 16, 2017 15:33
--- NOTE | 2017-06-16 16:40 | PN ---
Date/Time of Note Date/Time of Note DATE: 06/16/17 TIME: 16:38 Assessment/Plan VTE Prophylaxis VTE Prophylaxis Intervention: SCD's Lines/Catheters IV Catheter Type (from [facility]): Saline Lock Urinary Cath still in place: No Assessment/Plan Chief Complaint/Hosp Course Assessment and plan 1. Acute hypoxic respiratory failure secondary to pleural effusion. Patient status post left-sided thoracentesis on June 10, 2017 as well as June 13, 2017. Devulcanizer Charger following. Continue the recommendations. Patient refusing Pleurx catheter at this time. Will monitor for now. 2. Left-sided pleural effusion recurrent. continue with saddle stitcher recs. Check follow-up chest x-ray 3. Sepsis secondary to suspected left-sided pneumonia. Continue antibiotics. 4. Hypotension suspect secondary to #3. Status post IV fluids. Stable at present. Will monitor for now. 5. GATO. Monitor renal panel. Medications to be renally dosed. 6. History of breast cancer. Patient status post left-sided radical mastectomy. Patient for outpatient follow 7. Protein calorie malnutrition. Continue dietary supplements 8. Hypothyroidism. Continue on Synthroid DVT prophylaxis: SCDs Disposition and plan: Tentative plan for alf facility placement. No plan for hospice at this time. Discussed with case management. Will check up on follow-up chest radiograph. Anticipate discharge within the next 24 hours if medically stable Discussed plan of care with Dr. Rayo. Problems: Subjective 24 Hr Interval Summary Free Text/Dictation Resting at this time. Reports no shortness of breath at this time we will follow-up Exam/Review of Systems Vital Signs Vitals Vital Signs Date Time Temp Pulse Resp B/P Pulse Ox O2 Delivery O2 Flow Rate FiO2 06/16/17 14:00 97.6 107 20 97/72 96 06/16/17 08:05 Nasal Cannula 06/15/17 20:00 4.0 Intake and Output 06/15/17 06/15/17 06/16/17 14:59 22:59 06:59 Intake Total 600 ml 950 ml Balance 600 ml 950 ml Exam Constitutional: alert, frail, oriented Neck: supple, No jvd Respiratory: clear to auscultation, normal air movement Gastrointestinal: non-tender, soft Musculoskeletal: nl extremities to inspection Neurological: ASSISTANT BRANCH MANAGER II-XII intact, nl mental status, nl speech Skin: nl turgor, No laceration Results Result Diagram: 06/15/17 1350 06/16/17 0545 Results 24 hrs Laboratory Tests Test 06/16/17 05:45 06/16/17 10:23 Sodium Level 143 Potassium Level 4.5 Chloride Level 108 Carbon Dioxide Level 24 Anion Gap 16 Blood Urea Nitrogen 42 H Creatinine 0.92 Glucose Level 88 Calcium Level 9.0 Phosphorus Level 2.4 L Magnesium Level 2.4 Lab Scanned Report REFERENCE LAB Medications Medications Current Medications Ondansetron HCl (Zofran Inj) 4 mg Q6H PRN IV NAUSEA AND/OR VOMITING; Start at 00:00 Acetaminophen (Tylenol Tab) 650 mg Q6H PRN PO PAIN LEVEL 1-3 OR FEVER Last administered on 06/15/17 11:48; Admin Dose 650 MG; Start 06/10/17 at 00:00 Morphine Sulfate (morphine) 1 mg Q4H PRN IV PAIN LEVEL 7-10 Last administered on 06/13/17 04:34; Admin Dose 1 MG; Start 06/10/17 at 00:00 Pantoprazole (Protonix Iv) 40 mg DAILY@06 IV Last administered on 06/16/17 05: 54; Admin Dose 40 MG; Start 06/10/17 at 06:00 Levothyroxine Sodium (Synthroid) 100 mcg DAILY@06 PO Last administered on 05:55; Admin Dose 100 MCG; Start 06/10/17 at 06:00 Multivitamins Therapeutic (Theragran) 1 tab DAILY PO Last administered on 09:21; Admin Dose 1 TAB; Start 06/10/17 at 09:00 Dimethicone 1 applic 1 applic Q2H PRN TOP dry lips. Last administered on 11:48; Admin Dose 1 APPLIC; Start 06/11/17 at 09:00 Vancomycin HCl/ Sodium Chloride (Vancocin/NS) 150 ml @ 75 mls/hr Q36H IVPB Last administered on 06/15/17 15:26; Admin Dose 75 MLS/HR; Start 06/15/17 at 15 :00 DARBY BALTAZAR Jun 16, 2017 16:39
[2017-06-16 20:02] VITALS: BP 99/63; RESP 18
--- NOTE | 2017-06-16 22:43 | RADRPT ---
PROCEDURE: XR Chest. CLINICAL INDICATION: Left pleural effusion. TECHNIQUE: Single frontal view of the chest. COMPARISON: 01/18/2014. FINDINGS: Large left pleural effusion with near complete collapse left lung. There is mediastinal and cardiac shift to the right. The cardiac silhouette is otherwise obscured. Small right pleural effusion. No signs of pleural fluid or pneumothorax are seen. The osseous structures and soft tissues are unre markable. IMPRESSION: Large left pleural effusion with near complete collapse of the left lung, new over the interval. RPTAT: [facility] Physician Vicky Date Time Electronically viewed and signed by Physician Vicky on 06/16/2017 22:42 RS/
[2017-06-17] MEDS: ONDANSETRON 4 MG INJ IV PRN (00:40)
[2017-06-17 02:06] VITALS: BP 94/64; RESP 17
[2017-06-17] MEDS: VANCOMYCIN 750 MG in SOD CHLORIDE 0.9% 150 ML IVPB SCH (02:10)
[2017-06-17] MEDS: PANTOPRAZOLE 40 MG INJ IV SCH (05:05)
[2017-06-17] MEDS: LEVOTHYROXINE 100 MCG TAB PO SCH (05:06)
[2017-06-17 07:15] VITALS: BP 105/64; RESP 20
[2017-06-17] MEDS: MULTIVITAMINS THERAPEUTIC TAB PO SCH (09:00)
[2017-06-17] MEDS: ALBUTEROL 0.083% (NEB) 2.5 MG/3 ML AMP HHN SCH ×3 (09:11→20:00)
[2017-06-17 14:04] VITALS: BP 101/71; RESP 18
--- NOTE | 2017-06-17 14:11 | PN ---
Date/Time of Note Date/Time of Note DATE: 06/17/17 TIME: 14:05 Assessment/Plan VTE Prophylaxis VTE Prophylaxis Intervention: SCD's Lines/Catheters IV [facility]from [facility] Saline Lock Urinary Cath still in place: No Assessment/Plan Chief Complaint/Hosp Course Assessment and plan 1. Acute hypoxic respiratory failure secondary to pleural effusion. Patient status post left-sided thoracentesis on June 10, 2017 as well as June 13, 2017. Upholsterer Assembly Line following. Continue the recommendations. Patient refusing Pleurx catheter at this time. Will monitor for now. 2. Left-sided pleural effusion recurrent. Again with noted left large pleural effusion. Follow-up with pulmonology for further intervention and recommendation 3. Sepsis secondary to suspected left-sided pneumonia. Continue antibiotics. 4. Hypotension suspect secondary to #3. Status post IV fluids. Stable at present. Will monitor for now. 5. GATO. Monitor renal panel. Medications to be renally dosed. 6. History of breast cancer. Patient status post left-sided radical mastectomy. Patient for outpatient follow 7. Protein calorie malnutrition. Continue dietary supplements 8. Hypothyroidism. Continue on Synthroid DVT prophylaxis: SCDs Disposition and plan: Again noted with large left pleural effusion. Follow-up with pulmonology for thoracentesis versus Pleurx catheter. Continue inpatient monitoring for now Discussed plan of care with Dr. Rayo. Problems: Subjective 24 Hr Interval Summary Free Text/Dictation Shortness of breath. Noted with some dyspnea on exertion. Exam/Review of Systems Vital Signs Vitals Vital Signs Date Time Temp Pulse Resp B/P Pulse Ox O2 Delivery O2 Flow Rate FiO2 06/17/17 11:42 Nasal Cannula 4.0 06/17/17 07:15 98.1 101 20 105/64 97 Intake and Output 06/16/17 06/16/17 06/17/17 15:00 23:00 07:00 Intake Total 1160 ml 600 ml Balance 1160 ml 600 ml Exam Constitutional: alert, oriented Head: normocephalic Neck: supple Respiratory: diminished breath sounds (left lung field) Cardiovascular: regular rate and rhythm Gastrointestinal: non-tender, soft Extremities: edema (ble ) Neurological: FLIGHT SURVEYOR II-XII intact, nl mental status, nl speech Results Result Diagram: 06/15/17 1350 06/16/17 0545 Medications Medications Current Medications Ondansetron HCl (Zofran Inj) 4 mg Q6H PRN IV NAUSEA AND/OR VOMITING Last administered on 06/17/17 00:40; Admin Dose 4 MG; Start 06/10/17 at 00:00 Acetaminophen (Tylenol Tab) 650 mg Q6H PRN PO PAIN LEVEL 1-3 OR FEVER Last administered on 06/15/17 11:48; Admin Dose 650 MG; Start 06/10/17 at 00:00 Morphine Sulfate (morphine) 1 mg Q4H PRN IV PAIN LEVEL 7-10 Last administered on 06/13/17 04:34; Admin Dose 1 MG; Start 06/10/17 at 00:00 Pantoprazole (Protonix Iv) 40 mg DAILY@06 IV Last administered on 06/17/17 05: 05; Admin Dose 40 MG; Start 06/10/17 at 06:00 Levothyroxine Sodium (Synthroid) 100 mcg DAILY@06 PO Last administered on 05:55; Admin Dose 100 MCG; Start 06/10/17 at 06:00 Multivitamins Therapeutic (Theragran) 1 tab DAILY PO Last administered on 09:21; Admin Dose 1 TAB; Start 06/10/17 at 09:00 Dimethicone 1 applic 1 applic Q2H PRN TOP dry lips. Last administered on 11:48; Admin Dose 1 APPLIC; Start 06/11/17 at 09:00 Vancomycin HCl/ Sodium Chloride (Vancocin/NS) 150 ml @ 75 mls/hr Q36H IVPB Last administered on 06/17/17 02:10; Admin Dose 75 MLS/HR; Start 06/15/17 at 15 :00 DARBY BALTAZAR Jun 17, 2017 14:11
--- NOTE | 2017-06-17 15:10 | CONS ---
Date/Time of Note Date/Time of Note DATE: 06/17/17 TIME: 15:00 Assessment/Plan Assessment/Plan Additional Assessment/Plan Chest x-ray was reviewed from 19 of this month which is showing extensive left pleural effusion. Assessment recommendations; 1. Patient admitted for recurrent left pleural effusion status post 2 thoracentesis with rapid recommendation of fluid. Etiology is unclear at this point. Patient has agreed for placement of Pleurx catheter. Meanwhile continue current treatment. I had a very detailed discussion the patient as well as her son who was present in the room about catheter placement. Consultation Date/Type/Reason Admit Date/Time Jun 10, 2017 at 00:01 Initial Consult Date 06/13/17 Type of Consultation: Pulmonary Reason for Consultation Patient condition stable. Complains of very minimal shortness of breath. Denies any chest pain, wheezing, cough or sputum production. General exam; elderly woman, awake alert currently in no distress. Appears quite emaciated. Exam/Review of Systems Vital Signs Vitals Vital Signs Date Time Temp Pulse Resp B/P Pulse Ox O2 Delivery O2 Flow Rate FiO2 06/17/17 14:04 98.0 100 18 101/71 96 06/17/17 11:42 Nasal Cannula 4.0 Intake and Output 06/16/17 06/16/17 06/17/17 15:00 23:00 07:00 Intake Total 1160 ml 600 ml Balance 1160 ml 600 ml Exam HEENT exam; supple neck, no JVD. No lymphadenopathy. Midline trachea. No thyromegaly. Pupils are midsize and reactive to light. There is a well-healed upper sternal scar present. Chest exam; diminished breath sounds entire left lung. Right lung is fairly clear. S1-S2 audible, no murmurs. Regular rhythm. Abdomen exam; soft, nondistended. Scaphoid. Bowel sounds audible. Extremity exam; no peripheral edema. Patient has a multiple ecchymosis involving all 4 extremities. PYROTECHNIC MIXER exam; no focal deficit. Results Result Diagram: 06/15/17 1350 06/16/17 0545 Medications Medications Current Medications Ondansetron HCl (Zofran Inj) 4 mg Q6H PRN IV NAUSEA AND/OR VOMITING Last administered on 06/17/17t 00:40; Admin Dose 4 MG; Start 06/10/17 at 00:00 Acetaminophen (Tylenol Tab) 650 mg Q6H PRN PO PAIN LEVEL 1-3 OR FEVER Last administered on 06/15/17 11:48; Admin Dose 650 MG; Start 06/10/17 at 00:00 Morphine Sulfate (morphine) 1 mg Q4H PRN IV PAIN LEVEL 7-10 Last administered on 06/13/17 04:34; Admin Dose 1 MG; Start 06/10/17 at 00:00 Pantoprazole (Protonix Iv) 40 mg DAILY@06 IV Last administered on 06/17/17 05: 05; Admin Dose 40 MG; Start 06/10/17 at 06:00 Levothyroxine Sodium (Synthroid) 100 mcg DAILY@06 PO Last administered on 05:55; Admin Dose 100 MCG; Start 06/10/17 at 06:00 Multivitamins Therapeutic (Theragran) 1 tab DAILY PO Last administered on 09:21; Admin Dose 1 TAB; Start 06/10/17 at 09:00 Dimethicone 1 applic 1 applic Q2H PRN TOP dry lips. Last administered on 11:48; Admin Dose 1 APPLIC; Start 06/11/17 at 09:00 Vancomycin HCl/ Sodium Chloride (Vancocin/NS) 150 ml @ 75 mls/hr Q36H IVPB Last administered on 06/17/17 02:10; Admin Dose 75 MLS/HR; Start 06/15/17 at 15 :00 OMI SPENCE Jun 17, 2017 15:10
[2017-06-17] MEDS: FUROSEMIDE 20 MG INJ IV SCH (16:01)
--- NOTE | 2017-06-17 16:05 | CONS ---
Date/Time of Note Date/Time of Note DATE: 06/17/17 TIME: 16:04 Assessment/Plan Assessment/Plan Chief Complaint/Hosp Course No acute changes overnight. No fevers Microbiology: Blood cultures on admission grew staph aureus and alpha hemolytic strep species Antibiotics: Vancomycin Allergies: Penicillins, sulfa Physical examination: This is a cachectic chronically ill-appearing elderly woman who is awake in no distress. Head atraumatic normocephalic nonicteric mucosa dry. Neck is supple. Chest rise symmetrical, breath sounds diminished basis. Heart S1-S2 abdomen soft bowel tones but equal bilateral edema skin multiple ecchymotic areas, patient has a left chest birthmark Assessment: 1. Status post sepsis with shock 2. Polymicrobial bacteremia 3. Acute hypoxemic respiratory failure 4. Recurrent malignant left pleural effusion, status post thoracentesis on June 10, 2017 5. History of breast cancer status post left mastectomy 6. Cachexia 7. DNR status Plan: Remains unchanged, repeat blood cultures negative, continue IV vancomycin until June 26 to complete treatment for bacteremia, pending Pleurx Discussed with Problems: Consultation Date/Type/Reason Admit Date/Time Jun 10, 2017 at 00:01 Initial Consult Date 06/13/17 Type of Consultation: id Exam/Review of Systems Vital Signs Vitals Vital Signs Date Time Temp Pulse Resp B/P Pulse Ox O2 Delivery O2 Flow Rate FiO2 06/17/17 14:04 98.0 100 18 101/71 96 06/17/17 11:42 Nasal Cannula 4.0 Intake and Output 06/16/17 06/16/17 06/17/17 15:00 23:00 07:00 Intake Total 1160 ml 600 ml Balance 1160 ml 600 ml Results Result Diagram: 06/15/17 1350 06/16/17 0545 Medications Medications Current Medications Ondansetron HCl (Zofran Inj) 4 mg Q6H PRN IV NAUSEA AND/OR VOMITING Last administered on 06/17/17 00:40; Admin Dose 4 MG; Start 06/10/17 at 00:00 Acetaminophen (Tylenol Tab) 650 mg Q6H PRN PO PAIN LEVEL 1-3 OR FEVER Last administered on 06/15/17 11:48; Admin Dose 650 MG; Start 06/10/17 at 00:00 Morphine Sulfate (morphine) 1 mg Q4H PRN IV PAIN LEVEL 7-10 Last administered on 06/13/17 04:34; Admin Dose 1 MG; Start 06/10/17 at 00:00 Pantoprazole (Protonix Iv) 40 mg DAILY@06 IV Last administered on 06/17/17 05: 05; Admin Dose 40 MG; Start 06/10/17 at 06:00 Levothyroxine Sodium (Synthroid) 100 mcg DAILY@06 PO Last administered on 05:55; Admin Dose 100 MCG; Start 06/10/17 at 06:00 Multivitamins Therapeutic (Theragran) 1 tab DAILY PO Last administered on 09:21; Admin Dose 1 TAB; Start 06/10/17 at 09:00 Dimethicone 1 applic 1 applic Q2H PRN TOP dry lips. Last administered on 11:48; Admin Dose 1 APPLIC; Start 06/11/17 at 09:00 Vancomycin HCl/ Sodium Chloride (Vancocin/NS) 150 ml @ 75 mls/hr Q36H IVPB Last administered on 06/17/17 02:10; Admin Dose 75 MLS/HR; Start 06/15/17 at 15 :00 SWAPNA CRYSTAL NP Jun 17, 2017 16:05
[2017-06-17 20:00] VITALS: BP 100/50; RESP 20
[2017-06-18] MEDS: FUROSEMIDE 20 MG INJ IV SCH ×2 (05:18→18:06)
[2017-06-18] MEDS: PANTOPRAZOLE 40 MG INJ IV SCH (05:18)
[2017-06-18] MEDS: LEVOTHYROXINE 100 MCG TAB PO SCH (05:22)
[2017-06-18 06:23] LABS: BASOPHILS % 0.1 % (0.0-2.0); CALCIUM 8.5 mg/dl (8.4-10.2); CREATININE 0.94 mg/dl (0.44-1.00); EOSINOPHILS # 0.1 10^3/ul (0.0-0.5); EOSINOPHILS % 0.4 % (0.0-7.0); HEMATOCRIT 47.6 % (37.0-47.0); HEMOGLOBIN 15.7 g/dl (12.0-16.0); LYMPHOCYTES # 0.8 10^3/ul (0.8-2.9); LYMPHOCYTES % 5.6 % (15.0-51.0); MEAN CORPUSCULAR HEMOGLOBIN 29.5 pg (29.0-33.0); MEAN CORPUSCULAR VOLUME 89.3 fl (82.0-101.0); MEAN PLATELET VOLUME 11.2 fl (7.4-10.4); MONOCYTE # 1.2 10^3/ul (0.3-0.9); MONOCYTES % 7.6 % (0.0-11.0); NEUTROPHIL # 12.9 10^3/ul (1.6-7.5); NEUTROPHILS % 85.4 % (39.0-77.0); PLATELET COUNT 118 10^3/UL (140-415); POTASSIUM 4.6 mmol/L (3.5-5.1); RED BLOOD COUNT 5.33 10^6/ul (4.20-5.40); RED CELL DISTRIBUTION WIDTH 16.5 % (11.5-14.5); WHITE BLOOD COUNT 15.1 10^3/ul (4.8-10.8)
[2017-06-18 07:20] VITALS: BP 121/63; RESP 18
[2017-06-18 07:41] LABS: POSITIVE DIFF @See below
[2017-06-18] MEDS: ALBUTEROL 0.083% (NEB) 2.5 MG/3 ML AMP HHN SCH ×3 (08:00→20:00)
--- NOTE | 2017-06-18 08:25 | CONS ---
Date/Time of Note Date/Time of Note DATE: 06/18/17 TIME: 08:24 Consultation Date/Type/Reason Admit Date/Time Jun 10, 2017 at 00:01 Initial Consult Date 06/13/17 Type of Consultation: Palliative care 24 HR Interval Summary Free Text/Dictation We will continue to support patient's decision for ongoing level of care. Subjective hx not possible: pt non-verbal Exam/Review of Systems Vital Signs Vitals Vital Signs Date Time Temp Pulse Resp B/P Pulse Ox O2 Delivery O2 Flow Rate FiO2 06/18/17 06:49 4.0 06/17/17 20:00 Nasal Cannula 06/17/17 20:00 97.5 100 20 100/50 100 Intake and Output 06/17/17 06/17/17 06/18/17 15:00 23:00 07:00 Intake Total 850 ml 420 ml Output Total 600 ml Balance 850 ml -180 ml Results Result Diagram: 06/18/17 0431 06/18/17 0431 Results 24 hrs Laboratory Tests Test 06/18/17 04:31 White Blood Count 15.1 H Red Blood Count 5.33 Hemoglobin 15.7 Hematocrit 47.6 H Mean Corpuscular Volume 89.3 Mean Corpuscular Hemoglobin 29.5 Mean Corpuscular Hemoglobin Concent 33.0 Red Cell Distribution Width 16.5 H Platelet Count 118 L Mean Platelet Volume 11.2 H Neutrophils % 85.4 H Lymphocytes % 5.6 L Monocytes % 7.6 Eosinophils % 0.4 Basophils % 0.1 Nucleated Red Blood Cells % 0.0 Neutrophils # 12.9 H Lymphocytes # 0.8 Monocytes # 1.2 H Eosinophils # 0.1 Basophils # 0.0 Nucleated Red Blood Cells # 0.0 Sodium Level 144 Potassium Level 4.6 Chloride Level 111 H Carbon Dioxide Level 22 Anion Gap 16 Blood Urea Nitrogen 31 #H Creatinine 0.94 Glucose Level 101 Calcium Level 8.5 Medications Medications Current Medications Ondansetron HCl (Zofran Inj) 4 mg Q6H PRN IV NAUSEA AND/OR VOMITING Last administered on 06/17/17 00:40; Admin Dose 4 MG; Start 06/10/17 at 00:00 Acetaminophen (Tylenol Tab) 650 mg Q6H PRN PO PAIN LEVEL 1-3 OR FEVER Last administered on 06/15/17 11:48; Admin Dose 650 MG; Start 06/10/17 at 00:00 Morphine Sulfate (morphine) 1 mg Q4H PRN IV PAIN LEVEL 7-10 Last administered on 06/13/17 04:34; Admin Dose 1 MG; Start 06/10/17 at 00:00 Pantoprazole (Protonix Iv) 40 mg DAILY@06 IV Last administered on 06/18/17 05: 18; Admin Dose 40 MG; Start 06/10/17 at 06:00 Levothyroxine Sodium (Synthroid) 100 mcg DAILY@06 PO Last administered on 05:22; Admin Dose 100 MCG; Start 06/10/17 at 06:00 Multivitamins Therapeutic (Theragran) 1 tab DAILY PO Last administered on 09:21; Admin Dose 1 TAB; Start 06/10/17 at 09:00 Dimethicone 1 applic 1 applic Q2H PRN TOP dry lips. Last administered on 11:48; Admin Dose 1 APPLIC; Start 06/11/17 at 09:00 Vancomycin HCl/ Sodium Chloride (Vancocin/NS) 150 ml @ 75 mls/hr Q36H IVPB Last administered on 06/17/17 02:10; Admin Dose 75 MLS/HR; Start 06/15/17 at 15 :00 NATHALY HIGHTOWER Jun 18, 2017 08:25
[2017-06-18] MEDS: MULTIVITAMINS THERAPEUTIC TAB PO SCH (08:57)
--- NOTE | 2017-06-18 12:26 | CONS ---
Date/Time of Note Date/Time of Note DATE: 06/18/17 TIME: 12:23 Assessment/Plan Assessment/Plan Additional Assessment/Plan Assessment recommendations; 1. Patient admitted for shortness of breath discovered to have very large left pleural effusion which likely is malignant 2. Shortness of breath. 3. Generalized emaciation. Patient would benefit from therapeutic thoracentesis on the left side as the radiology department currently is under staffed over the weekend for placement of Pleurx catheter which likely will be done this coming Tuesday. I did have a detailed discussion with the patient's son over the phone and informed him of the procedure. The patient also is agreeable. Consultation Date/Type/Reason Admit Date/Time Jun 10, 2017 at 00:01 Initial Consult Date 06/13/17 Type of Consultation: Pulmonary 24 HR Interval Summary Free Text/Dictation Patient complaining of shortness of breath. Denies any chest pain, wheezing, cough or sputum production. General exam; elderly lady, awake alert currently in no distress. Exam/Review of Systems Vital Signs Vitals Vital Signs Date Time Temp Pulse Resp B/P Pulse Ox O2 Delivery O2 Flow Rate FiO2 06/18/17 08:00 4.0 06/18/17 08:00 Nasal Cannula 06/18/17 07:20 97.7 109 18 121/63 96 Intake and Output 06/17/17 06/17/17 06/18/17 15:00 23:00 07:00 Intake Total 850 ml 420 ml Output Total 600 ml Balance 850 ml -180 ml Exam HEENT exam; supple neck, no JVD. No lymphadenopathy. Midline trachea. No thyromegaly. Chest exam; absent breath sounds left lung. Right lung is clear to auscultation. S1-S2 audible, no murmurs. Regular rhythm. Abdomen exam; soft, no organomegaly. Bowel sounds audible. Extremity exam; no peripheral edema. PERSHING MISSILE CREWMEMBER exam; no focal deficit. Results Result Diagram: 06/18/17 0431 06/18/17 0431 Results 24 hrs Laboratory Tests Test 06/18/17 04:31 White Blood Count 15.1 H Red Blood Count 5.33 Hemoglobin 15.7 Hematocrit 47.6 H Mean Corpuscular Volume 89.3 Mean Corpuscular Hemoglobin 29.5 Mean Corpuscular Hemoglobin Concent 33.0 Red Cell Distribution Width 16.5 H Platelet Count 118 L Mean Platelet Volume 11.2 H Neutrophils % 85.4 H Lymphocytes % 5.6 L Monocytes % 7.6 Eosinophils % 0.4 Basophils % 0.1 Nucleated Red Blood Cells % 0.0 Neutrophils # 12.9 H Lymphocytes # 0.8 Monocytes # 1.2 H Eosinophils # 0.1 Basophils # 0.0 Nucleated Red Blood Cells # 0.0 Sodium Level 144 Potassium Level 4.6 Chloride Level 111 H Carbon Dioxide Level 22 Anion Gap 16 Blood Urea Nitrogen 31 #H Creatinine 0.94 Glucose Level 101 Calcium Level 8.5 Medications Medications Current Medications Ondansetron HCl (Zofran Inj) 4 mg Q6H PRN IV NAUSEA AND/OR VOMITING Last administered on 06/17/17 00:40; Admin Dose 4 MG; Start 06/10/17 at 00:00 Acetaminophen (Tylenol Tab) 650 mg Q6H PRN PO PAIN LEVEL 1-3 OR FEVER Last administered on 06/15/17 11:48; Admin Dose 650 MG; Start 06/10/17 at 00:00 Morphine Sulfate (morphine) 1 mg Q4H PRN IV PAIN LEVEL 7-10 Last administered on 06/13/17 04:34; Admin Dose 1 MG; Start 06/10/17 at 00:00 Pantoprazole (Protonix Iv) 40 mg DAILY@06 IV Last administered on 06/18/17 05: 18; Admin Dose 40 MG; Start 06/10/17 at 06:00 Levothyroxine Sodium (Synthroid) 100 mcg DAILY@06 PO Last administered on 05:22; Admin Dose 100 MCG; Start 06/10/17 at 06:00 Multivitamins Therapeutic (Theragran) 1 tab DAILY PO Last administered on 08:57; Admin Dose 1 TAB; Start 06/10/17 at 09:00 Dimethicone 1 applic 1 applic Q2H PRN TOP dry lips. Last administered on 11:48; Admin Dose 1 APPLIC; Start 06/11/17 at 09:00 Vancomycin HCl/ Sodium Chloride (Vancocin/NS) 150 ml @ 75 mls/hr Q36H IVPB Last administered on 06/17/17 02:10; Admin Dose 75 MLS/HR; Start 06/15/17 at 15 :00 OMI SPENCE Jun 18, 2017 12:25
--- NOTE | 2017-06-18 13:29 | PN ---
Date/Time of Note Date/Time of Note DATE: 06/18/17 TIME: 13:27 Assessment/Plan VTE Prophylaxis VTE Prophylaxis Intervention: SCD's Lines/Catheters IV [facility] Urinary Cath still in place: No Assessment/Plan Chief Complaint/Hosp Course Assessment and plan 1. Acute hypoxic respiratory failure secondary to pleural effusion. Patient status post left-sided thoracentesis on June 10, 2017 as well as June 13, 2017. Knife Setter Grinder Machine following. Continue the recommendations. Will monitor for now. 2. Left-sided pleural effusion recurrent. Again with noted left large pleural effusion. plan for Pleurx catheter 3. Sepsis secondary to suspected left-sided pneumonia. Continue antibiotics. 4. Hypotension suspect secondary to #3. Status post IV fluids. Stable at present. Will monitor for now. 5. GATO. Monitor renal panel. Medications to be renally dosed. 6. History of breast cancer. Patient status post left-sided radical mastectomy. Patient for outpatient follow 7. Protein calorie malnutrition. Continue dietary supplements 8. Hypothyroidism. Continue on Synthroid DVT prophylaxis: SCDs Disposition and plan: Patient was planned for Pleurx catheter placement however due to scheduling issue unable to. Tentative plan for therapeutic thoracentesis for now. Will follow up. Continue with biofuels processing technician recommendations Discussed plan of care with Dr. Rayo. Problems: Subjective 24 Hr Interval Summary Free Text/Dictation Reports more shortness of breath at this time. Exam/Review of Systems Vital Signs Vitals Vital Signs Date Time Temp Pulse Resp B/P Pulse Ox O2 Delivery O2 Flow Rate FiO2 06/18/17 08:00 4.0 06/18/17 08:00 Nasal Cannula 06/18/17 07:20 97.7 109 18 121/63 96 Intake and Output 06/17/17 06/17/17 06/18/17 15:00 23:00 07:00 Intake Total 850 ml 420 ml Output Total 600 ml Balance 850 ml -180 ml Exam Constitutional: alert, frail Psych: nl mood/affect Respiratory: diminished breath sounds (left lung field) Gastrointestinal: non-tender, soft Musculoskeletal: muscle weakness, No nl gait and stance Extremities: edema (ble) Neurological: nl mental status, nl speech Results Result Diagram: 06/18/17 0431 06/18/17 0431 Results 24 hrs Laboratory Tests Test 06/18/17 04:31 White Blood Count 15.1 H Red Blood Count 5.33 Hemoglobin 15.7 Hematocrit 47.6 H Mean Corpuscular Volume 89.3 Mean Corpuscular Hemoglobin 29.5 Mean Corpuscular Hemoglobin Concent 33.0 Red Cell Distribution Width 16.5 H Platelet Count 118 L Mean Platelet Volume 11.2 H Neutrophils % 85.4 H Lymphocytes % 5.6 L Monocytes % 7.6 Eosinophils % 0.4 Basophils % 0.1 Nucleated Red Blood Cells % 0.0 Neutrophils # 12.9 H Lymphocytes # 0.8 Monocytes # 1.2 H Eosinophils # 0.1 Basophils # 0.0 Nucleated Red Blood Cells # 0.0 Sodium Level 144 Potassium Level 4.6 Chloride Level 111 H Carbon Dioxide Level 22 Anion Gap 16 Blood Urea Nitrogen 31 #H Creatinine 0.94 Glucose Level 101 Calcium Level 8.5 Medications Medications Current Medications Ondansetron HCl (Zofran Inj) 4 mg Q6H PRN IV NAUSEA AND/OR VOMITING Last administered on 06/17/17 00:40; Admin Dose 4 MG; Start 06/10/17 at 00:00 Acetaminophen (Tylenol Tab) 650 mg Q6H PRN PO PAIN LEVEL 1-3 OR FEVER Last administered on 06/15/17 11:48; Admin Dose 650 MG; Start 06/10/17 at 00:00 Morphine Sulfate (morphine) 1 mg Q4H PRN IV PAIN LEVEL 7-10 Last administered on 06/13/17 04:34; Admin Dose 1 MG; Start 06/10/17 at 00:00 Pantoprazole (Protonix Iv) 40 mg DAILY@06 IV Last administered on 06/18/17 05: 18; Admin Dose 40 MG; Start 06/10/17 at 06:00 Levothyroxine Sodium (Synthroid) 100 mcg DAILY@06 PO Last administered on 05:22; Admin Dose 100 MCG; Start 06/10/17 at 06:00 Multivitamins Therapeutic (Theragran) 1 tab DAILY PO Last administered on 08:57; Admin Dose 1 TAB; Start 06/10/17 at 09:00 Dimethicone 1 applic 1 applic Q2H PRN TOP dry lips. Last administered on 11:48; Admin Dose 1 APPLIC; Start 06/11/17 at 09:00 Vancomycin HCl/ Sodium Chloride (Vancocin/NS) 150 ml @ 75 mls/hr Q36H IVPB Last administered on 06/17/17t 02:10; Admin Dose 75 MLS/HR; Start 06/15/17 at 15 :00 DARBY BALTAZAR Jun 18, 2017 13:29
--- NOTE | 2017-06-18 13:44 | EN ---
Date/Time of Note Date/Time of Note DATE: 06/18/17 TIME: 13:42 Event Note Medicine Medicine Event Note Procedure is left thoracentesis. Indications patient complaining of shortness of breath with the recommendation of very large left pleural effusion. Informed consent was obtained from the patient, she was sit up in the upright position. Left posterior chest wall was prepped in the usual sterile fashion. All sterile barrier precautions were undertaken. Topical anesthesia was achieved by using 4 mL of 1% lidocaine in seventh interspace in the mid scapular line posteriorly. A 23-gauge needle was used to inject the fluid, which also was used to track the pleural fluid which resulted in free flow of serosanguineous fluid.. This was followed by 0.2 cm incision followed by placement of an 8 Hebrew catheter in the left pleural space. A total of 1400 cc of serosanguineous fluid was drained via pump and syringe method. The procedure was well tolerated. There was very minimal bleeding if any of the puncture site. A chest x-ray been ordered. OMI SPENCE Jun 18, 2017 13:44
[2017-06-18 14:01] VITALS: BP 105/54; RESP 20
--- NOTE | 2017-06-18 14:19 | CONS ---
Date/Time of Note Date/Time of Note DATE: 06/18/17 TIME: 14:18 Assessment/Plan Assessment/Plan Chief Complaint/Hosp Course No acute changes overnight. Tachypneic with exertion, awake, no fevers Microbiology: Blood cultures on admission grew staph aureus and alpha hemolytic strep species Antibiotics: Vancomycin Allergies: Penicillins, sulfa Physical examination: This is a cachectic chronically ill-appearing elderly woman who is awake in no distress. Head atraumatic normocephalic nonicteric mucosa dry. Neck is supple. Chest rise symmetrical, breath sounds diminished basis. Heart S1-S2 abdomen soft bowel tones but equal bilateral edema skin multiple ecchymotic areas, patient has a left chest birthmark Assessment: 1. Status post sepsis with shock 2. Polymicrobial bacteremia 3. Acute hypoxemic respiratory failure 4. Recurrent malignant left pleural effusion, status post thoracentesis on June 10, 2017 5. History of breast cancer status post left mastectomy 6. Cachexia 7. DNR status Plan: Remains unchanged, repeat blood cultures negative, continue IV vancomycin until June 26 to complete treatment for bacteremia, pending Pleurx Discussed with RN Problems: Consultation Date/Type/Reason Admit Date/Time Jun 10, 2017 at 00:01 Initial Consult Date 06/13/17 Type of Consultation: id Exam/Review of Systems Vital Signs Vitals Vital Signs Date Time Temp Pulse Resp B/P Pulse Ox O2 Delivery O2 Flow Rate FiO2 06/18/17 14:01 97.3 94 20 105/54 93 06/18/17 08:00 4.0 06/18/17 08:00 Nasal Cannula Intake and Output 06/17/17 06/17/17 06/18/17 15:00 23:00 07:00 Intake Total 850 ml 420 ml Output Total 600 ml Balance 850 ml -180 ml Results Result Diagram: 06/18/17 0431 06/18/17 0431 Results 24 hrs Laboratory Tests Test 06/18/17 04:31 White Blood Count 15.1 H Red Blood Count 5.33 Hemoglobin 15.7 Hematocrit 47.6 H Mean Corpuscular Volume 89.3 Mean Corpuscular Hemoglobin 29.5 Mean Corpuscular Hemoglobin Concent 33.0 Red Cell Distribution Width 16.5 H Platelet Count 118 L Mean Platelet Volume 11.2 H Neutrophils % 85.4 H Lymphocytes % 5.6 L Monocytes % 7.6 Eosinophils % 0.4 Basophils % 0.1 Nucleated Red Blood Cells % 0.0 Neutrophils # 12.9 H Lymphocytes # 0.8 Monocytes # 1.2 H Eosinophils # 0.1 Basophils # 0.0 Nucleated Red Blood Cells # 0.0 Sodium Level 144 Potassium Level 4.6 Chloride Level 111 H Carbon Dioxide Level 22 Anion Gap 16 Blood Urea Nitrogen 31 #H Creatinine 0.94 Glucose Level 101 Calcium Level 8.5 Medications Medications Current Medications Ondansetron HCl (Zofran Inj) 4 mg Q6H PRN IV NAUSEA AND/OR VOMITING Last administered on 06/17/17 00:40; Admin Dose 4 MG; Start 06/10/17 at 00:00 Acetaminophen (Tylenol Tab) 650 mg Q6H PRN PO PAIN LEVEL 1-3 OR FEVER Last administered on 06/15/17 11:48; Admin Dose 650 MG; Start 06/10/17 at 00:00 Morphine Sulfate (morphine) 1 mg Q4H PRN IV PAIN LEVEL 7-10 Last administered on 06/13/17 04:34; Admin Dose 1 MG; Start 06/10/17 at 00:00 Pantoprazole (Protonix Iv) 40 mg DAILY@06 IV Last administered on 06/18/17 05: 18; Admin Dose 40 MG; Start 06/10/17 at 06:00 Levothyroxine Sodium (Synthroid) 100 mcg DAILY@06 PO Last administered on 05:22; Admin Dose 100 MCG; Start 06/10/17 at 06:00 Multivitamins Therapeutic (Theragran) 1 tab DAILY PO Last administered on 08:57; Admin Dose 1 TAB; Start 06/10/17 at 09:00 Dimethicone 1 applic 1 applic Q2H PRN TOP dry lips. Last administered on 11:48; Admin Dose 1 APPLIC; Start 06/11/17 at 09:00 Vancomycin HCl/ Sodium Chloride (Vancocin/NS) 150 ml @ 75 mls/hr Q36H IVPB Last administered on 06/17/17 02:10; Admin Dose 75 MLS/HR; Start 06/15/17 at 15 :00 SWAPNA CRYSTAL NP Jun 18, 2017 14:19
[2017-06-18] MEDS: VANCOMYCIN 750 MG in SOD CHLORIDE 0.9% 150 ML IVPB SCH (16:05)
[2017-06-18] MEDS: ONDANSETRON 4 MG INJ IV PRN (16:05)
--- NOTE | 2017-06-18 19:07 | RADRPT ---
PROCEDURE: XR Chest. CLINICAL INDICATION: Shortness of breath. Left pleural effusion. TECHNIQUE: Single frontal view. COMPARISON: 06/16/2017. FINDINGS: There is a large left pleural effusion, slightly larger than seen previously. There is associated c ollapse of most of the left lung and shift of the mediastinum to the right. There is a very small r ight pleural effusion and mild right basilar atelectasis. The heart size cannot be determined. There is no pneumothorax. IMPRESSION: 1. Larger left pleural effusion and worse appearance of the left lung. 2. Mild right basilar atelectasis and very small right pleural effusion. RPTAT: QQ .Christiano Jimenes MD, MD Date Time Electronically viewed and signed by .Christiano Jimenes MD, MD on 06/18/2017 19:07 .R/
--- NOTE | 2017-06-18 19:45 | RADRPT ---
PROCEDURE: XR Chest. CLINICAL INDICATION: Shortness of breath. Post left thoracentesis. TECHNIQUE: Single frontal view. COMPARISON: Prior study done earlier the same day. FINDINGS: Previously noted left pleural effusion is now smaller. There is improved aeration of the left lung. However, most of the left lung remains collapsed with only minimal aeration of the left upper lobe . Previously noted shift of mediastinum to the right is no longer present. There is a very small r ight pleural effusion and mild right basilar atelectasis, unchanged. The heart size cannot be determined. There is no pneumothorax. IMPRESSION: 1. No pneumothorax following left thoracentesis. 2. Slightly improved appearance of the left lung and slightly smaller left pleural effusion. RPTAT: QQ .Christiano Jimenes MD, MD Date Time Electronically viewed and signed by .Christiano Jimenes MD, MD on 06/18/2017 19:45 .R/
[2017-06-18 20:00] VITALS: BP 104/65; RESP 18
[2017-06-19 02:00] VITALS: BP 101/58; RESP 17
[2017-06-19] MEDS: LEVOTHYROXINE 100 MCG TAB PO SCH ×2 (05:11→08:11)
[2017-06-19] MEDS: FUROSEMIDE 20 MG INJ IV SCH ×2 (05:13→17:19)
[2017-06-19] MEDS: PANTOPRAZOLE 40 MG INJ IV SCH (05:14)
[2017-06-19] MEDS: ALBUTEROL 0.083% (NEB) 2.5 MG/3 ML AMP HHN SCH ×3 (07:57→20:00)
[2017-06-19] MEDS: MULTIVITAMINS THERAPEUTIC TAB PO SCH (08:10)
[2017-06-19 08:59] VITALS: BP 104/55; RESP 17
--- NOTE | 2017-06-19 09:40 | PN ---
Date/Time of Note Date/Time of Note DATE: 06/19/17 TIME: 09:38 Assessment/Plan VTE Prophylaxis VTE Prophylaxis Intervention: SCD's Lines/Catheters IV [facility]ter Type [facility]from [facility] Saline Lock Urinary Cath still in place: No Assessment/Plan Chief Complaint/Hosp Course Assessment and plan 1. Acute hypoxic respiratory failure secondary to pleural effusion. Patient status post left-sided thoracentesis on June 10, 2017 as well as June 13, 2017 and June 18, 2017. Animal Taxonomist following. Continue the recommendations. Tentative plan for Pleurx catheter placement 2. Left-sided pleural effusion recurrent. Again with noted left large pleural effusion. Malignant etiology. Patient refusing to see any oncologist despite medical advice. Plan for Pleurx catheter placement 3. Sepsis secondary to suspected left-sided pneumonia. Continue antibiotics. 4. Hypotension suspect secondary to #3. Status post IV fluids. Stable at present. Will monitor for now. 5. GATO. Monitor renal panel. Medications to be renally dosed. 6. History of breast cancer. Patient status post left-sided radical mastectomy. Patient for outpatient follow 7. Protein calorie malnutrition. Continue dietary supplements 8. Hypothyroidism. Continue on Synthroid DVT prophylaxis: SCDs Disposition and plan: Patient refusing to see any oncologist. Tentative plan for Pleurx catheter placement. Discussed plan of care with Dr. Rayo. Problems: Subjective 24 Hr Interval Summary Free Text/Dictation Agitated during visit. No signs or symptoms of respiratory distress seen. Exam/Review of Systems Vital Signs Vitals Vital Signs Date Time Temp Pulse Resp B/P Pulse Ox O2 Delivery O2 Flow Rate FiO2 06/19/17 09:12 Nasal Cannula 3.0 06/19/17 08:59 97.4 104 17 104/55 98 Intake and Output 06/18/17 06/18/17 06/19/17 15:00 23:00 07:00 Intake Total 1030 ml 240 ml Output Total 1000 ml Balance 1030 ml -760 ml Exam Constitutional: alert, frail Psych: Anxious Respiratory: diminished breath sounds (left lung field) Gastrointestinal: non-tender, soft Musculoskeletal: muscle weakness, No nl gait and stance Extremities: edema (ble) Neurological: nl mental status, nl speech Results Result Diagram: 06/18/17 04306/18/17 0431 Medications Medications Current Medications Ondansetron HCl (Zofran Inj) 4 mg Q6H PRN IV NAUSEA AND/OR VOMITING Last administered on 06/18/17 16:05; Admin Dose 4 MG; Start 06/10/17 at 00:00 Acetaminophen (Tylenol Tab) 650 mg Q6H PRN PO PAIN LEVEL 1-3 OR FEVER Last administered on 06/15/17 11:48; Admin Dose 650 MG; Start 06/10/17 at 00:00 Morphine Sulfate (morphine) 1 mg Q4H PRN IV PAIN LEVEL 7-10 Last administered on 06/13/17 04:34; Admin Dose 1 MG; Start 06/10/17 at 00:00 Pantoprazole (Protonix Iv) 40 mg DAILY@06 IV Last administered on 06/19/17 05: 14; Admin Dose 40 MG; Start 06/10/17 at 06:00 Levothyroxine Sodium (Synthroid) 100 mcg DAILY@06 PO Last administered on 08:11; Admin Dose 100 MCG; Start 06/10/17 at 06:00 Multivitamins Therapeutic (Theragran) 1 tab DAILY PO Last administered on 08:10; Admin Dose 1 TAB; Start 06/10/17 at 09:00 Dimethicone 1 applic 1 applic Q2H PRN TOP dry lips. Last administered on 11:48; Admin Dose 1 APPLIC; Start 06/11/17 at 09:00 Vancomycin HCl/ Sodium Chloride (Vancocin/NS) 150 ml @ 75 mls/hr Q36H IVPB Last administered on 06/18/17 16:05; Admin Dose 75 MLS/HR; Start 06/15/17 at 15 :00 DARBY BALTAZAR Jun 19, 2017 09:40
--- NOTE | 2017-06-19 12:14 | CONS ---
Date/Time of Note Date/Time of Note DATE: 06/19/17 TIME: 12:12 Assessment/Plan Assessment/Plan Additional Assessment/Plan Assessment recommendations; 1. Patient admitted with shortness of breath due to very large left pleural effusion status post thoracentesis yesterday with significant improvement in shortness of breath. 2. Generalized emaciation. Patient awaiting Pleurx catheter placement tomorrow. Prognosis is poor. Consultation Date/Type/Reason Admit Date/Time Jun 10, 2017 at 00:01 Initial Consult Date 06/13/17 Type of Consultation: Pulmonary 24 HR Interval Summary Free Text/Dictation Patient condition is improved after undergoing left thoracentesis yesterday afternoon. Denies any chest pain, fever, chest pain, sputum production. General exam; elderly woman, awake alert currently in no distress. Exam/Review of Systems Vital Signs Vitals Vital Signs Date Time Temp Pulse Resp B/P Pulse Ox O2 Delivery O2 Flow Rate FiO2 06/19/17 09:12 Nasal Cannula 3.0 06/19/17 08:59 97.4 104 17 104/55 98 Intake and Output 06/18/17 06/18/17 06/19/17 15:00 23:00 07:00 Intake Total 1030 ml 240 ml Output Total 1000 ml Balance 1030 ml -760 ml Exam HEENT exam; supple neck, no JVD. No lymphadenopathy. Midline trachea. No thyromegaly. Patient has fair dentition. Chest exam; diminished breath sound left lung. Right lung is clear to auscultation. S1-S2 audible, no murmurs. Regular rhythm. Abdomen exam; soft, no organomegaly. Bowel sounds audible. Extremity exam; no peripheral edema. PROCEDURE ANALYST exam; no focal deficit. Results Result Diagram: 06/18/17 0431 06/18/17 0431 Medications Medications Current Medications Ondansetron HCl (Zofran Inj) 4 mg Q6H PRN IV NAUSEA AND/OR VOMITING Last administered on 06/18/17 16:05; Admin Dose 4 MG; Start 06/10/17 at 00:00 Acetaminophen (Tylenol Tab) 650 mg Q6H PRN PO PAIN LEVEL 1-3 OR FEVER Last administered on 06/15/17 11:48; Admin Dose 650 MG; Start 06/10/17 at 00:00 Morphine Sulfate (morphine) 1 mg Q4H PRN IV PAIN LEVEL 7-10 Last administered on 06/13/17 04:34; Admin Dose 1 MG; Start 06/10/17 at 00:00 Pantoprazole (Protonix Iv) 40 mg DAILY@06 IV Last administered on 06/19/17 05: 14; Admin Dose 40 MG; Start 06/10/17 at 06:00 Levothyroxine Sodium (Synthroid) 100 mcg DAILY@06 PO Last administered on 08:11; Admin Dose 100 MCG; Start 06/10/17 at 06:00 Multivitamins Therapeutic (Theragran) 1 tab DAILY PO Last administered on 08:10; Admin Dose 1 TAB; Start 06/10/17 at 09:00 Dimethicone 1 applic 1 applic Q2H PRN TOP dry lips. Last administered on 11:48; Admin Dose 1 APPLIC; Start 06/11/17 at 09:00 Vancomycin HCl/ Sodium Chloride (Vancocin/NS) 150 ml @ 75 mls/hr Q36H IVPB Last administered on 06/18/17 16:05; Admin Dose 75 MLS/HR; Start 06/15/17 at 15 :00 OMI SPENCE Jun 19, 2017 12:14
[2017-06-19] MEDS: ONDANSETRON 4 MG INJ IV PRN (15:04)
--- NOTE | 2017-06-19 15:28 | CONS ---
Date/Time of Note Date/Time of Note DATE: 06/19/17 TIME: 15:27 Assessment/Plan Assessment/Plan Chief Complaint/Hosp Course No acute changes overnight, awake, looks comfortable, no fevers Microbiology: Blood cultures on admission grew staph aureus and alpha hemolytic strep species Antibiotics: Vancomycin Allergies: Penicillins, sulfa Physical examination: This is a cachectic chronically ill-appearing elderly woman who is awake in no distress. Head atraumatic normocephalic nonicteric mucosa dry. Neck is supple. Chest rise symmetrical, breath sounds diminished basis. Heart S1-S2 abdomen soft bowel tones but equal bilateral edema skin multiple ecchymotic areas, patient has a left chest birthmark Assessment: 1. Status post sepsis with shock 2. Polymicrobial bacteremia 3. Acute hypoxemic respiratory failure 4. Recurrent malignant left pleural effusion, status post thoracentesis on June 10, 2017 5. History of breast cancer status post left mastectomy 6. Cachexia 7. DNR status Plan: Remains unchanged, repeat blood cultures negative, continue IV vancomycin until June 26 to complete treatment for bacteremia, pending Pleurx Discussed with RN Problems: Consultation Date/Type/Reason Admit Date/Time Jun 10, 2017 at 00:01 Initial Consult Date 06/13/17 Type of Consultation: id Exam/Review of Systems Vital Signs Vitals Vital Signs Date Time Temp Pulse Resp B/P Pulse Ox O2 Delivery O2 Flow Rate FiO2 06/19/17 14:52 4.0 06/19/17 09:12 Nasal Cannula 06/19/17 08:59 97.4 104 17 104/55 98 Intake and Output 06/18/17 06/18/17 06/19/17 15:00 23:00 07:00 Intake Total 1030 ml 240 ml Output Total 1000 ml Balance 1030 ml -760 ml Results Result Diagram: 06/18/17 0431 06/18/17 0431 Medications Medications Current Medications Ondansetron HCl (Zofran Inj) 4 mg Q6H PRN IV NAUSEA AND/OR VOMITING Last administered on 06/19/17 15:04; Admin Dose 4 MG; Start 06/10/17 at 00:00 Acetaminophen (Tylenol Tab) 650 mg Q6H PRN PO PAIN LEVEL 1-3 OR FEVER Last administered on 06/15/17 11:48; Admin Dose 650 MG; Start 06/10/17 at 00:00 Morphine Sulfate (morphine) 1 mg Q4H PRN IV PAIN LEVEL 7-10 Last administered on 06/13/17 04:34; Admin Dose 1 MG; Start 06/10/17 at 00:00 Pantoprazole (Protonix Iv) 40 mg DAILY@06 IV Last administered on 06/19/17 05: 14; Admin Dose 40 MG; Start 06/10/17 at 06:00 Levothyroxine Sodium (Synthroid) 100 mcg DAILY@06 PO Last administered on 08:11; Admin Dose 100 MCG; Start 06/10/17 at 06:00 Multivitamins Therapeutic (Theragran) 1 tab DAILY PO Last administered on 08:10; Admin Dose 1 TAB; Start 06/10/17 at 09:00 Dimethicone 1 applic 1 applic Q2H PRN TOP dry lips. Last administered on 11:48; Admin Dose 1 APPLIC; Start 06/11/17 at 09:00 Vancomycin HCl/ Sodium Chloride (Vancocin/NS) 150 ml @ 75 mls/hr Q36H IVPB Last administered on 06/18/17 16:05; Admin Dose 75 MLS/HR; Start 06/15/17 at 15 :00 Miscellaneous Information (*Rx Drug Level Order Reminder*) VANCOMYCIN TROUGH AT 0200 ONCE ONCE XX ; Start 06/20/17 at 02:00; Stop 06/20/17 at 02:01 SWAPNA CRYSTAL NP Jun 19, 2017 15:28
[2017-06-19 15:33] VITALS: BP 97/54; RESP 17
[2017-06-19 20:00] VITALS: BP 92/52; RESP 17
[2017-06-20] VITALS (24 sets, daily range): BP systolic 84–116; BP diastolic 50–64; PULSE 104–119; RESP 13–20
[2017-06-20] MEDS: VANCOMYCIN 750 MG in SOD CHLORIDE 0.9% 150 ML IVPB SCH (04:04)
[2017-06-20] MEDS: PANTOPRAZOLE 40 MG INJ IV SCH (05:16)
[2017-06-20] MEDS: FUROSEMIDE 20 MG INJ IV SCH ×2 (05:16→17:40)
[2017-06-20] MEDS: ALBUTEROL 0.083% (NEB) 2.5 MG/3 ML AMP HHN SCH ×3 (08:00→20:00)
[2017-06-20] MEDS: MULTIVITAMINS THERAPEUTIC TAB PO SCH (09:00)
[2017-06-20] MEDS: FENTAnyl 50 MCG/ML VIAL ONE ×2 (10:11→10:28)
[2017-06-20] MEDS: MIDAZOLAM 1 MG/ML 2 ML INJ ONE ×2 (10:13→10:28)
[2017-06-20] MEDS: SOD CHLORIDE 0.9% 500 ML ONE ×2 (10:28→10:30)
[2017-06-20] MEDS: LIDOCAINE 1% (MDV) 20 ML INJ ONE ×2 (10:29→10:35)
--- NOTE | 2017-06-20 11:19 | PN ---
Date/Time of Note Date/Time of Note DATE: 06/20/17 TIME: 11:11 Assessment/Plan VTE Prophylaxis VTE Prophylaxis Intervention: SCD's Lines/Catheters IV [facility] Saline Lock Urinary Cath still in place: No Assessment/Plan Chief Complaint/Hosp Course Assessment and plan 1. Acute hypoxic respiratory failure secondary to pleural effusion. Patient status post left-sided thoracentesis on June 10, 2017 as well as June 13, 2017 and June 18, 2017. Manager Traffic following. Continue the recommendations. Tentative plan for Pleurx catheter placement 2. Left-sided pleural effusion recurrent. Again with noted left large pleural effusion. Malignant etiology. Patient refusing to see any oncologist despite medical advice. Plan for Pleurx catheter placement 3. Sepsis secondary to suspected left-sided pneumonia. Continue antibiotics. 4. Hypotension suspect secondary to #3. Status post IV fluids. Stable at present. Will monitor for now. 5. GATO. Monitor renal panel. Medications to be renally dosed. 6. History of breast cancer. Patient status post left-sided radical mastectomy. Patient for outpatient follow 7. Protein calorie malnutrition. Continue dietary supplements 8. Hypothyroidism. Continue on Synthroid DVT prophylaxis: SCDs Disposition and plan: patient for pleurx cather placement. Will follow up. Tentative plan for hospice meeting today Discussed plan of care with Dr. Watt Problems: Subjective 24 Hr Interval Summary Free Text/Dictation patient for pleurx catheter placement Exam/Review of Systems Vital Signs Vitals Vital Signs Date Time Temp Pulse Resp B/P Pulse Ox O2 Delivery O2 Flow Rate FiO2 06/20/17 08:38 4.0 06/20/17 08:00 97.5 113 16 94/55 95 06/19/17 20:00 Nasal Cannula Intake and Output 06/19/17 06/19/17 06/20/17 15:00 23:00 07:00 Intake Total 420 ml 350 ml Balance 420 ml 350 ml Exam patient for pleurx catheter placement Results Result Diagram: 06/18/17 0431 06/20/17 0552 Results 24 hrs Laboratory Tests Test 06/20/17 02:52 06/20/17 05:52 Vancomycin Level Trough 13.2 Blood Urea Nitrogen 33 H Creatinine 1.00 Medications Medications Current Medications Ondansetron HCl (Zofran Inj) 4 mg Q6H PRN IV NAUSEA AND/OR VOMITING Last administered on 06/19/17 15:04; Admin Dose 4 MG; Start 06/10/17 at 00:00 Acetaminophen (Tylenol Tab) 650 mg Q6H PRN PO PAIN LEVEL 1-3 OR FEVER Last administered on 06/15/17 11:48; Admin Dose 650 MG; Start 06/10/17 at 00:00 Morphine Sulfate (morphine) 1 mg Q4H PRN IV PAIN LEVEL 7-10 Last administered on 06/13/17 04:34; Admin Dose 1 MG; Start 06/10/17 at 00:00 Pantoprazole (Protonix Iv) 40 mg DAILY@06 IV Last administered on 06/20/17 05: 16; Admin Dose 40 MG; Start 06/10/17 at 06:00 Levothyroxine Sodium (Synthroid) 100 mcg DAILY@06 PO Last administered on 08:11; Admin Dose 100 MCG; Start 06/10/17 at 06:00 Multivitamins Therapeutic (Theragran) 1 tab DAILY PO Last administered on 08:10; Admin Dose 1 TAB; Start 06/10/17 at 09:00 Dimethicone 1 applic 1 applic Q2H PRN TOP dry lips. Last administered on 11:48; Admin Dose 1 APPLIC; Start 06/11/17 at 09:00 Vancomycin HCl/ Sodium Chloride (Vancocin/NS) 150 ml @ 75 mls/hr Q36H IVPB Last administered on 06/20/17 04:04; Admin Dose 75 MLS/HR; Start 06/15/17 at 15 :00 DARBY BALTAZAR Jun 20, 2017 11:19
--- NOTE | 2017-06-20 13:37 | CONS ---
Date/Time of Note Date/Time of Note DATE: 06/20/17 TIME: 13:37 Assessment/Plan Assessment/Plan Chief Complaint/Hosp Course No acute changes overnight, no fevers Microbiology: Blood cultures on admission grew staph aureus and alpha hemolytic strep species Antibiotics: Vancomycin Allergies: Penicillins, sulfa Physical examination: This is a cachectic chronically ill-appearing elderly woman who is awake in no distress. Head atraumatic normocephalic nonicteric mucosa dry. Neck is supple. Chest rise symmetrical, breath sounds diminished basis. Heart S1-S2 abdomen soft bowel tones but equal bilateral edema skin multiple ecchymotic areas, patient has a left chest birthmark Assessment: 1. Status post sepsis with shock 2. Polymicrobial bacteremia 3. Acute hypoxemic respiratory failure 4. Recurrent malignant left pleural effusion, status post thoracentesis on June 10, 2017 5. History of breast cancer status post left mastectomy 6. Cachexia 7. DNR status Plan: Remains unchanged, repeat blood cultures negative, continue IV vancomycin until June 26 to complete treatment for bacteremia, f/u pulmonary recommendations, status post Pleurx Discussed with RN Problems: Consultation Date/Type/Reason Admit Date/Time Jun 10, 2017 at 00:01 Initial Consult Date 06/13/17 Type of Consultation: id Exam/Review of Systems Vital Signs Vitals Vital Signs Date Time Temp Pulse Resp B/P Pulse Ox O2 Delivery O2 Flow Rate FiO2 06/20/17 11:35 Nasal Cannula 3 06/20/17 10:10 97.7 118 18 116/58 97 Intake and Output 06/19/17 06/19/17 06/20/17 15:00 23:00 07:00 Intake Total 420 ml 350 ml Balance 420 ml 350 ml Results Result Diagram: 06/18/17 0431 06/20/17 0552 Results 24 hrs Laboratory Tests Test 06/20/17 02:52 06/20/17 05:52 Vancomycin Level Trough 13.2 Blood Urea Nitrogen 33 H Creatinine 1.00 Medications Medications Current Medications Ondansetron HCl (Zofran Inj) 4 mg Q6H PRN IV NAUSEA AND/OR VOMITING Last administered on 06/19/17 15:04; Admin Dose 4 MG; Start 06/10/17 at 00:00 Acetaminophen (Tylenol Tab) 650 mg Q6H PRN PO PAIN LEVEL 1-3 OR FEVER Last administered on 06/15/17 11:48; Admin Dose 650 MG; Start 06/10/17 at 00:00 Morphine Sulfate (morphine) 1 mg Q4H PRN IV PAIN LEVEL 7-10 Last administered on 06/13/17 04:34; Admin Dose 1 MG; Start 06/10/17 at 00:00 Pantoprazole (Protonix Iv) 40 mg DAILY@06 IV Last administered on 06/20/17 05: 16; Admin Dose 40 MG; Start 06/10/17 at 06:00 Levothyroxine Sodium (Synthroid) 100 mcg DAILY@06 PO Last administered on 08:11; Admin Dose 100 MCG; Start 06/10/17 at 06:00 Multivitamins Therapeutic (Theragran) 1 tab DAILY PO Last administered on 08:10; Admin Dose 1 TAB; Start 06/10/17 at 09:00 Dimethicone 1 applic 1 applic Q2H PRN TOP dry lips. Last administered on 11:48; Admin Dose 1 APPLIC; Start 06/11/17 at 09:00 Vancomycin HCl/ Sodium Chloride (Vancocin/NS) 150 ml @ 75 mls/hr Q36H IVPB Last administered on 06/20/17 04:04; Admin Dose 75 MLS/HR; Start 06/15/17 at 15 :00 SWAPNA CRYSTAL NP Jun 20, 2017 13:37
--- NOTE | 2017-06-20 13:41 | RADRPT ---
PROCEDURE: XR Chest. CLINICAL INDICATION: Post-Op Interventional Radiology Order. Show the Radiologist TECHNIQUE: Single frontal view of the chest was obtained COMPARISON: Chest x-ray 06/18/2017 FINDINGS: Newly seen is a probable pleural drainage catheter projecting over the left lung base. It should be noted that the distal aspect of this presumed catheter is obscured by overlapping opacities. There has been interval significant decrease in left pleural effusion, now small to moderate in size . There is associated significant interval improved aeration of the left lung. There is a persistent small right pleural effusion, now partially layering. There are new ill-defin ed opacities in the right lower lung which may represent atelectasis, edema, or consolidation. No pneumothorax is identified. There is dextroscoliosis of the thoracic spine. IMPRESSION: 1. Interval significant decrease in size of the left pleural effusion, now small to moderate size. A newly seen presumed pleural drainage catheter projecting over the left lower hemithorax is not well visualized distally. 2. Interval markedly improved aeration of the left lung. 3. Small right pleural effusion with interval increase in the adjacent right lower lung opacities w hich may represent atelectasis, edema, or pneumonia. RPTAT: PP Physician Hugo Date Time Electronically viewed and signed by Physician Hugo on 06/20/2017 13:40 /
--- NOTE | 2017-06-20 14:11 | RADRPT ---
PROCEDURE: ULTRASOUND AND FLUOROSCOPICALLY-GUIDED PERCUTANEOUS PLACEMENT OF TUNNELED LEFT PLEURAL DRAINAGE CATHETER. CLINICAL INDICATION: Large left pleural effusion and shortness of breath. TECHNIQUE: Prior to the procedure, informed consent was obtained. Risks including bleeding, infection, and pneu mothorax were explained to the patient. The patient understood and was willing to proceed. A procedu ral pause was performed. The patient's name, date of , and procedure to be performed were verif ied. The central line was inserted with all elements of maximal sterile barrier technique. All of th e following were used: head covering, facial mask, sterile gown, sterile gloves, a large sterile she et, hand hygiene, and 2% chlorhexidine for cutaneous antisepsis. The left lateral chest wall was p repped and draped in the usual sterile fashion. Limited sonography of the left side of chest was then performed. Noted is a large left pleural effus ion. Ultrasound images were recorded and stored in the patient's medical record. Following the local injection of Xylocaine, the left pleural space was punctured under sonographic g uidance posterior laterally at the 9-10 rib interspace with an 18-gauge needle through which a 0.035 inch floppy tip guidewire was advanced into the left pleural space.Following this, the catheter was tunneled subcutaneously in the left chest wall. The cuff of the catheter was positioned in the subc utaneous tissues within the tunnel approximately 2 cm from the exit site of the catheter. Serial dil atation was then performed to 16-Czech and a 16-Czech peel-away sheath was advanced over the guide wire. The 15.5 Czech Pleurex pleural catheter was advanced through the peel-away sheath into the le ft pleural space. Pleural fluid was aspirated, to verify position. The peel-away sheath was removed. The subcutaneous tissues were closed with running 3-0 Vicryl. The skin wound was then closed using 4-0 Vicryl and a running subcuticular technique. The catheter was secured to the skin with 2-0 silk suture. The site was dressed. The patient tolerated the procedure well. 1.9 liters of pleural fluid was aspirated out of the catheter without problem. COMPARISON: Chest x-ray dated 06/18/2017. FINDINGS: The final images demonstrate the pleural catheter within the left pleural space. Total fluoroscopy time is 0.1 minutes. 11 images of the chest were obtained with image intensifier. IMPRESSION: 1. Satisfactory percutaneous insertion of tunneled left pleural drainage catheter with ultrasound an d fluoroscopic guidance. RPTAT: QQ .Christiano Jimenes MD, Date Time Electronically viewed and signed by .Christiano Jimenes MD, on 06/20/2017 14:10 .R/
--- NOTE | 2017-06-20 15:57 | RADRPT ---
PROCEDURE: Ultrasound guidance for placement of needle in left pleural space. CLINICAL INDICATION: Left pleural access for placement of left chest tube. TECHNIQUE: Prior to the procedure, informed consent was obtained. Risks including bleeding, infection, and pneu mothorax were explained to the patient. The patient understood and was willing to proceed. A procedu ral pause was performed. The patient's name, date of , and procedure to be performed were verif ied. The central line was inserted with all elements of maximal sterile barrier technique. All of th e following were used: head covering, facial mask, sterile gown, sterile gloves, a large sterile she et, hand hygiene, and 2% chlorhexidine for cutaneous antisepsis. The left chest wall was prepped a nd draped in usual sterile fashion. Limited sonography of the left chest wall was then performed. Noted is a large left pleural effusion . Ultrasound images were recorded and stored in the patient's medical record. Following the local injection of Xylocaine, the left pleural space was punctured under sonographic g uidance with and 18-gauge needle through which a 0.035 inch guidewire was advanced into the left ple ural space. The patient tolerated the procedure well. The remainder of the procedure was performed and dictated under separate cover. COMPARISON: None. FINDINGS: The ultrasound images demonstrate a large left pleural effusion. The subsequent images demonstrate the needle entering the left pleural space. IMPRESSION: 1. Ultrasound guidance for a needle placement in left pleural space. RPTAT: QQ .Christiano Jimenes MD, MD Date Time Electronically viewed and signed by .Christiano Jimenes MD, MD on 06/20/2017 15:57 .R/
--- NOTE | 2017-06-20 16:21 | CONS ---
Date/Time of Note Date/Time of Note DATE: 06/20/17 TIME: 16:19 Consult Date/Type/Reason Admit Date/Time Jun 10, 2017 at 00:01 Initial Consult Date 06/10/17 Type of Consultation: Pulmonary Subjective Patient underwent placement of Pleurx catheter today. States her breathing is better. Objective Vital Signs Date Time Temp Pulse Resp B/P Pulse Ox O2 Delivery O2 Flow Rate FiO2 06/20/17 14:00 97.8 115 18 95/50 96 06/20/17 11:35 Nasal Cannula 3 Intake and Output 06/19/17 06/19/17 06/20/17 15:00 23:00 07:00 Intake Total 420 ml 350 ml Balance 420 ml 350 ml Exam Chronically ill-appearing lady on nasal cannula O2. Mild confusion. GENERAL: Thin cachectic VITAL SIGNS: per chart NECK: Supple. No JVD or lymphadenopathy. CARDIAC EXAM: S1, S2. No added sounds or murmurs. CHEST: decreased air entry left base. ABDOMEN: Soft, nontender. No guarding or rebound. EXTREMITIES: No cyanosis, clubbing or edema. NEUROLOGIC: Generalized weakness. No focal deficits. Results/Medications Result Diagram: 06/18/17 0431 06/20/17 0552 Results 24 hrs Laboratory Tests Test 06/20/17 02:52 06/20/17 05:52 Vancomycin Level Trough 13.2 Blood Urea Nitrogen 33 H Creatinine 1.00 Medications Current Medications Ondansetron HCl (Zofran Inj) 4 mg Q6H PRN IV NAUSEA AND/OR VOMITING Last administered on 06/19/17 15:04; Admin Dose 4 MG; Start 06/10/17 at 00:00 Acetaminophen (Tylenol Tab) 650 mg Q6H PRN PO PAIN LEVEL 1-3 OR FEVER Last administered on 06/15/17 11:48; Admin Dose 650 MG; Start 06/10/17 at 00:00 Morphine Sulfate (morphine) 1 mg Q4H PRN IV PAIN LEVEL 7-10 Last administered on 06/13/17 04:34; Admin Dose 1 MG; Start 06/10/17 at 00:00 Pantoprazole (Protonix Iv) 40 mg DAILY@06 IV Last administered on 06/20/17 05: 16; Admin Dose 40 MG; Start 06/10/17 at 06:00 Levothyroxine Sodium (Synthroid) 100 mcg DAILY@06 PO Last administered on 08:11; Admin Dose 100 MCG; Start 06/10/17 at 06:00 Multivitamins Therapeutic (Theragran) 1 tab DAILY PO Last administered on 08:10; Admin Dose 1 TAB; Start 06/10/17 at 09:00 Dimethicone 1 applic 1 applic Q2H PRN TOP dry lips. Last administered on 11:48; Admin Dose 1 APPLIC; Start 06/11/17 at 09:00 Vancomycin HCl/ Sodium Chloride (Vancocin/NS) 150 ml @ 75 mls/hr Q36H IVPB Last administered on 06/20/17 04:04; Admin Dose 75 MLS/HR; Start 06/15/17 at 15 :00 Assessment/Plan Chief Complaint/Hosp Course Assessment 1. Acute hypoxemic respiratory failure likely secondary to pleural effusion repeat thoracentesis status post Pleurx catheter. 2. Pleural effusion likely malignant given history of breast cancer, cytology consistent with breast cancer. 3. Weight loss and cachexia concerning for progressive metastatic disease 4. Hypotension possibly underlying sepsis and/or adrenal insufficiency. Plan 1. Continue Pleurx catheter drainage 2. Discharge to senior care facility 3. Consider hospice eval at snf. Problems: LILLY MOODY MD, [facility] Jun 20, 2017 16:21
--- NOTE | 2017-06-20 19:33 | CONS ---
DATE OF ADMISSION: 06/10/2017 DATE OF CONSULTATION: 06/11/2017 REASON FOR CONSULTATION: Antibiotic management. HISTORY OF PRESENT ILLNESS: The patient is a 76-year-old female, who presented to the emergency room with left flank pain and is being seen for antibiotic management. The left flank pain has been persistent for the past 2 weeks after she experienced a ground level trip and fall. She went to her chiropractor and he took x-rays, which showed no fractures. Left flank pain now radiates to the left thoracic region, it is not exacerbated by anything in particular. She has had no fever or chills or rigors. She does denies gross hematuria. She denies headache. Patient has a remote history of breast carcinoma treated with oral chemotherapy. ALLERGIES: SHE HAS ALLERGY TO PENICILLIN AND SULFA. PAST MEDICAL HISTORY: Positive for breast cancer, also hypothyroidism. PAST SURGICAL HISTORY: Status post left breast mastectomy and thyroidectomy. FAMILY HISTORY: Positive for cancer. SOCIAL HISTORY: She does not smoke, drink, or abuse drugs. ALLERGIES: NONE TO PENICILLIN, SULFA, OR FOODS. MEDICATIONS: Per chart. REVIEW OF SYSTEMS: As per HPI. PHYSICAL EXAMINATION: GENERAL: Patient is a frail female, who is awake, responsive, in no acute distress. VITAL SIGNS: Stable. She is afebrile. SKIN: Without generalized rash. HEENT: Within normal limits. NECK: Supple. Lymph nodes are not palpable. CHEST: Decreased breath sounds at the bases. HEART: Without murmur or gallop. ABDOMEN: Soft, nontender, without organosplenomegaly or masses. EXTREMITIES: Without cyanosis, clubbing, or edema. RECTAL/GENITAL: Deferred. NEUROLOGIC: No focal neurological abnormalities. IMAGING: Chest x-ray shows complete opacification of left hemithorax with shift of the cardiac mediastinal and mediastinum to the right. Findings suggest a lung mass and effusion, examination of the chest was recommended. An abdominal and pelvic CT scan was done, which showed large left pleural effusion with compressive atelectasis in the visualized mediastinal structures and inferior displacement of the left hemidiaphragm. She underwent thoracentesis on the , approximately 2 L of serous fluid was aspirated and sent to the laboratory. Repeat chest x-ray showed no pneumothorax, remains large left pleural effusion on the left side. A CT scan of the chest shows very large left pleural effusion filling an extending left chest cavity causing complete collapse of left lung, significant rightward shift of the mediastinum. 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 LABORATORY DATA: Blood cultures are growing gram-positive cocci in clusters and chains. The patient was begun on vancomycin and cefepime. Of note is the fact that her white count today is 22.8, hemoglobin and hematocrit 16.5 and 52.2, platelet count 236,000. BUN and creatinine 68 and 1.6. IMPRESSION AND PLAN: Patient presents now with a large left pleural effusion and most likely has pneumococcal pneumonia. She is on vancomycin and cefepime, which is appropriate. I will dictate my findings to the hospitalist and also to Dr. Porter. Dictated By: iTm Antonio MD JD/shanda/mora /Document#: [id number]
[2017-06-21 02:00] VITALS: BP 69/41; RESP 19
[2017-06-21 05:08] LABS: BASOPHILS % 0.1 % (0.0-2.0); EOSINOPHILS % 0.1 % (0.0-7.0); HEMOGLOBIN 15.2 g/dl (12.0-16.0); LYMPHOCYTES % 5.4 % (15.0-51.0); MEAN CORPUSCULAR HEMOGLOBIN 28.2 pg (29.0-33.0); MEAN CORPUSCULAR HGB CONC 32.3 g/dl (32.0-37.0); MEAN CORPUSCULAR VOLUME 87.2 fl (82.0-101.0); MEAN PLATELET VOLUME 11.2 fl (7.4-10.4); MONOCYTE # 0.8 10^3/ul (0.3-0.9); MONOCYTES % 4.7 % (0.0-11.0); NEUTROPHILS % 89.1 % (39.0-77.0); PLATELET COUNT 128 10^3/UL (140-415); RED BLOOD COUNT 5.39 10^6/ul (4.20-5.40); RED CELL DISTRIBUTION WIDTH 16.3 % (11.5-14.5); WHITE BLOOD COUNT 17.9 10^3/ul (4.8-10.8)
[2017-06-21 05:49] LABS: CALCIUM 8.1 mg/dl (8.4-10.2); CREATININE 0.97 mg/dl (0.44-1.00); MAGNESIUM 2.1 mg/dl (1.7-2.5); PHOSPHORUS 2.6 mg/dl (2.5-4.9); POTASSIUM 3.4 mmol/L (3.5-5.1)
[2017-06-21] MEDS: FUROSEMIDE 20 MG INJ IV SCH ×2 (05:58→18:00)
[2017-06-21] MEDS ORDERED: SOD CHLORIDE 0.9% 500 ML IV ONE (06:00)
[2017-06-21] MEDS: PANTOPRAZOLE 40 MG INJ IV SCH (06:05)
[2017-06-21] MEDS: LEVOTHYROXINE 100 MCG TAB PO SCH (06:06)
[2017-06-21] MEDS: ALBUTEROL 0.083% (NEB) 2.5 MG/3 ML AMP HHN SCH ×2 (08:00→14:00)
[2017-06-21 08:03] VITALS: BP 87/53; RESP 18
[2017-06-21] MEDS: MULTIVITAMINS THERAPEUTIC TAB PO SCH (09:43)
--- NOTE | 2017-06-21 09:46 | CONS ---
Date/Time of Note Date/Time of Note DATE: 06/21/17 TIME: 09:44 Assessment/Plan Assessment/Plan Additional Assessment/Plan Assessment recommendations; next 1. Patient admitted with shortness of breath due to very large left pleural effusion status post 2 thoracentesis with subsequent placement of Pleurx catheter placement. 2. Underlying malignancy. Next Continue current treatment. She can be discharged to a custodial. Prognosis is poor. Consultation Date/Type/Reason Admit Date/Time Jun 10, 2017 at 00:01 Initial Consult Date 06/13/17 Type of Consultation: Pulmonary 24 HR Interval Summary Free Text/Dictation Patient condition is stable. Underwent Pleurx catheter placement yesterday on the left side. Shortness of breath is markedly improved. General exam; elderly woman, awake alert currently in no distress. Appears quite emaciated. Exam/Review of Systems Vital Signs Vitals Vital Signs Date Time Temp Pulse Resp B/P Pulse Ox O2 Delivery O2 Flow Rate FiO2 06/21/17 08:53 3.0 06/21/17 08:03 97.5 103 18 87/53 98 06/20/17 20:00 Nasal Cannula Intake and Output 06/20/17 06/20/17 06/21/17 15:00 23:00 07:00 Intake Total 200 ml 300 ml 840 ml Output Total 3800 ml 300 ml Balance -3600 ml 0 ml 840 ml Exam HEENT exam; supple neck, no JVD. No lymphadenopathy. Midline trachea. No neck masses. Pharynx is clear. Patient has fair dentition. Chest exam; improved breath sounds left lung. Pleurx catheter is in place left posterior lateral chest wall. S1-S2 audible, no murmurs. Regular rhythm. Abdomen exam; soft, nontender. No organomegaly. Bowel sounds audible. Extremity exam; no peripheral edema. She does have multiple ecchymosis involving all 4 extremities. PRODUCTION EXPERT exam; no focal deficit. Results Result Diagram: 06/21/17 0434 06/21/17 0434 Results 24 hrs Laboratory Tests Test 06/21/17 04:34 White Blood Count 17.9 H Red Blood Count 5.39 Hemoglobin 15.2 Hematocrit 47.0 Mean Corpuscular Volume 87.2 Mean Corpuscular Hemoglobin 28.2 L Mean Corpuscular Hemoglobin Concent 32.3 Red Cell Distribution Width 16.3 H Platelet Count 128 L Mean Platelet Volume 11.2 H Neutrophils % 89.1 H Lymphocytes % 5.4 L Monocytes % 4.7 Eosinophils % 0.1 Basophils % 0.1 Nucleated Red Blood Cells % 0.0 Neutrophils # 16.0 H Lymphocytes # 1.0 Monocytes # 0.8 Eosinophils # 0.0 Basophils # 0.0 Nucleated Red Blood Cells # 0.0 Sodium Level 141 Potassium Level 3.4 L Chloride Level 109 Carbon Dioxide Level 24 Anion Gap 11 Blood Urea Nitrogen 38 H Creatinine 0.97 Glucose Level 115 Calcium Level 8.1 L Phosphorus Level 2.6 Magnesium Level 2.1 Medications Medications Current Medications Ondansetron HCl (Zofran Inj) 4 mg Q6H PRN IV NAUSEA AND/OR VOMITING Last administered on 06/19/17 15:04; Admin Dose 4 MG; Start 06/10/17 at 00:00 Acetaminophen (Tylenol Tab) 650 mg Q6H PRN PO PAIN LEVEL 1-3 OR FEVER Last administered on 06/15/17 11:48; Admin Dose 650 MG; Start 06/10/17 at 00:00 Morphine Sulfate (morphine) 1 mg Q4H PRN IV PAIN LEVEL 7-10 Last administered on 06/13/17 04:34; Admin Dose 1 MG; Start 06/10/17 at 00:00 Pantoprazole (Protonix Iv) 40 mg DAILY@06 IV Last administered on 06/21/17 06: 05; Admin Dose 40 MG; Start 06/10/17 at 06:00 Levothyroxine Sodium (Synthroid) 100 mcg DAILY@06 PO Last administered on 06:06; Admin Dose 100 MCG; Start 06/10/17 at 06:00 Multivitamins Therapeutic (Theragran) 1 tab DAILY PO Last administered on 09:43; Admin Dose 1 TAB; Start 06/10/17 at 09:00 Dimethicone 1 applic 1 applic Q2H PRN TOP dry lips. Last administered on 11:48; Admin Dose 1 APPLIC; Start 06/11/17 at 09:00 Vancomycin HCl/ Sodium Chloride (Vancocin/NS) 150 ml @ 75 mls/hr Q36H IVPB Last administered on 06/20/17 04:04; Admin Dose 75 MLS/HR; Start 06/15/17 at 15 :00 OMI SPENCE Jun 21, 2017 09:46
--- NOTE | 2017-06-21 13:02 | CONS ---
Date/Time of Note Date/Time of Note DATE: 06/21/17 TIME: 12:57 Assessment/Plan Assessment/Plan Chief Complaint/Hosp Course Assessment/Plan Chief Complaint/Hosp Course No acute changes overnight. No fevers. No Acute Distress. Microbiology: Blood cultures on admission grew staph aureus and alpha hemolytic strep species Antibiotics: Vancomycin Allergies: Penicillins, sulfa Physical examination: This is a cachectic chronically ill-appearing elderly woman who is awake in no distress. Head atraumatic normocephalic nonicteric mucosa dry. Neck is supple. Chest rise symmetrical, breath sounds diminished basis. Heart S1-S2 abdomen soft bowel tones but equal bilateral edema skin multiple ecchymotic areas, patient has a left chest birthmark Assessment: 1. Status post sepsis with shock 2. Polymicrobial bacteremia 3. Acute hypoxemic respiratory failure 4. Recurrent malignant left pleural effusion, status post thoracentesis on June 10, 2017 5. History of breast cancer status post left mastectomy 6. Cachexia 7. Leukocytosis 8. DNR status Plan: Remains stable. Repeat blood cultures negative. Continue IV vancomycin until June 26 to complete treatment for bacteremia. Follow up with pulmonary recommendations. Monitor Labs. Status post Pleurx. Discussed with RN. Problems: Consultation Date/Type/Reason Admit Date/Time Jun 10, 2017 at 00:01 Initial Consult Date 06/13/17 Type of Consultation: id Exam/Review of Systems Vital Signs Vitals Vital Signs Date Time Temp Pulse Resp B/P Pulse Ox O2 Delivery O2 Flow Rate FiO2 06/21/17 08:53 3.0 06/21/17 08:03 97.5 103 18 87/53 98 06/20/17 20:00 Nasal Cannula Intake and Output 06/20/17 06/20/17 06/21/17 15:00 23:00 07:00 Intake Total 200 ml 300 ml 840 ml Output Total 3800 ml 300 ml Balance -3600 ml 0 ml 840 ml Results Result Diagram: 06/21/17 0434 06/21/17 0434 Results 24 hrs Laboratory Tests Test 06/21/17 04:34 White Blood Count 17.9 H Red Blood Count 5.39 Hemoglobin 15.2 Hematocrit 47.0 Mean Corpuscular Volume 87.2 Mean Corpuscular Hemoglobin 28.2 L Mean Corpuscular Hemoglobin Concent 32.3 Red Cell Distribution Width 16.3 H Platelet Count 128 L Mean Platelet Volume 11.2 H Neutrophils % 89.1 H Lymphocytes % 5.4 L Monocytes % 4.7 Eosinophils % 0.1 Basophils % 0.1 Nucleated Red Blood Cells % 0.0 Neutrophils # 16.0 H Lymphocytes # 1.0 Monocytes # 0.8 Eosinophils # 0.0 Basophils # 0.0 Nucleated Red Blood Cells # 0.0 Sodium Level 141 Potassium Level 3.4 L Chloride Level 109 Carbon Dioxide Level 24 Anion Gap 11 Blood Urea Nitrogen 38 H Creatinine 0.97 Glucose Level 115 Calcium Level 8.1 L Phosphorus Level 2.6 Magnesium Level 2.1 Medications Medications Current Medications Ondansetron HCl (Zofran Inj) 4 mg Q6H PRN IV NAUSEA AND/OR VOMITING Last administered on 06/19/17 15:04; Admin Dose 4 MG; Start 06/10/17 at 00:00 Acetaminophen (Tylenol Tab) 650 mg Q6H PRN PO PAIN LEVEL 1-3 OR FEVER Last administered on 06/15/17 11:48; Admin Dose 650 MG; Start 06/10/17 at 00:00 Morphine Sulfate (morphine) 1 mg Q4H PRN IV PAIN LEVEL 7-10 Last administered on 06/13/17 04:34; Admin Dose 1 MG; Start 06/10/17 at 00:00 Pantoprazole (Protonix Iv) 40 mg DAILY@06 IV Last administered on 06/21/17 06: 05; Admin Dose 40 MG; Start 06/10/17 at 06:00 Levothyroxine Sodium (Synthroid) 100 mcg DAILY@06 PO Last administered on 06:06; Admin Dose 100 MCG; Start 06/10/17 at 06:00 Multivitamins Therapeutic (Theragran) 1 tab DAILY PO Last administered on 09:43; Admin Dose 1 TAB; Start 06/10/17 at 09:00 Dimethicone 1 applic 1 applic Q2H PRN TOP dry lips. Last administered on 11:48; Admin Dose 1 APPLIC; Start 06/11/17 at 09:00 Vancomycin HCl/ Sodium Chloride (Vancocin/NS) 150 ml @ 75 mls/hr Q36H IVPB Last administered on 06/20/17 04:04; Admin Dose 75 MLS/HR; Start 06/15/17 at 15 :00 SNEHA CHAMPAGNE NP Jun 21, 2017 13:02
--- NOTE | 2017-06-21 13:56 | PN ---
Date/Time of Note Date/Time of Note DATE: 06/21/17 TIME: 13:42 Assessment/Plan VTE Prophylaxis VTE Prophylaxis Intervention: SCD's Lines/Catheters IV Catheter Type (from [facility]): [place] [facility] Urinary Cath still in place: No Assessment/Plan Assessment/Plan 1. Metastatic breast cancer with recurrent left -sided pleural effusion, Pleurx catheter placement on 06/20/2017, Patient refusing to see any oncologist despite medical advice 2. Acute hypoxic respiratory failure secondary to pleural effusion. improved 3. Sepsis with bacteremia, suspected left-sided pneumonia. Continue IV antibiotics.to 06/26/2017 per ID 4. GATO. Monitor renal panel. resolved 5. Protein calorie malnutrition, anasarca, Continue dietary supplements 6. Hypothyroidism. Continue on Synthroid 7. Code status: DNR 8. Poor prognosis, follow up with hospice care DVT prophylaxis: SCDs Subjective 24 Hr Interval Summary Free Text/Dictation s/p pleurx yesterday. no shortness of breath. afebrile. Exam/Review of Systems Vital Signs Vitals Vital Signs Date Time Temp Pulse Resp B/P Pulse Ox O2 Delivery O2 Flow Rate FiO2 06/21/17 08:53 3.0 06/21/17 08:03 97.5 103 18 87/53 98 06/20/17 20:00 Nasal Cannula Intake and Output 06/20/17 06/20/17 06/21/17 15:00 23:00 07:00 Intake Total 200 ml 300 ml 840 ml Output Total 3800 ml 300 ml Balance -3600 ml 0 ml 840 ml Exam Constitutional: alert, frail, oriented Head: atraumatic, normocephalic Eyes: EOMI, nl conjunctiva, nl lids ENMT: mucosa pink and moist, nl external ears & nose, nl lips & teeth, nl nasal mucosa & septum Neck: non-tender, supple Respiratory: clear to auscultation, normal air movement, other (left pleuxrx), No congested cough, No crackles/rales, No diminished breath sounds, No wheezing Cardiovascular: nl pulses, regular rate and rhythm, No S3, No S4, No bruits, No diastolic murmur, No edema, No gallop, No irregular rhythm, No jugular venous distention (JVD), No murmurs/extra sounds, No other, No rub, No systolic murmur Gastrointestinal: nl liver, spleen, non-tender, soft Musculoskeletal: nl extremities to inspection Extremities: edema, normal pulses Neurological: OPERATIONS OFFICER AFLOAT II-XII intact, nl mental status, nl speech, nl strength Results Result Diagram: 06/21/1743306/21/17433 Results 24 hrs Laboratory Tests Test 06/21/17 04:34 White Blood Count 17.9 H Red Blood Count 5.39 Hemoglobin 15.2 Hematocrit 47.0 Mean Corpuscular Volume 87.2 Mean Corpuscular Hemoglobin 28.2 L Mean Corpuscular Hemoglobin Concent 32.3 Red Cell Distribution Width 16.3 H Platelet Count 128 L Mean Platelet Volume 11.2 H Neutrophils % 89.1 H Lymphocytes % 5.4 L Monocytes % 4.7 Eosinophils % 0.1 Basophils % 0.1 Nucleated Red Blood Cells % 0.0 Neutrophils # 16.0 H Lymphocytes # 1.0 Monocytes # 0.8 Eosinophils # 0.0 Basophils # 0.0 Nucleated Red Blood Cells # 0.0 Sodium Level 141 Potassium Level 3.4 L Chloride Level 109 Carbon Dioxide Level 24 Anion Gap 11 Blood Urea Nitrogen 38 H Creatinine 0.97 Glucose Level 115 Calcium Level 8.1 L Phosphorus Level 2.6 Magnesium Level 2.1 Medications Medications Current Medications Ondansetron HCl (Zofran Inj) 4 mg Q6H PRN IV NAUSEA AND/OR VOMITING Last administered on 06/19/17 15:04; Admin Dose 4 MG; Start 06/10/17 at 00:00 Acetaminophen (Tylenol Tab) 650 mg Q6H PRN PO PAIN LEVEL 1-3 OR FEVER Last administered on 06/15/17 11:48; Admin Dose 650 MG; Start 06/10/17 at 00:00 Morphine Sulfate (morphine) 1 mg Q4H PRN IV PAIN LEVEL 7-10 Last administered on 06/13/17 04:34; Admin Dose 1 MG; Start 06/10/17 at 00:00 Pantoprazole (Protonix Iv) 40 mg DAILY@06 IV Last administered on 06/21/17 06: 05; Admin Dose 40 MG; Start 06/10/17 at 06:00 Levothyroxine Sodium (Synthroid) 100 mcg DAILY@06 PO Last administered on 06:06; Admin Dose 100 MCG; Start 06/10/17 at 06:00 Multivitamins Therapeutic (Theragran) 1 tab DAILY PO Last administered on 09:43; Admin Dose 1 TAB; Start 06/10/17 at 09:00 Dimethicone 1 applic 1 applic Q2H PRN TOP dry lips. Last administered on 11:48; Admin Dose 1 APPLIC; Start 06/11/17 at 09:00 Vancomycin HCl/ Sodium Chloride (Vancocin/NS) 150 ml @ 75 mls/hr Q36H IVPB Last administered on 06/20/17 04:04; Admin Dose 75 MLS/HR; Start 06/15/17 at 15 :00 ASHELY MADRIGAL MD Jun 21, 2017 13:52
[2017-06-21 14:00] VITALS: BP 91/53; RESP 20
[2017-06-21] MEDS ORDERED: Vancomycin Iv Per Pharmacy XX (14:19)
[2017-06-21] MEDS ORDERED: POTASSIUM CHLORIDE (SR) 20 MEQ TAB PO STA (14:26)
--- NOTE | 2017-06-21 14:26 | DS ---
Date/Time of Note Date/Time of Note DATE: 06/21/17 TIME: 14:19 Discharge Summary Admission/Discharge Info Admit Date/Time Jun 10, 2017 at 00:01 Discharge Date/Time Discharge Diagnosis 1. Metastatic breast cancer with recurrent left -sided pleural effusion, Pleurx catheter placement on 06/20/2017, Patient refusing to see any oncologist despite medical advice 2. Acute hypoxic respiratory failure secondary to pleural effusion. improved 3. Sepsis with bacteremia, suspected left-sided pneumonia. Continue IV antibiotics.to 06/26/2017 per ID 4. GATO. Monitor renal panel. resolved 5. Protein calorie malnutrition, anasarca, Continue dietary supplements 6. Hypothyroidism. Continue on Synthroid 7. Code status: DNR Hx of Present Illness This is a 76-year-old female that presents to the emergency department complaining of left flank pain that has been persistent for the past 2 weeks after the patient experienced a ground-level trip and fall. The patient had gone to her chiropractor and had radiographic imaging of her lumbar spine and pelvis which indicated there is no fractures. She states however that the left flank pain has now radiated to the left thoracic region. There is no alleviating or exacerbating factors. She has had no fever shaking or chills. She denies any gross hematuria no frequency urgency or dysuria. She denies a headache. She indicates she has a remote history of breast carcinoma that was treated with oral chemotherapy agents but cannot remember the name of her oncologist or when she took this medication. She denies any neck pain and no numbness of her upper or lower extremities. allergies: Penicillin, sulfa Medications: See [facility] Hospital Course Patient had Acute hypoxic respiratory failure secondary to pleural effusion. Patient status post left-sided thoracentesis on June 10, 2017 as well as May and June 18, 2017. Pathology is back as metastatic mammary carcinoma. Patient refuses oncology consultation for further treatment. Left pleurx was inserted on 06/20/2017. Patient 's code status is DNR. Patient has persistent leukocytosis with blood culture posive with STAPHYLOCOCCUS AUREUS and ALPHA HEMOLYTIC STREP [facility], patient is on vancomycin that will continue for another 5 days to . Home Meds Active Scripts [Vancomycin Iv Per Pharmacy] 1 EA EACH No Conflict Check, 0 EA XX .PER PROTOCOL for 5 Days, #5 Prov:ASHELY MADRIGAL MD 06/21/17 Pantoprazole* (Protonix* IV) 40 Mg Soln, 40 MG IV DAILY@06 for 30 Days Prov:DARBY BALTAZAR 06/16/17 Ondansetron Hcl* (Ondansetron Hcl* Inj) 4 Mg/2 Ml Vial, 4 MG IV Q6H Y for NAUSEA AND/OR VOMITING for 30 Days, VIAL Prov:DARBY BALTAZAR 06/16/17 Morphine Sulfate (Morphine Sulfate) 2 Mg/Ml Soln, 1 MG IV Q4H Y for PAIN LEVEL 7 -10 for 30 Days Prov:DARBY BALTAZAR 06/16/17 [Dimethicone] 1 APPLIC BALM No Conflict Check, 1 APPLIC TOP Q2H Y for dry lips. for 30 Days Prov:DARBY BALTAZAR 06/16/17 Albuterol Sulfate* (Albuterol Sulfate* Neb) 0.083%-3 Ml Neb, 2.5 MG HHN Q6HWA RESP THERAPY for 30 Days Prov:DARBY BALTAZAR 06/16/17 Albuterol Sulfate* (Albuterol Sulfate* Neb) 0.083%-3 Ml Neb, 2.5 MG HHN Q2H RESP THERAPY Y for SHORTNESS OF BREATH for 30 Days Prov:DARBY BALTAZAR 06/16/17 Acetaminophen (MAPAP) 325 Mg Tablet, 650 MG PO Q6H Y for PAIN LEVEL 1-3 OR FEVER for 30 Days, TAB Prov:DARBY BALTAZAR 06/16/17 Reported Medications Multivitamins* (Theragran*) 1 Tab Tab, 1 TAB PO DAILY, TAB 06/09/17 Levothyroxine Sodium* (Synthroid*) 100 Mcg Tablet, 100 MCG PO DAILY 01/09/14 Follow-up Plan PCP in one week Primary Care Provider Dulce Monzon DO Pending Labs Laboratory Tests Test 06/21/17 04:34 White Blood Count 17.910^3/ul (4.8-10.8) Red Blood Count 5.3910^6/ul (4.20-5.40) Hemoglobin 15.2g/dl (12.0-16.0) Hematocrit 47.0% (37.0-47.0) Mean Corpuscular Volume 87.2fl (82.0-101.0) Mean Corpuscular Hemoglobin 28.2pg (29.0-33.0) Mean Corpuscular Hemoglobin Concent 32.3g/dl (32.0-37.0) Red Cell Distribution Width 16.3% (11.5-14.5) Platelet Count 89542^3/UL (140-415) Mean Platelet Volume 11.2fl (7.4-10.4) Neutrophils % 89.1% (39.0-77.0) Lymphocytes % 5.4% (15.0-51.0) Monocytes % 4.7% (0.0-11.0) Eosinophils % 0.1% (0.0-7.0) Basophils % 0.1% (0.0-2.0) Nucleated Red Blood Cells % 0.0/100WBC (0.0-0.0) Neutrophils # 16.010^3/ul (1.6-7.5) Lymphocytes # 1.010^3/ul (0.8-2.9) Monocytes # 0.810^3/ul (0.3-0.9) Eosinophils # 0.010^3/ul (0.0-0.5) Basophils # 0.010^3/ul (0.0-0.1) Nucleated Red Blood Cells # 0.010^3/ul (0.0-0.0) Sodium Level 141mmol/L (135-144) Potassium Level 3.4mmol/L (3.5-5.1) Chloride Level 109mmol/L (97-110) Carbon Dioxide Level 24mmol/L (21-31) Anion Gap 11 (8-16) Blood Urea Nitrogen 38mg/dl (7-20) Creatinine 0.97mg/dl (0.44-1.00) Glucose Level 115mg/dl (70-220) Calcium Level 8.1mg/dl (8.4-10.2) Phosphorus Level 2.6mg/dl (2.5-4.9) Magnesium Level 2.1mg/dl (1.7-2.5) ASHELY MADRIGAL MD Jun 21, 2017 14:26
--- NOTE | 2017-06-21 15:18 | RADRPT ---
PROCEDURE: XR Chest. CLINICAL INDICATION: Shortness of breath. TECHNIQUE: Single frontal view of the chest was obtained COMPARISON: Chest x-ray 06/20/2017 FINDINGS: Again seen is a pleural drainage catheter projecting over the left lung base. There is interval inc reased moderate left sided pleural effusion with atelectasis and/or infiltrate. There is a persiste nt small right pleural effusion with ill-defined opacities in the right lower lung which may represe nt atelectasis, edema, or consolidation. No pneumothorax is identified. There is dextroscoliosis of the thoracic spine. IMPRESSION: 1. Interval increased moderate left sided pleural effusion with atelectasis and/or infiltrate. Sta ble left sided pleural drainage catheter projecting over the left lower hemithorax. 2. Stable small right pleural effusion with persistent adjacent right lower lung opacities which ma y represent atelectasis, edema, or pneumonia. RPTAT: RR .Jorge Gambino MD, MD Date Time Electronically viewed and signed by .Jorge Gambino MD, on 06/21/2017 15:18 .A/
[2017-06-21] MEDS: VANCOMYCIN 750 MG in SOD CHLORIDE 0.9% 150 ML IVPB SCH (17:00)
[2017-06-21 20:00] VITALS: BP 85/57; RESP 18
[2017-06-21] MEDS ORDERED: ALPRAZOLAM 0.25 MG TAB PO ONE (20:30)
--- NOTE | 2017-06-22 05:54 | PN ---
DATE: 06/16/2017 SUBJECTIVE DATA: The patient is stable. No events overnight. No fevers, chills, nausea, or vomiting. Vitals: Blood pressure is 90/64, respirations 20, temperature 97.6. HEENT, head is normocephalic. Neck is supple. Heart is regular rate. Lungs have diminished breath sounds at the bases. Abdomen is soft, nontender to palpation. No rebound or guarding. Extremities show no clubbing, cyanosis, no edema. Dermatologically, no rashes. No joint effusion. Neurogically, no change. The patient's medication was reviewed. LABORATORY DATA: From 06/16 shows sodium 143, potassium 4.5, chloride 108, BUN 42, creatinine 0.92. ASSESSMENT AND PLAN: 1. Nonoliguric acute kidney injury with unknown baseline creatinine. Also CKD. Etiology is secondary to hemodynamics. Renal function is improved with supportive care and status post IV fluids. At this point continue to monitor closely. 2. Hypernatremia improved. Continue to encourage free water intake. 3. Diagnosis of anemia. Continue to monitor for any change. 4. bone disorder. left-sided pleural effusion status post thoracentesis. 5. Sepsis. Patient is completing of antibiotic course and acute hypoxic respiratory failure. The patient is clinically stable. Continue to monitor. 6. History of breast cancer with possible recurrence. 7. Hypothyroidism. Continue Synthroid. Dictated By: Doug Arredondo DO /shanda/janes /Document#: [id number]
--- NOTE | 2017-06-22 06:42 | PN ---
DATE: 06/15/2017 SUBJECTIVE: The patient is stable. No events overnight. No fevers, chills, nausea, vomiting, shortness of breath. OBJECTIVE DATA: VITAL SIGNS: Blood pressure 98/53, respirations 20, pulse 98, temperature 98.3. HEENT: Normocephalic. NECK: Supple. HEART: Regular rate. LUNGS: Diminished breath sounds at the base. ABDOMEN: Soft. Nontender to palpation. No rebound guarding. EXTREMITIES: Negative for clubbing or cyanosis. No edema. DERMATOLOGIC: No rashes. MUSCULOSKELETAL: No joint effusion. NEUROLOGIC: No change in exam. MEDICATIONS: Reviewed. LABORATORY AND DIAGNOSTIC DATA: Currently pending. ASSESSMENT AND PLAN: 1. Nonoliguric acute kidney injury with unknown baseline creatinine. Possible chronic kidney disease. Etiology is hemodynamics. Renal function has improved with IV fluids. . 2. Metabolic disorder. 3. status post thoracentesis. 4. Sepsis. The patient antibiotic therapy will continue. Acute hypoxic respiratory failure secondary to pleural effusions. Continue current medical 5. management. Continue bronchodilators. Supplemental oxygen. 6. History of breast cancer status post mastectomy. 7. Hypothyroid. Continue Synthroid. Dictated By: Doug Arredondo DO /shanda/desean /Document#: [id number]
--- NOTE | 2017-06-22 06:49 | PN ---
DATE: 06/14/2017 SUBJECTIVE DATA: The patient is stable. Had a thoracentesis yesterday with 800 mL removed. No other events noted. The patient is pending hospice evaluation OBJECTIVE DATA: VITAL SIGNS: Blood pressure 88/56, respirations , pulse 98, temperature 97.9. HEENT: Normocephalic. NECK: Supple. HEART: Regular rate. LUNGS: Diminished breath sounds at the base. ABDOMEN: Soft. Nontender to palpation. No rebound guarding. EXTREMITIES: No clubbing or cyanosis. No edema. DERMATOLOGIC: No rashes. MUSCULOSKELETAL: No joint pain. NEUROLOGIC: No change in exam. MEDICATIONS: Reviewed. LABORATORY AND DIAGNOSTIC DATA: Sodium 145, potassium 4.6, chloride 115. BUN 53, creatinine 1.17. White count 15.8, hemoglobin 15.5, platelet count 120. ASSESSMENT AND PLAN: 1. acute kidney injury baseline creatinine. 2. Chronic kidney disease. renal function is improving. care. The patient is status post . 3. Hyponatremia. water intake. 4. 5. Metabolic disorder. 6. status post thoracentesis. Continue to monitor. 7. sepsis secondary to pneumonia. Continue current antibiotic regimen. 8. Acute hypoxemic failure secondary to pleural effusion. Continue current medical management. Continue nebulizer and supplemental oxygen. 9. History of breast cancer, possible recurrence. 10. Hypothyroidism. Continue Synthroid. 11. Hypertension. The patient has received IV fluids. Will continue to monitor. Dictated By: Doug Arredondo DO /shanda/desean /Document#: [id number]
--- NOTE | 2017-06-23 14:39 | PN ---
DATE: 06/19/2017 SUBJECTIVE: The patient remains generally ill but stable. No new events noted. OBJECTIVE DATA: VITAL SIGNS: Blood pressure 104/55, respirations 17, pulse 104, temperature 97.4. HEENT: Head is normocephalic. NECK: Supple. HEART: Regular rate. LUNGS: Diminished breath sounds at the bases. ABDOMEN: Soft, nontender to palpation. No rebound or guarding. EXTREMITIES: Negative for clubbing, cyanosis, no edema. DERMATOLOGIC: No rashes. MUSCULOSKELETAL: No joint effusion. NEUROLOGIC: Nonfocal exam. MEDICATION: Reviewed. LABORATORY AND DIAGNOSTIC DATA: Has been reviewed. Chest x-ray shows left pleural effusion, larger and worse than before. ASSESSMENT AND PLAN: 1. Nonoliguric acute kidney injury with unknown baseline creatinine. Etiology secondary to hemodynamics. Renal function is improved. Continue to monitor. 2. Anemia. Continue to monitor hemoglobin and hematocrit levels. 3. Bone disorder. Monitor calcium and phosphorus levels. 4. Left sided pleural effusion status post thoracentesis. Fluid was removed. 5. Sepsis secondary to pneumonia. The patient has completed antibiotic course. Acute hypoxemic respiratory failure. Etiology is multifactorial secondary to pleural effusions. 6. Continue current treatment plan. Continue supplemental oxygen. 7. History of breast cancer with likely recurrence. 8. Hypothyroidism. Continue Synthroid. Dictated By: Doug Arredondo DO /[email or web address]/joaquin /Document#: [id number]
--- NOTE | 2017-06-23 15:35 | PN ---
DATE: 06/20/2017 SUBJECTIVE DATA: The patient remains serious, but stable condition. No other events noted. No hemoptysis, hematemesis or hematochezia. OBJECTIVE DATA: VITAL SIGNS: Blood pressure 94/55, respirations 16, pulse 113, temperature 97.8. HEENT: Head is normocephalic. NECK: Supple. HEART: Regular rate. LUNGS: Diminished breath sounds at the base. ABDOMEN: Soft, nontender to palpation. No rebound or guarding. EXTREMITIES: Negative for clubbing or cyanosis. No edema. DERMATOLOGIC: No rashes. MUSCULOSKELETAL: No joint effusions. NEUROLOGIC: No change in exam. MEDICATIONS: Reviewed. LABORATORY AND DIAGNOSTIC DATA: BUN 33, creatinine 1. White count 15.1. Other labs were reviewed. ASSESSMENT AND PLAN: 1. Nonoliguric acute kidney injury with unknown baseline creatinine. Etiology secondary to hemodynamics. The patient's renal function has improved. Continue current treatment plan. 2. Anemia. Continue to monitor H and H levels. 3. Mineral bone disorder. Will monitor calcium and phosphorus levels. 4. Left-sided pleural effusion status post thoracentesis. Patient is pending Pleurx catheter placement. 5. Sepsis secondary to pneumonia. Patient is completing antibiotic course. 6. History of breast cancer with recurrence likely. 7. Hypothyroidism. Continue Synthroid. 8. Hypoxemic respiratory failure secondary to pleural effusion. Continue current medical management. Follow up with Pulmonary. Dictated By: Doug Arredondo DO /shanda/ec /Document#: [id number]
--- NOTE | 2017-06-24 06:51 | PN ---
DATE: 06/21/2017 SUBJECTIVE DATA: The patient is stable, but ill. No events overnight. OBJECTIVE DATA: VITAL SIGNS: Blood pressure 87/53, respirations 18, pulse 103, temperature 97.5. HEENT: Head is normocephalic. NECK: Supple. HEART: Regular rate. LUNGS: Diminished breath sounds at the base. ABDOMEN: Soft, nontender to palpation. No rebound or guarding. EXTREMITIES: Negative for clubbing, cyanosis or edema. DERMATOLOGIC: No rashes. MUSCULOSKELETAL: No joint effusions. NEUROLOGIC: No change in exam. MEDICATIONS: Reviewed. LABORATORY AND DIAGNOSTIC DATA: White count 17.9, hemoglobin 15.2, platelet count 128,000. Sodium 141, potassium 3.4, BUN 38, creatinine 0.97. ASSESSMENT AND PLAN: 1. acute kidney injury, etiology secondary to hemodynamics. Renal function has improved. Continue to monitor closely on diuretic therapy. 2. Hypertension. Etiology may be secondary to sepsis, hemodynamics. The patient is status post IV fluid. Continue to monitor closely. 3. Anemia . 4. . 5. Left-sided pleural effusion status post thoracentesis. 6. Sepsis, treated with antibiotic regimen. 7. Hypoxic respiratory failure. Continue nasal cannula. Continue nebulizers. 8. History of breast cancer, with likely recurrence. The patient is status post Pleurx catheter placement. DISPOSITION: The patient has overall poor prognosis. Dictated By: Doug Arredondo DO /[email or web address]/[email or web address] /Document#: [id number]
== END 2017-06-21 20:41 | DRG 843 ==
LOC: E/R 17:10 → MS3 06-10 00:01 → MS4 06-10 16:09 → ICU 06-11 19:57 → MS4 06-13 17:52 → PP2 06-15 16:16
PROVIDERS: ADMIT Family Medicine; ATTEND Family Medicine
PROC: 0W9B3ZX Drainage of Left Pleural Cavity, Percutaneous Approach, Diagnostic (ICD-10-PCS; principal; 2017-06-10)
PROC: 0W9B3ZX Drainage of Left Pleural Cavity, Percutaneous Approach, Diagnostic (ICD-10-PCS; 2017-06-13)
PROC: 0W9B30Z Drainage of Left Pleural Cavity with Drainage Device, Percutaneous Approach (ICD-10-PCS; 2017-06-20)
DX: C79.9 Secondary malignant neoplasm of unspecified site (principal); A41.9 Sepsis, unspecified organism; R65.21 Severe sepsis with septic shock; J96.01 Acute respiratory failure with hypoxia; E41 Nutritional marasmus; G92 Toxic encephalopathy; E43 Unspecified severe protein-calorie malnutrition; J18.9 Pneumonia, unspecified organism; N17.9 Acute kidney failure, unspecified; Z68.1 Body mass index [BMI] 19.9 or less, adult; J91.0 Malignant pleural effusion; I95.9 Hypotension, unspecified; E03.9 Hypothyroidism, unspecified; Z66 Do not resuscitate; Z51.5 Encounter for palliative care; M54.9 Dorsalgia, unspecified; B95.61 Methicillin susceptible Staphylococcus aureus infection as the cause of diseases classified elsewhere; B95.0 Streptococcus, group A, as the cause of diseases classified elsewhere; Z85.3 Personal history of malignant neoplasm of breast; Z91.81 History of falling; Z88.0 Allergy status to penicillin; Z88.2 Allergy status to sulfonamides
CPT/HCPCS: 32555; 71010; 71250; 74176; 75989; 76942; 80048; 80053; 80061; 80076; 80202; 81001; 81003; 82550; 82553; 82565; 82945; 83036; 83615; 83735; 83986; 84100; 84155; 84157; 84300; 84443; 84484; 84520; 85025; 85610; 85730; 87040; 87070; 87081; 87086; 87102; 87116; 88104; 88305; 88341; 88342; 89051; 89190; 93005; 96374; 96375; 96376; J1940; C9113; J0692; J1956; J2250; J2270; J2405; J3010; J3370; J7030; J7040